=== PATIENT | male | born 1945 | race Caucasian/White ===

== ENCOUNTER 2020-05-10 19:11 | Emergency (ER) | payer MEDICARE, OTHER ==
--- NOTE | 2020-05-10 19:53 | EDM.PDOC ---
ED HPI GENERAL MEDICAL PROBLEM - General Chief Complaint: Respiratory Problem Stated Complaint: COVID +, SOB Time Seen by Provider: 05/10/20 19:37 Source of Information: Reports: Patient History Limitations: Reports: No Limitations - History of Present Illness INITIAL COMMENTS - FREE TEXT/NARRATIVE: Mr. Cristina is a very pleasant 74-year-old gentleman with a past medical history significant for coronary artery disease and an HI, status post one coronary stent, who states that a friend of his tested positive for COVID-19 last week, therefore the patient got tested this past Monday morning, 05/06/2020, receiving a positive result yesterday, 05/09/2020. He states that he has had a burning sensation in his chest with exertion for the past 2 to 3 days, along with a nonproductive cough. He then developed dyspnea on exertion today, and noticed a "gurgling" sound when he laid back earlier today. No recent fever, nausea, vomiting, or diarrhea. Here in the ED, the patient's initial BP is found to be elevated at 191/95, otherwise, the patient is hemodynamically stable, afebrile, saturating 94% on room air. Prior to 2 to 3 days ago, the patient denies having a recent fever, chills, sore throat, ear pain, nasal or sinus congestion, cough, dyspnea, chest pain, palpitations, nausea, vomiting, constipation, diarrhea, abdominal pain, urinary symptoms, recent weight gain or weight loss, recent bloody bowel movements or black bowel movements, recent joint aches, headaches, or rashes. - Related Data Allergies Allergy/AdvReac Type Severity Reaction Status Date / Time caffeine [From Diurex] Allergy Severe Cannot Verified 05/10/20 19:41 Remember magnesium salicylate Allergy Severe Cannot Verified 05/10/20 19:41 [From Diurex] Remember Proagsh-Eul-Kqc Reductase Allergy Severe Cannot Verified 05/10/20 19:41 Inhibitor Remember Home Meds: Home Meds Acyclovir 1 tab PO Q12H #14 tablet 05/10/20 [Rx] Levofloxacin [Levaquin] 1 tab PO QPM #7 tablet 05/10/20 [Rx] Past Medical History Cardiovascular History: Reports: CAD, HI Gastrointestinal History: Reports: Celiac Disease - Infectious Disease History Infectious Disease History: Reports: Novel Coronavirus (dx'd 05/06/2020) - Past Surgical History Cardiovascular Surgical History: Reports: Coronary Artery Stent (x 1) ED ROS GENERAL - Review of Systems Review Of Systems: Comprehensive ROS is negative, except as noted in HPI. ED EXAM, GENERAL - Physical Exam Exam: See Below Exam Limited By: No Limitations General Appearance: Alert, WD/WN, No Apparent Distress Eye Exam: Bilateral Eye: EOMI, Normal Inspection Ears: Normal External Exam, Hearing Grossly Normal Nose: Normal Inspection Throat/Mouth: Normal Inspection, Normal Lips, Normal Voice, No Airway Compromise Head: Atraumatic, Normocephalic Neck: Normal Inspection, Full Range of Motion Respiratory/Chest: No Respiratory Distress, No Accessory Muscle Use, Rhonchi (scattered). No: Decreased Breath Sounds, Crackles, Wheezing, Stridor, Prolonged Expiration Cardiovascular: Normal Peripheral Pulses, Regular Rate, Rhythm, No Gallop, No JVD, No Murmur, No Rub Peripheral Pulses: 3+: Radial (L), Radial (R) GI/Abdominal: Normal Bowel Sounds, Soft, Non-Tender, No Organomegaly, No Distention, No Abnormal Bruit, No Mass Back Exam: Normal Inspection, Full Range of Motion, NT Extremities: Normal Inspection, Normal Range of Motion, Normal Capillary Refill, Other (1+ pitting pretibial edema bilaterally) Neurological: Alert, Oriented, Normal Cognition, No Motor/Sensory Deficits Psychiatric: Normal Affect Skin Exam: Warm, Dry, Intact, Normal Color, No Rash #1 Interpretation EKG Date: 05/10/20 Time: 20:24 Rhythm: NSR Rate (Beats/Min): 81 Peggs: Normal P-Wave: Present QRS: RBBB ST-T: Elevated (ST elevation w/ T-wave inversion leads III, aVF only.) QT: Prolonged (QTc 473 ms) Comparison: NA - No Prior EKG Course - Vital Signs Last Recorded V/S: Last Vital Signs Temp 36.7 C 05/10/20 19:37 Pulse 78 05/10/20 19:37 Resp 18 05/10/20 19:37 BP 191/85 H 05/10/20 19:37 Pulse Ox 94 L 05/10/20 19:37 - Orders/Labs/Meds Orders: Active Orders 24 hr Category Date Time Status Chest 2V [CR] Stat Exams 05/10/20 19:48 Taken Labs: Laboratory Tests 05/10/20 05/10/20 05/10/20 Range/Units 20:10 20:10 20:10 WBC 1.43 L* (4.23-9.07) K/mm3 RBC 2.49 L (4.63-6.08) M/mm3 Hgb 8.9 L (13.7-17.5) gm/dl Hct 26.1 L (40.1-51.0) % MCV 104.8 H (79.0-92.2) fl MCH 35.7 H (25.7-32.2) pg MCHC 34.1 (32.2-35.5) g/dl RDW Std Deviation 57.6 H (35.1-43.9) fL Plt Count 18 L* (163-337) K/mm3 MPV 9.1 L (9.4-12.3) fl Neutrophils % (Manual) 12 L (40-60) % Band Neutrophils % 0 (0-10) % Lymphocytes % (Manual) 86 H (20-40) % Atypical Lymphs % 0 % Monocytes % (Manual) 1 L (2-10) % Eosinophils % (Manual) 1 (0.8-7.0) % Basophils % (Manual) 0 L (0.2-1.2) Platelet Estimate Marked inc Plt Morphology Comment See note Polychromasia Few Anisocytosis 2+ moderate Macrocytosis 2+ moderate Ovalocytes 1+ slight RBC Morph Comment Not Reportable Percent Retic (0.51-1.81) % D-Dimer, Quantitative 0.79 H (0.19-0.50) mg/L Sodium 137 (136-145) mEq/L Potassium 4.2 (3.5-5.1) mEq/L Chloride 100 (98-107) mEq/L Carbon Dioxide 30 (21-32) mEq/L Anion Gap 11.2 (5-15) BUN 20 H (7-18) mg/dL Creatinine 1.2 (0.7-1.3) mg/dL Est Cr Clr Drug Dosing 56.61 mL/min Estimated GFR (MDRD) 59 (>60) mL/min BUN/Creatinine Ratio 16.7 (14-18) Glucose 115 (83-115) mg/dL Calcium 8.6 (8.5-10.1) mg/dL Magnesium 1.8 (1.8-2.4) mg/dl Iron (65-175) ug/dL TIBC (100-400) ug/dL % Saturation (20-55) % Transferrin (202-364) mg/dL Ferritin (26-388) ng/ml Total Bilirubin 0.4 (0.2-1.0) mg/dL AST 17 (15-37) U/L ALT 50 (16-63) U/L Alkaline Phosphatase 76 (46-116) U/L Lactate Dehydrogenase (85-227) U/L Troponin I < 0.017 (0.00-0.056) ng/mL Total Protein 8.0 (6.4-8.2) g/dl Albumin 3.8 (3.4-5.0) g/dl Globulin 4.2 gm/dL Albumin/Globulin Ratio 0.9 L (1-2) Vitamin B12 (193-986) pg/ml Folate (8.6-58.9) ng/mL 05/10/20 05/10/20 05/10/20 Range/Units 20:10 20:10 20:10 WBC (4.23-9.07) K/mm3 RBC (4.63-6.08) M/mm3 Hgb (13.7-17.5) gm/dl Hct (40.1-51.0) % MCV (79.0-92.2) fl MCH (25.7-32.2) pg MCHC (32.2-35.5) g/dl RDW Std Deviation (35.1-43.9) fL Plt Count (163-337) K/mm3 MPV (9.4-12.3) fl Neutrophils % (Manual) (40-60) % Band Neutrophils % (0-10) % Lymphocytes % (Manual) (20-40) % Atypical Lymphs % % Monocytes % (Manual) (2-10) % Eosinophils % (Manual) (0.8-7.0) % Basophils % (Manual) (0.2-1.2) Platelet Estimate Plt Morphology Comment Polychromasia Anisocytosis Macrocytosis Ovalocytes RBC Morph Comment Percent Retic 0.92 (0.51-1.81) % D-Dimer, Quantitative (0.19-0.50) mg/L Sodium (136-145) mEq/L Potassium (3.5-5.1) mEq/L Chloride (98-107) mEq/L Carbon Dioxide (21-32) mEq/L Anion Gap (5-15) BUN (7-18) mg/dL Creatinine (0.7-1.3) mg/dL Est Cr Clr Drug Dosing mL/min Estimated GFR (MDRD) (>60) mL/min BUN/Creatinine Ratio (14-18) Glucose (83-115) mg/dL Calcium (8.5-10.1) mg/dL Magnesium (1.8-2.4) mg/dl Iron 111 (65-175) ug/dL TIBC 248 (100-400) ug/dL % Saturation 45 (20-55) % Transferrin 198 L (202-364) mg/dL Ferritin 968 H (26-388) ng/ml Total Bilirubin (0.2-1.0) mg/dL AST (15-37) U/L ALT (16-63) U/L Alkaline Phosphatase (46-116) U/L Lactate Dehydrogenase 241 H (85-227) U/L Troponin I (0.00-0.056) ng/mL Total Protein (6.4-8.2) g/dl Albumin (3.4-5.0) g/dl Globulin gm/dL Albumin/Globulin Ratio (1-2) Vitamin B12 298 (193-986) pg/ml Folate 11.4 (8.6-58.9) ng/mL Meds: Medications Discontinued Medications Generic Name Dose Route Start Last Admin Trade Name Freq PRN Reason Stop Dose Admin Acyclovir 400 mg 05/10/20 22:39 05/10/20 22:56 Zovirax PO 05/10/20 22:40 400 mg ONETIME ONE Administration Bamlanivimab 700 mg/ Sodium 200 mls @ 200 mls/hr 05/10/20 19:57 05/10/20 20:26 Chloride IV 05/10/20 19:58 200 mls/hr ONETIME STA Administration Protocol Levofloxacin 500 mg 05/10/20 22:39 05/10/20 22:55 Levaquin PO 05/10/20 22:40 500 mg ONETIME STA Administration - Re-Assessments/Exams Free Text/Narrative Re-Assessment/Exam: 05/10/20 19:58 I spoke with the patient regarding administration of bamlanivimab. The patient will be provided with a bamlanivimab fact sheet to read and review. I pointed out that this drug has been approved for emergency use authorization (EUA) and has not been fully FDA reviewed or approved. The patient meets EUA requirements, in that he is over 65 years of age with a BMI over 35. I discussed with the patient that there are other potential treatment options that are currently not FDA approved to treat COVID-19. All questions that the patient had were answered, and the patient would like us to proceed with administration of the medicine. 05/10/20 20:34 The patient's CBC is remarkable for a WBC count significantly depressed at 1.43, with an H/H depressed at 8.9/26.1, and severe thrombocytopenia of 18,000. We have no prior labs to compare. I discussed this with the patient. He states that he believes he had blood work performed at his PCPs office about 2 months ago, and that everything was normal. I offered the patient the opportunity to change his mind on receiving bamlanivimab, although I noted that pancytopenia is not a listed contraindication to receiving it. The patient would like to proceed with receiving it, anyway. The patient will need to follow-up with his PCP for referral to a Medical Office Technologist. In order to facilitate their evaluation, I have ordered an Fe/TIBC/transferrin/% saturation, ferritin, LDH, reticulocyte count, folic acid level, and vitamin B12 level. 05/10/20 21:22 2-view chest radiograph is read by Hodan as "Minimal hazy opacities over the lung bases." The patient's D-dimer is slightly elevated at 0.79. His LDH is slightly elevated at 241, his ferritin elevated at 968, and his transferrin slightly depressed at 198, with the remainder of his iron studies being unremarkable. His reticulocyte count is 0.92%, giving him a reticulocyte index of only 0.3%. 05/10/20 22:13 Notified by Morenita HILTON that the bamlanivimab has finished infusing. 05/10/20 22:21 Test results discussed with the patient. I recommended that he contact Dr. Melgoza's office first thing tomorrow morning to notify them of his pancytopenia. COVID-19 is known to cause lymphopenia and thrombocytopenia, but I find no record of it causing leukopenia, anemia, or pancytopenia. He appears to have bone marrow failure, possibly due to myelodysplastic syndrome or some other marrow condition. He states that he does not currently have a pulse oximeter, but I believe he qualifies for one from [facility]. If he gets a pulse oximeter, I would like him to return to the ED if his oxygen saturation drops down to 90% or below. 05/10/20 22:37 Case discussed with Tennille at [facility] [place] [facility] call at 2230, then with the oral surgery technician Dr. Felice Gr at 22:33. He, too, is not aware of COVID-19 causing pancytopenia and he is concerned that the patient may be suffering from a separate illness, such as leukemia, causing his pancytopenia. For today's purposes, he recommended that we start the patient on Levaquin 500 mg daily and acyclovir 400 mg twice daily. The patient may be discharged home, then follow- up with his PCP as planned tomorrow. Departure - Departure Time of Disposition: 22:45 Disposition: Home, Self-Care 01 Condition: Good Clinical Impression: COVID-19, Pancytopenia - Discharge Information *PRESCRIPTION DRUG MONITORING PROGRAM REVIEWED*: Not Applicable *COPY OF PRESCRIPTION DRUG MONITORING REPORT IN PATIENT CECY: Not Applicable Prescriptions: Acyclovir 1 tab PO Q12H #14 tablet Levofloxacin [Levaquin] 1 tab PO QPM #7 tablet Instructions: COVID-19 Referrals: Christopher Melgoza MD [Primary Care Provider] - [place] MD [Ordering Only Provider] - Keshawn An MD [Ordering Only Provider] - Forms: ED Department Discharge Additional Instructions: You were seen in the emergency room for 2 to 3 days of burning in your chest with exertion, along with shortness of breath with exertion today, and a dry cough, after testing positive for COVID-19 on 05/06/2020. Work-up in the ER included a number of blood tests, a chest x-ray, and an ECG. Your blood tests found that you have pancytopenia = a low white blood cell count, a low hemoglobin/hematocrit, and low platelets. The remainder of your work-up was unremarkable. You were given the anti-COVID medicine bamlanivimab in the ER. This medicine will hopefully prevent you from getting sick enough that you need to be hospitalized. The cause of your pancytopenia is not yet known. Further work-up, including a possible bone marrow biopsy, is needed. We recommend that you contact the office of your PCP, Dr. Christopher Melgoza, first thing tomorrow morning. Let them know that you have pancytopenia, and that you need to be referred to a Medical Office Technologist. Because your white blood cell count is so low, you have been started on the anti-viral medicine acyclovir and the antibiotic Levaquin. Prescriptions for both acyclovir and Levaquin have been sent to the clinic pharmacy, located in the [facility] across the street from the hospital. Take 1 tablet of acyclovir every 12 hours, starting tomorrow morning, 05/11/2020, as prescribed. Take 1 tablet of Levaquin every evening, starting tomorrow evening, 05/11/2020 as prescribed. You probably qualify for a finger pulse oximeter from [facility]. Your oxygen saturation drops as low as 90%, consistently, please return to the ER for reevaluation. Sepsis Event Note (ED) - Evaluation Sepsis Screening Result: No Definite Risk - Focused Exam Vital Signs: Vital Signs Temp Pulse Resp BP Pulse Ox 05/10/20 19:37 36.7 C 78 18 191/85 H 94 L - My Orders Last 24 Hours: My Active Orders 05/10/20 19:48 Chest 2V [CR] Stat - Assessment/Plan Last 24 Hours: My Active Orders 05/10/20 19:48 Chest 2V [CR] Stat
[2020-05-10] MEDS ORDERED: Levofloxacin 500 MG Tab PO STA (22:39)
[2020-05-10] MEDS ORDERED: Acyclovir 200 MG Cap PO ONE (22:39)
--- NOTE | 2020-05-11 10:16 | CR ---
PROCEDURE INFORMATION: Exam: XR Chest, 2 Views Exam date and time: 05/10/2020 8:12 PM Age: 74 years old Clinical indication: Shortness of breath; Patient HX: Cough, SOB, covid positive, symptoms onset 6 days ago and worsening TECHNIQUE: Imaging protocol: XR of the chest Views: 2 views. COMPARISON: No relevant prior studies available. FINDINGS: Lungs: Unremarkable. No consolidation. Pleural space: Unremarkable. No pleural effusion. No pneumothorax. Heart/Mediastinum: Unremarkable. No cardiomegaly. Vasculature: Tortuous thoracic aorta. Bones/joints: Anterior thoracic spurs. Other findings: Minimal hazy opacity over the lung bases. IMPRESSION: Patchy bilateral lower lobe atelectasis and or minimal pneumonia. Thank you for allowing us to participate in the care of your patient. Dictated and Authenticated by: Norman Pandey MD 05/10/2020 9:38 PM Central Time ([place] & [place]) [place]
== END 2020-05-10 23:03 | disposition home or self-care (01) ==
LOC: JD.ED 19:11
DX: U07.1 COVID-19 (principal); D61.818 Other pancytopenia; Z88.8 Allergy status to other drugs, medicaments and biological substances
CPT/HCPCS: 36415; 71046; 80053; 82607; 82728; 82746; 83540; 83615; 83735; 84466; 84484; 85007; 85027; 85045; 85379; 93005; 96365; 99285; A9270; J7050

== ENCOUNTER 2020-05-15 12:20 | Emergency (ER) | payer MEDICARE, OTHER ==
[2020-05-15] MEDS ORDERED: Sodium Chloride 0.9% 10 ML Syringe FLUSH PRN (15:21)
--- NOTE | 2020-05-15 15:38 | EDM.PDOC ---
ED HPI GENERAL MEDICAL PROBLEM - General Chief Complaint: General Stated Complaint: ABNORMAL BLOOD WORK SENT BY [facility] Time Seen by Provider: 05/15/20 15:05 Source of Information: Reports: Patient, Old Records (ER visit from 05/10/2020), Provider (Dr. Shira Cuadra), RN Notes Reviewed History Limitations: Reports: No Limitations - History of Present Illness INITIAL COMMENTS - FREE TEXT/NARRATIVE: Patient is a 74-year-old male who presents to the ER via direction from Dr. Shira Cuadra for abnormal blood work. The patient is status post COVID-19 infection, just off quarantine. He was evaluated in this ER on 05/10/[address] Lopez, was found to have a low white blood cell count at 1.43, low red blood cell count of 2.49, hemoglobin low at 8.9, and his platelet count was low at 18. Dr. Lopez was concerned for the possibility of leukemia, the patient was to follow-up with his primary care provider for repeat labs and a referral to hematology. The patient did as such, but found that his platelets were even lower today, and a level of 3 with pancytopenia once again noted, so Dr. Cuadra sent him to the ER for IVIG therapy. He states that he still has a generalized cough relating to a post Covid infection but otherwise feeling well no fevers or chills, shortness of breath, nausea/vomiting/diarrhea. - Related Data Allergies Allergy/AdvReac Type Severity Reaction Status Date / Time caffeine [From Diurex] Allergy Severe Cannot Verified 05/10/20 19:41 Remember magnesium salicylate Allergy Severe Cannot Verified 05/10/20 19:41 [From Diurex] Remember Katgqza-Nqz-Grf Reductase Allergy Severe Cannot Verified 05/10/20 19:41 Inhibitor Remember Home Meds: Home Meds Acyclovir 1 tab PO Q12H #14 tablet 05/10/20 [Rx] Levofloxacin [Levaquin] 1 tab PO QPM #7 tablet 05/10/20 [Rx] Aspirin [Halfprin] 81 mg PO DAILY 05/15/20 [History] Doxazosin [Cardura] 4 mg PO DAILY 05/15/20 [History] Losartan [Cozaar] 50 mg PO DAILY 05/15/20 [History] Pitavastatin Calcium [Livalo] 1 mg PO DAILY 05/15/20 [History] Spironolactone [Aldactone] 25 mg PO DAILY 05/15/20 [History] Ubidecarenone [Co Q-10] 100 mg PO DAILY 05/15/20 [History] carvediloL [Coreg] 12.5 mg PO DAILY 05/15/20 [History] Past Medical History Cardiovascular History: Reports: CAD, High Cholesterol, Hypertension, [place], Stents Gastrointestinal History: Reports: Celiac Disease - Infectious Disease History Infectious Disease History: Reports: Novel Coronavirus - Past Surgical History Cardiovascular Surgical History: Reports: Coronary Artery Stent Other Cardiovascular Surgeries/Procedures: stent Social & Family History - Tobacco Use Tobacco Use Status *Q: Never Tobacco User - Caffeine Use Caffeine Use: Reports: Coffee, Soda, Tea - Recreational Drug Use Recreational Drug Use: No ED ROS GENERAL - Review of Systems Review Of Systems: Comprehensive ROS is negative, except as noted in HPI. ED EXAM, GENERAL - Physical Exam Exam: See Below Exam Limited By: No Limitations General Appearance: Alert, WD/WN, No Apparent Distress Respiratory/Chest: No Respiratory Distress, Lungs Clear, Normal Breath Sounds, No Accessory Muscle Use, Chest Non-Tender Cardiovascular: Normal Peripheral Pulses, Regular Rate, Rhythm, No Murmur Peripheral Pulses: 2+: Radial (L), Radial (R) Extremities: Normal Inspection, Normal Capillary Refill Neurological: Alert, Oriented, Normal Cognition, No Motor/Sensory Deficits Psychiatric: Normal Affect, Normal Mood Skin Exam: Warm, Dry, Intact, Normal Color, No Rash Course - Vital Signs Last Recorded V/S: Last Vital Signs Temp 97.9 F 05/15/20 13:53 Pulse 58 L 05/15/20 13:53 Resp 20 05/15/20 13:53 BP 138/84 05/15/20 13:53 Pulse Ox 100 05/15/20 13:53 - Orders/Labs/Meds Orders: Active Orders 24 hr Category Date Time Status Peripheral IV Care [RC] . DIRECTED Care 05/15/20 15:22 Active Sodium Chloride 0.9% [Saline Flush] Med 05/15/20 15:21 Active 10 ml FLUSH ASDIRECTED PRN Peripheral IV Insertion Adult [OM.PC] Routine Oth 05/15/20 15:21 Ordered Medication Orders Sodium Chloride (Saline Flush) 10 ml FLUSH ASDIRECTED PRN PRN Reason: Keep Vein Open Meds: Medications Generic Name Dose Route Start Last Admin Trade Name Nicolette PRN Reason Stop Dose Admin Sodium Chloride 10 ml 05/15/20 15:21 Saline Flush FLUSH ASDIRECTED PRN Keep Vein Open - Re-Assessments/Exams Free Text/Narrative Re-Assessment/Exam: 05/15/20 15:41 The patient presents to the ED for his pancytopenia, and low platelet level. This was initially uncovered on his ER visit at 05/10/2020. Laboratory evaluation done at [facility] today does demonstrate a low white cell count of 2.6, red blood cell count at 2.24, hemoglobin is low at 8.3, and a platelet count of 3. He was initially sent over here by Dr. Shira Cuadra for the possibility of IVIG, I did call her, for dosing recommendations, but she states she did not even see the patient in clinic and sent him over here just for the lab values. She suggests calling hematology for further management purposes. Dr. Lopez did speak with hematology at [facility] in [place] at the patient's last ER visit, I will call them for further recommendations at this time. He spoke with a Dr. Felice Gr originally. 05/15/20 16:30 I have made multiple calls, I did talk to Dr. Prasad regarding the patient's status, he does not believe that IVIG would be helpful, this does not sound like this is a ITP process. He does state that the patient may benefit from 1 unit of platelets however. Unfortunately we do not have access to this, it would take a prolonged amount of time to get here, the patient is vitally stable and would not like to wait. I did explain to him that the services he needs are best available to him in [facility], he states that he does have a daughter that lives there, and after discharge here he will go to [place], in case he would feel some lingering symptoms and he would need to go to the ER, and they could possibly do platelet infusion at that time. Otherwise the automation manager suggested getting a repeat blood levels on Monday or Monday, and he does stress the fact the patient needs a follow-up with hematology for possible bone marrow biopsy. Departure - Departure Time of Disposition: 16:33 Disposition: Home, Self-Care 01 Condition: Good Clinical Impression: Pancytopenia - Discharge Information *PRESCRIPTION DRUG MONITORING PROGRAM REVIEWED*: No *COPY OF PRESCRIPTION DRUG MONITORING REPORT IN PATIENT CECY: No Referrals: Christopher Melgoza MD [Primary Care Provider] - Forms: ED Department Discharge Additional Instructions: You were evaluated in the ER today regarding your pancytopenia once again. Hematology was called on your behalf, they state that you may benefit from a single unit of platelets, unfortunately that is not something we would be able to do an expeditious process in the ER today. At this time her vitals are stable, you are not bleeding, so you will be discharged home with general conservative recommendations. I do recommend that you follow-up with hematology or your primary care provider, Dr. Travis, Monday for redraw of your labs to make sure that your levels are not getting in fact lower. You will need to follow-up with hematology for a possible bone marrow biopsy for further evaluation and management. You indicated you had a daughter in [place], I would recommend staying with her this weekend, so if your symptoms deteriorate, you are at a facility that would be able to help you with what you need. Please return to the ER however at any time if symptoms change or worsen. Sepsis Event Note (ED) - Evaluation Sepsis Screening Result: No Definite Risk - Focused Exam Vital Signs: Vital Signs Temp Pulse Resp BP Pulse Ox 05/15/20 13:53 97.9 F 58 L 20 138/84 100 - My Orders Last 24 Hours: My Active Orders 05/15/20 15:21 Sodium Chloride 0.9% [Saline Flush] 10 ml FLUSH ASDIRECTED PRN Peripheral IV Insertion Adult [OM.PC] Routine 05/15/20 15:22 Peripheral IV Care [RC] . DIRECTED - Assessment/Plan Last 24 Hours: My Active Orders 05/15/20 15:21 Sodium Chloride 0.9% [Saline Flush] 10 ml FLUSH ASDIRECTED PRN Peripheral IV Insertion Adult [OM.PC] Routine 05/15/20 15:22 Peripheral IV Care [RC] . DIRECTED
== END 2020-05-15 16:53 | disposition home or self-care (01) ==
LOC: JD.ED 12:20
DX: D61.818 Other pancytopenia (principal); I25.10 Atherosclerotic heart disease of native coronary artery without angina pectoris; E78.00 Pure hypercholesterolemia, unspecified; I10 Essential (primary) hypertension; I25.2 Old myocardial infarction; Z95.5 Presence of coronary angioplasty implant and graft; Z88.8 Allergy status to other drugs, medicaments and biological substances; Z79.82 Long term (current) use of aspirin; Z79.899 Other long term (current) drug therapy
CPT/HCPCS: 99284

== ENCOUNTER 2020-06-30 14:34 | Inpatient (IN) | payer MEDICARE, OTHER ==
[2020-06-30] MEDS ORDERED: Ondansetron 4 MG/2 ML SDV IV PRN (14:38)
[2020-06-30] MEDS ORDERED: Albuterol/Ipratropium 3.0-0.5 MG/3 ML Neb Soln NEB PRN (14:38)
[2020-06-30] MEDS ORDERED: Promethazine 12.5 MG in Sodium Chloride 0.9% 50 ML IV PRN (14:38)
[2020-06-30] MEDS ORDERED: HYDROmorphone 0.5 MG/0.5 ML Syringe IVPUSH PRN (14:38)
[2020-06-30] MEDS ORDERED: Ibuprofen 600 MG Tab PO PRN (14:38)
[2020-06-30] MEDS ORDERED: Acetaminophen/HYDROcodone 325-5 MG Tab PO PRN (14:38)
[2020-06-30] MEDS ORDERED: Zolpidem 5 MG Tab PO PRN (14:38)
[2020-06-30] MEDS ORDERED: Polyethylene Glycol 3350 Powder 17 GM Packet PO PRN (14:38)
[2020-06-30] MEDS ORDERED: Acetaminophen 650 MG Supp RECTAL PRN (14:38)
--- NOTE | 2020-06-30 14:38 | PCM.HP.2 ---
H&P History of Present Illness - General Date of Service: 06/30/20 Admit Problem/Dx: Severe Neutropenia Source of Information: Patient, Old Records, Provider, RN Notes Reviewed, Significant Other History Limitations: Reports: No Limitations - History of Present Illness Initial Comments - Free Text/Narative: This is a 74 yo elderly white male with past medical hx/o COVID 19 Infection and Aplastic Anemia S/p BM biopsy 2 weeks currently on chemotherapy with Anti Thymocyte Globulin, Cyclosporines, Methylprednisolone as well Filgrastin (Zarxio), and Obesity who comes to us for further management of Severe Neutropenia and Community Acquired Pneumonia diagnosed at the clinic today while he was being seen for routine follow up labs. He reports having subjective fever as high as 100.5 F, chills, cough, shortness of breath, fatigue and generalized weakness. No GI/ complaints. His initial work up at the clinic showed a Hgb of 8.6 grams, Platelet of 14K, and ANC of 0. He received an infusion of zarxio prior to coming up to the hospital for further treatment. He had 2 units of PRBC and 1 unit of Platelet infusion yesterday. He does not look septic or in acute respiratory distress. - Related Data Allergies/Adverse Reactions: Allergies Allergy/AdvReac Type Severity Reaction Status Date / Time tamsulosin [From Flomax] Allergy Cannot Verified 06/10/20 13:19 Remember caffeine [From Diurex] AdvReac Unknown Cough Verified 06/30/20 15:55 magnesium salicylate AdvReac Unknown Cough Verified 06/30/20 15:55 [From Diurex] [id number] Reductase AdvReac Unknown Leg Cramps Verified 06/30/20 15:55 Inhibitor hydrochlorothiazide AdvReac Cough Verified 06/30/20 15:55 rosuvastatin [From Crestor] AdvReac Leg Cramps Verified 06/30/20 15:55 simvastatin [From Zocor] AdvReac Leg Cramps Verified 06/30/20 15:55 Home Medications: Home Meds Acyclovir 1 tab PO Q12H #14 tablet 05/10/20 [Rx] Levofloxacin [Levaquin] 1 tab PO QPM #7 tablet 05/10/20 [Rx] Aspirin [Halfprin] 81 mg PO DAILY 05/15/20 [History] Doxazosin [Cardura] 4 mg PO DAILY 05/15/20 [History] Losartan [Cozaar] 50 mg PO DAILY 05/15/20 [History] Pitavastatin Calcium [Livalo] 1 mg PO DAILY 05/15/20 [History] Spironolactone [Aldactone] 25 mg PO DAILY 05/15/20 [History] Ubidecarenone [Co Q-10] 100 mg PO DAILY 05/15/20 [History] carvediloL [Coreg] 12.5 mg PO DAILY 05/15/20 [History] Past Medical History Cardiovascular History: Reports: CAD, High Cholesterol, Hypertension, [place], Stents Gastrointestinal History: Reports: Celiac Disease - Infectious Disease History Infectious Disease History: Reports: Novel Coronavirus - Past Surgical History Cardiovascular Surgical History: Reports: Coronary Artery Stent Other Cardiovascular Surgeries/Procedures: stent Social & Family History - Caffeine Use Caffeine Use: Reports: Coffee, Soda, Tea H&P Review of Systems - Review of Systems: Review Of Systems: See Below General: Reports: Fever, Chills, Weakness, Fatigue. Denies: Night Sweats, Decreased Appetite, Weight Loss HEENT: Denies: Headaches, Rhinitis Pulmonary: Reports: Shortness of Breath, Cough. Denies: Pleuritic Chest Pain Cardiovascular: Reports: Chest Pain. Denies: Lightheadedness, Claudication Gastrointestinal: Denies: Abdominal Pain, Nausea, Vomiting Genitourinary: Denies: Frequency Musculoskeletal: Denies: Joint Pain Skin: Denies: Cyanosis, Bruising, Rash Psychiatric: Denies: Confusion, Depression, Anxiety, Hallucinations Neurological: Denies: Dizziness, Seizure, Syncope, Difficulty Walking, Gait Disturbance Hematologic/Lymphatic: Reports: No Symptoms Immunologic: Reports: No Symptoms Exam - Exam Exam: See Below - Exam General: Alert, Oriented, Other (Morbidly Obese) HEENT: Conjunctiva Clear, EACs Clear, EOMI, Hearing Intact, Mucosa Moist & [place], Nares Patent, Normal Nasal Septum, Posterior Pharynx Clear, Pupils Equal Neck: Supple, Trachea Midline, Other (short and thick). No: JVD Lungs: Clear to Auscultation, Normal Respiratory Effort, Decreased Breath Sounds Cardiovascular: Regular Rate, Regular Rhythm GI/Abdominal Exam: Normal Bowel Sounds, Soft, Non-Tender, No Organomegaly, No Distention, No Abnormal Bruit, Other (Obese) (Male) Exam: Deferred Rectal (Males) Exam: Deferred Back Exam: Normal Inspection, Decreased Range of Motion, Vertebral Tenderness Extremities: Normal Inspection, Non-Tender, No Pedal Edema, Normal Capillary Refill, Pedal Edema, Other (trace bilateral lower extremity edema) Peripheral Pulses: 1+: Dorsalis Pedis (L), Dorsalis Pedis (R) Skin: Warm, Dry, Intact Neuro Extensive - Mental Status: Oriented x3, Normal Cognition, Memory Intact Neuro Extensive - Motor, Sensory, Reflexes: CN II-XII Intact, Normal Gait Psychiatric: Alert, Normal Affect, Normal Mood - Patient Data Result Diagrams: 06/30/20 15:05 06/30/20 15:05 Problem List Initiated/Reviewed/Updated: Yes Assessment/Plan Comment:: This is a 74 yo elderly white male with past medical hx/o COVID 19 Infection and Aplastic Anemia S/p BM biopsy 2 weeks currently on chemotherapy with Anti Thymocyte Globulin, Cyclosporines, Methylprednisolone as well Filgrastin (Z arxio), and Obesity who comes to us as a direct admit from the clinic for further management for Severe Neutropenia and Community Acquired Pneumonia diagnosed at the clinic today while he was being seen for routine follow up labs. Assessment: Acute: Sepsis secondary to community acquired pneumonia Severe neutropenia with ANC of 0 Pancytopenia: Moderate anemia, Severe neutropenia, Severe thrombocytopenia and Relative lymphocytosis via BM * Hgb 7 grams yesterday and received 2 units of PRBC at the clinic * Platelet 1K yesterday and received 1 unit of Platelet at the clinic * Cut off: infuse blood if symptomatic and Platelet if < 10K or < 20K with active bleeding/fever per Oncology provider Aplastic Anemia currently on chemotherapy: cyclosporin, methylprednisolone, and zarxio S/p BM Biopsy : * Hypocellular marrow with markedly decreased trilineage hematopoiesis. No increased blasts. Relative lymphohistiocytic hyperplasia with plasmacytosis. * Deemed ineligible for transplant from note obtained at the clinic Right Middle Lobe PNA Lactic Acidosis * LA of 4.0 * Likely from underlying sepsis * Volume resuscitation Hx/o Covid -19 Infection in Nov Hyperglycemia * Carries no hx/o Diabetes or Glucose Intolerance * However he has been on steroid * Screen for A1C and Accu-check TIDAC with ISS Hypocalcemia * Non corrected Ca level of 8.4 * Will monitor Hypomagnesemia * Mg of 1.6 * Likely due to inadequate intake * Will replete Mildly Elevated T. Bilirubin of 1.3 Elevated CRP of 11.6 Hypoalbuminemia with Albumin of 2.5 Class III Obese Chronic: Aplastic Anemia, S/p BM Biopsy and Morbid Obesity Plan: Admit to [facility]. Sepsis work up. Routine AM Labs. MRSA screen. IV Cefepime 1 gram Q8H, Micafungin 100 mg daily, Acyclovir 730 mg IV Q8H for empiric treatment. Dietary consult for weight management. Viral panel. No repeat COVID- 19 test, he is within the 90-day window per hospital protocol. Isolation protocol. DVT/GI prophylaxis: SCDs due to low platelet level and H2B. Resume some home medications once verified. PT/OT when appropriate. Avoid ASA and Anticoagulations. Type and screen 2 units of PRBC-repeat Hgb is 7.6 grams and symptomatic right now. Mg supplement. Code status is full. Prognosis is guarded. Critical care time spent: > 45 mins 1503: Patient is infusing 2.5L of crystalloid fluids for initial volume resuscitation.
[2020-06-30] MEDS ORDERED: Sodium Chloride 0.9% 1,000 ML IV SCH (14:45)
[2020-06-30] MEDS ORDERED: Fluconazole/Normal Saline 200 MG in Premix Bag 1 BAG IV SCH (15:00)
[2020-06-30] MEDS: Lactated Ringers 1,000 ML IV SCH ×3 (17:07→20:21)
[2020-06-30] MEDS: Micafungin 100 MG in Sodium Chloride 0.9% 100 ML IV SCH (17:15)
[2020-06-30] MEDS ORDERED: Magnesium Sulfate/Water 2 GM/50 ML BAG IV ONE (18:00)
[2020-06-30 19:47] LABS: HEMOGLOBIN A1C 7.1 % (4.50-6.20)
[2020-06-30] MEDS ORDERED: Cefepime 1 GM in Premix Bag 1 BAG IV SCH (20:00)
--- NOTE | 2020-07-01 07:45 | PCM.PN ---
- General Info Date of Service: 07/01/20 Admission Dx/Problem (Free Text): Severe Neutropenia Subjective Update: No overnight or acute issues. He feels better this morning. Afebrile and his WBC is slightly up to 0.82. His Hgb is stable at 7.7 grams and Platelet of 14K. Functional Status: Reports: Pain Controlled, Tolerating Diet, Ambulating, Urinating - Review of Systems General: Denies: Fever, Weakness, Chills HEENT: Denies: Contact Lenses Pulmonary: Denies: Shortness of Breath, Cough Cardiovascular: Denies: Chest Pain Gastrointestinal: Denies: Abdominal Pain, Nausea, Vomiting Genitourinary: Denies: Dysuria, Burning Musculoskeletal: Denies: Joint Pain Skin: Denies: Cyanosis, Pruritis, Rash Neurological: Denies: Confusion, Dizziness, Headache, Syncope, Weakness Psychiatric: Denies: Depression, Anxiety - Patient Data Vitals - Most Recent: Last Vital Signs Temp 36.4 C 07/01/20 04:19 Pulse 63 07/01/20 04:19 Resp 16 07/01/20 04:19 BP 134/97 H 07/01/20 04:19 Pulse Ox 95 07/01/20 04:19 Weight - Most Recent: 131.36 kg I&O - Last 24 Hours: Intake & Output 06/30/20 07/01/20 07/01/20 22:59 06:59 14:59 Intake Total 4200 Output Total 300 800 Balance -300 3400 Lab Results Last 24 Hours: Laboratory Results - last 24 hr 06/30/20 06/30/20 06/30/20 Range/Units 15:05 15:05 15:05 WBC 0.56 L* (4.23-9.07) K/mm3 RBC 2.50 L (4.63-6.08) M/mm3 Hgb 7.6 L (13.7-17.5) gm/dl Hct 21.9 L (40.1-51.0) % MCV 87.6 D (79.0-92.2) fl MCH 30.4 (25.7-32.2) pg MCHC 34.7 (32.2-35.5) g/dl RDW Std Deviation 46.0 H (35.1-43.9) fL Plt Count 22 L* (163-337) K/mm3 MPV 11.3 (9.4-12.3) fl Neut % (Auto) (34.0-67.9) % Lymph % (Auto) (21.8-53.1) % [place] % (Auto) (5.3-12.2) % Eos % (Auto) (0.8-7.0) Baso % (Auto) (0.1-1.2) % Neut # (Auto) (1.78-5.38) K/mm3 Lymph # (Auto) (1.32-3.57) K/mm3 [place] # (Auto) (0.30-0.82) K/mm3 Eos # (Auto) (0.04-0.54) K/mm3 Baso # (Auto) (0.01-0.08) K/mm3 Neutrophils % (Manual) 17 L (40-60) % Band Neutrophils % 3 (0-10) % Lymphocytes % (Manual) 73 H (20-40) % Atypical Lymphs % 0 % Monocytes % (Manual) 7 (2-10) % Eosinophils % (Manual) 0 L (0.8-7.0) % Basophils % (Manual) 0 L (0.2-1.2) Manual Slide Review Toxic Granulation Few Platelet Estimate Marked dec Plt Morphology Comment See note Anisocytosis 1+ slight Macrocytosis 1+ slight RBC Morph Comment Not Reportable ESR (0-15) mm/hr Sodium 138 (136-145) mEq/L Potassium 4.0 (3.5-5.1) mEq/L Chloride 101 (98-107) mEq/L Carbon Dioxide 24 (21-32) mEq/L Anion Gap 17.0 H (5-15) BUN 31 H (7-18) mg/dL Creatinine 1.2 (0.7-1.3) mg/dL Est Cr Clr Drug Dosing 56.61 mL/min Estimated GFR (MDRD) 59 (>60) mL/min BUN/Creatinine Ratio 25.8 H (14-18) Glucose 238 H (83-115) mg/dL POC Glucose (83-110) mg/dL Hemoglobin A1c (4.50-6.20) % Lactic Acid 4.0 H* (0.4-2.0) mmol/L Calcium 8.4 L (8.5-10.1) mg/dL Magnesium 1.6 L (1.8-2.4) mg/dl Total Bilirubin 1.3 H (0.2-1.0) mg/dL AST 7 L (15-37) U/L ALT 36 (16-63) U/L Alkaline Phosphatase 49 (46-116) U/L C-Reactive Protein (<1.0) mg/dL Total Protein 6.4 (6.4-8.2) g/dl Albumin 2.5 L (3.4-5.0) g/dl Globulin 3.9 gm/dL Albumin/Globulin Ratio 0.6 L (1-2) Blood Type Gel Antibody Screen Crossmatch 06/30/20 06/30/20 06/30/20 Range/Units 15:05 15:05 15:05 WBC (4.23-9.07) K/mm3 RBC (4.63-6.08) M/mm3 Hgb (13.7-17.5) gm/dl Hct (40.1-51.0) % MCV (79.0-92.2) fl MCH (25.7-32.2) pg MCHC (32.2-35.5) g/dl RDW Std Deviation (35.1-43.9) fL Plt Count (163-337) K/mm3 MPV (9.4-12.3) fl Neut % (Auto) (34.0-67.9) % Lymph % (Auto) (21.8-53.1) % [place] % (Auto) (5.3-12.2) % Eos % (Auto) (0.8-7.0) Baso % (Auto) (0.1-1.2) % Neut # (Auto) (1.78-5.38) K/mm3 Lymph # (Auto) (1.32-3.57) K/mm3 [place] # (Auto) (0.30-0.82) K/mm3 Eos # (Auto) (0.04-0.54) K/mm3 Baso # (Auto) (0.01-0.08) K/mm3 Neutrophils % (Manual) (40-60) % Band Neutrophils % (0-10) % Lymphocytes % (Manual) (20-40) % Atypical Lymphs % % Monocytes % (Manual) (2-10) % Eosinophils % (Manual) (0.8-7.0) % Basophils % (Manual) (0.2-1.2) Manual Slide Review Toxic Granulation Platelet Estimate Plt Morphology Comment Anisocytosis Macrocytosis RBC Morph Comment ESR 91 H (0-15) mm/hr Sodium (136-145) mEq/L Potassium (3.5-5.1) mEq/L Chloride (98-107) mEq/L Carbon Dioxide (21-32) mEq/L Anion Gap (5-15) BUN (7-18) mg/dL Creatinine (0.7-1.3) mg/dL Est Cr Clr Drug Dosing mL/min Estimated GFR (MDRD) (>60) mL/min BUN/Creatinine Ratio (14-18) Glucose (83-115) mg/dL POC Glucose (83-110) mg/dL Hemoglobin A1c (4.50-6.20) % Lactic Acid (0.4-2.0) mmol/L Calcium (8.5-10.1) mg/dL Magnesium (1.8-2.4) mg/dl Total Bilirubin (0.2-1.0) mg/dL AST (15-37) U/L ALT (16-63) U/L Alkaline Phosphatase (46-116) U/L C-Reactive Protein 11.6 H* (<1.0) mg/dL Total Protein (6.4-8.2) g/dl Albumin (3.4-5.0) g/dl Globulin gm/dL Albumin/Globulin Ratio (1-2) Blood Type B POSITIVE Gel Antibody Screen Negative Crossmatch See Detail 06/30/20 06/30/20 06/30/20 Range/Units 17:36 18:17 18:17 WBC (4.23-9.07) K/mm3 RBC (4.63-6.08) M/mm3 Hgb (13.7-17.5) gm/dl Hct (40.1-51.0) % MCV (79.0-92.2) fl MCH (25.7-32.2) pg MCHC (32.2-35.5) g/dl RDW Std Deviation (35.1-43.9) fL Plt Count (163-337) K/mm3 MPV (9.4-12.3) fl Neut % (Auto) (34.0-67.9) % Lymph % (Auto) (21.8-53.1) % [place] % (Auto) (5.3-12.2) % Eos % (Auto) (0.8-7.0) Baso % (Auto) (0.1-1.2) % Neut # (Auto) (1.78-5.38) K/mm3 Lymph # (Auto) (1.32-3.57) K/mm3 [place] # (Auto) (0.30-0.82) K/mm3 Eos # (Auto) (0.04-0.54) K/mm3 Baso # (Auto) (0.01-0.08) K/mm3 Neutrophils % (Manual) (40-60) % Band Neutrophils % (0-10) % Lymphocytes % (Manual) (20-40) % Atypical Lymphs % % Monocytes % (Manual) (2-10) % Eosinophils % (Manual) (0.8-7.0) % Basophils % (Manual) (0.2-1.2) Manual Slide Review Toxic Granulation Platelet Estimate Plt Morphology Comment Anisocytosis Macrocytosis RBC Morph Comment ESR (0-15) mm/hr Sodium (136-145) mEq/L Potassium (3.5-5.1) mEq/L Chloride (98-107) mEq/L Carbon Dioxide (21-32) mEq/L Anion Gap (5-15) BUN (7-18) mg/dL Creatinine (0.7-1.3) mg/dL Est Cr Clr Drug Dosing mL/min Estimated GFR (MDRD) (>60) mL/min BUN/Creatinine Ratio (14-18) Glucose (83-115) mg/dL POC Glucose 202 H (83-110) mg/dL Hemoglobin A1c 7.10 H (4.50-6.20) % Lactic Acid 2.2 H* (0.4-2.0) mmol/L Calcium (8.5-10.1) mg/dL Magnesium (1.8-2.4) mg/dl Total Bilirubin (0.2-1.0) mg/dL AST (15-37) U/L ALT (16-63) U/L Alkaline Phosphatase (46-116) U/L C-Reactive Protein (<1.0) mg/dL Total Protein (6.4-8.2) g/dl Albumin (3.4-5.0) g/dl Globulin gm/dL Albumin/Globulin Ratio (1-2) Blood Type Gel Antibody Screen Crossmatch 06/30/20 07/01/20 07/01/20 Range/Units 21:08 05:50 05:50 WBC 0.82 L* (4.23-9.07) K/mm3 RBC 2.57 L (4.63-6.08) M/mm3 Hgb 7.7 L (13.7-17.5) gm/dl Hct 22.7 L (40.1-51.0) % MCV 88.3 (79.0-92.2) fl MCH 30.0 (25.7-32.2) pg MCHC 33.9 (32.2-35.5) g/dl RDW Std Deviation 46.1 H (35.1-43.9) fL Plt Count 14 L* (163-337) K/mm3 MPV 10.1 (9.4-12.3) fl Neut % (Auto) 7.4 L (34.0-67.9) % Lymph % (Auto) 84.1 H (21.8-53.1) % [place] % (Auto) 4.9 L (5.3-12.2) % Eos % (Auto) 1.2 (0.8-7.0) Baso % (Auto) 1.2 (0.1-1.2) % Neut # (Auto) 0.06 L (1.78-5.38) K/mm3 Lymph # (Auto) 0.69 L (1.32-3.57) K/mm3 [place] # (Auto) 0.04 L (0.30-0.82) K/mm3 Eos # (Auto) 0.01 L (0.04-0.54) K/mm3 Baso # (Auto) 0.01 (0.01-0.08) K/mm3 Neutrophils % (Manual) (40-60) % Band Neutrophils % (0-10) % Lymphocytes % (Manual) (20-40) % Atypical Lymphs % % Monocytes % (Manual) (2-10) % Eosinophils % (Manual) (0.8-7.0) % Basophils % (Manual) (0.2-1.2) Manual Slide Review Abnormal smear Toxic Granulation Platelet Estimate Plt Morphology Comment Anisocytosis Macrocytosis RBC Morph Comment ESR (0-15) mm/hr Sodium (136-145) mEq/L Potassium (3.5-5.1) mEq/L Chloride (98-107) mEq/L Carbon Dioxide (21-32) mEq/L Anion Gap (5-15) BUN (7-18) mg/dL Creatinine (0.7-1.3) mg/dL Est Cr Clr Drug Dosing mL/min Estimated GFR (MDRD) (>60) mL/min BUN/Creatinine Ratio (14-18) Glucose (83-115) mg/dL POC Glucose (83-110) mg/dL Hemoglobin A1c (4.50-6.20) % Lactic Acid 2.0 (0.4-2.0) mmol/L Calcium (8.5-10.1) mg/dL Magnesium 1.8 (1.8-2.4) mg/dl Total Bilirubin (0.2-1.0) mg/dL AST (15-37) U/L ALT (16-63) U/L Alkaline Phosphatase (46-116) U/L C-Reactive Protein 13.4 H* (<1.0) mg/dL Total Protein (6.4-8.2) g/dl Albumin (3.4-5.0) g/dl Globulin gm/dL Albumin/Globulin Ratio (1-2) Blood Type Gel Antibody Screen Crossmatch Phil Results Last 24 Hours: Microbiology 06/30/20 15:11 Anaerobic Blood Culture - Preliminary Blood - Venous Gp Cocci In Pairs And Chains 06/30/20 18:50 Influenza Type A Antigen Screen - Final Nasopharyngeal Swab NEGATIVE INFLUENZA A VIRUS AG REFERENCE RANGE: NEGATIVE Influenza Type B Antigen Screen - Final NEGATIVE INFLUENZA B VIRUS AG REFERENCE RANGE: NEGATIVE Med Orders - Current: Current Medications Acetaminophen (Tylenol) 650 mg PO Q4H PRN PRN Reason: Pain (Mild 1-3)/fever Acetaminophen (Tylenol) 650 mg RECTAL Q4H PRN PRN Reason: Pain (mild 1-3) Hydrocodone Bitart/Acetaminophen ([place] 325-5 Mg) 1 tab PO Q4H PRN PRN Reason: Pain (moderate 4-6) Albuterol/Ipratropium (Duoneb 3.0-0.5 Mg/3 Ml) 3 ml NEB Q4H PRN PRN Reason: Shortness Of Breath/wheezing Hydralazine HCl (Apresoline) 20 mg IVPUSH Q4H PRN PRN Reason: Hypertension Hydromorphone HCl (Dilaudid) 0.25 mg IVPUSH Q2H PRN PRN Reason: Pain (severe 7-10) Promethazine HCl 12.5 mg/ (Sodium Chloride) 50.5 mls @ 100 mls/hr IV Q6H PRN PRN Reason: Nausea/Vomiting Acyclovir 730 mg/ Sodium (Chloride) 264.6 mls @ 130 mls/hr IV Q8H [facility] Last Admin: 07/01/20 02:18 Dose: 130 mls/hr Documented by: Micafungin Sodium 100 mg/ (Sodium Chloride) 100 mls @ 100 mls/hr IV Q24H [facility] Last Admin: 06/30/20 17:15 Dose: 100 mls/hr Documented by: Cefepime HCl 2 gm/ Premix 50 mls @ 100 mls/hr IV Q8H [facility] Ibuprofen (Motrin) 600 mg PO Q6H PRN PRN Reason: Pain (moderate 4-6) Last Admin: 06/30/20 21:40 Dose: 600 mg Documented by: Insulin Human Lispro (Humalog) [facility]; Protocol Last Admin: 07/01/20 06:30 Dose: Not Given Documented by: Ondansetron HCl (Zofran) 4 mg IV Q6H PRN PRN Reason: Nausea/Vomiting Polyethylene Glycol (Miralax) 17 gm PO DAILY PRN PRN Reason: Constipation Senna/Docusate Sodium (Senna Plus) 1 tab PO BID PRN PRN Reason: Constipation Zolpidem Tartrate (Ambien) 5 mg PO BEDTIME PRN PRN Reason: Sleep Discontinued Medications Sodium Chloride (Normal Saline) 1,000 mls @ 100 mls/hr IV ASDIRECTED [facility] Stop: 07/01/20 00:44 Last Admin: 06/30/20 21:40 Dose: 100 mls/hr Documented by: Cefepime HCl 1 gm/ Premix 50 mls @ 100 mls/hr IV Q12H [facility] Last Admin: 06/30/20 20:17 Dose: 100 mls/hr Documented by: Lactated Ringer's (Ringers, Lactated) 1,000 mls @ 999 mls/hr IV BOLUS PRIYA Stop: 07/02/20 17:15 Last Admin: 06/30/20 20:21 Dose: 999 mls/hr Documented by: Magnesium Sulfate (Magnesium Sulfate In Water Premix) 2 gm in 50 mls @ 25 mls/hr IV ONETIME ONE Stop: 06/30/20 19:59 Last Admin: 06/30/20 17:22 Dose: 25 mls/hr Documented by: - Exam Quality Assessment: No: Supplemental Oxygen General: Alert, Oriented, Cooperative, No Acute Distress, Other (Obese) HEENT: Pupils Equal, Pupils Reactive, EOMI, Mucous Membr. Moist/[place] Neck: Supple, Trachea Midline, No JVD, Other (short and thick) Lungs: Clear to Auscultation, Normal Respiratory Effort Cardiovascular: Regular Rate, Regular Rhythm GI/Abdominal Exam: Normal Bowel Sounds, Soft, Non-Tender, No Organomegaly, No Distention, No Abnormal Bruit, Other (obese) (Male) Exam: Deferred Back Exam: Normal Inspection, Decreased Range of Motion Extremities: Normal Inspection, Normal Range of Motion, Non-Tender, No Pedal Edema, Normal Capillary Refill Peripheral Pulses: 1+: Dorsalis Pedis (L), Dorsalis Pedis (R) Skin: Warm, Dry, Intact Neurological: No New Focal Deficit, Normal Gait Psy/Mental Status: Alert, Normal Affect, Normal Mood Sepsis Event Note - Evaluation Sepsis Screening Result: No Definite Risk - Focused Exam Vital Signs: Vital Signs Temp Pulse Resp BP Pulse Ox 07/01/20 04:19 36.4 C 63 16 134/97 H 95 06/30/20 23:18 36.8 C 49 L 16 143/58 H 94 L 06/30/20 21:54 110/78 06/30/20 21:46 129/73 06/30/20 20:38 36.7 C 69 20 152/76 H 95 - Problem List Review Problem List Initiated/Reviewed/Updated: Yes - My Orders Last 24 Hours: My Active Orders 06/30/20 Lunch Regular Diet [DIET] 06/30/20 14:38 Patient Status [ADT] Routine Height and Weight [RC] 06 Oxygen Therapy [RC] PRN Up ad Sherri [RC] BID VTE/DVT Education [RC] DAILY Vital Signs [RC] Q4HR Consult to Case Management/Cable [employer]er [employer] [CONS] Routine OT Evaluation and Treatment [CONS] Routine PT Evaluation and Treatment [CONS] Routine Respiratory Care Assess and Treatment [CONS] Routine CULTURE SPUTUM + SMEAR [RM] Stat Acetaminophen [TylenoL] 650 mg PO Q4H PRN Acetaminophen [Tylenol] 650 mg RECTAL Q4H PRN Acetaminophen/HYDROcodone [[place] 325-5 MG] 1 tab PO Q4H PRN Albuterol/Ipratropium [DuoNeb 3.0-0.5 MG/3 ML] 3 ml NEB Q4H PRN Docusate Sodium/Sennosides [Senna Plus] 1 tab PO BID PRN HYDROmorphone [Dilaudid] 0.25 mg IVPUSH Q2H PRN Ibuprofen [Motrin] 600 mg PO Q6H PRN Ondansetron [Zofran] 4 mg IV Q6H PRN Promethazine [Phenergan] 12.5 mg Sodium Chloride 0.9% [Normal Saline] 50 ml IV Q6H Zolpidem [Ambien] 5 mg PO BEDTIME PRN polyethylene glycoL 3350 [MiraLAX] 17 gm PO DAILY PRN Blood Culture x2 Reflex Set [OM.PC] Stat Resuscitation Status Routine 06/30/20 14:39 Cardiac Monitoring [RC] CONTINUOUS Intake and Output [RC] 04,16 Pulse Oximetry [RC] PRN 06/30/20 14:41 RT Aerosol Therapy [RC] ASDIRECTED 06/30/20 14:42 Sequential Compression Device [OM.PC] Per Unit Routine 06/30/20 14:43 Antiembolic Devices [RC] BID 06/30/20 15:00 VIRAL CULTURE, GENERAL Stat 06/30/20 15:05 CULTURE BLOOD [BC] Stat RED BLOOD CELLS LP [BBK] Routine TYPE AND SCREEN [BBK] Routine 06/30/20 15:10 CULTURE URINE [RM] Stat 06/30/20 15:11 CULTURE BLOOD [BC] Stat 06/30/20 16:01 Transfuse Red Blood Cells [COMM] Routine 06/30/20 16:15 CULTURE MRSA [RM] Stat 06/30/20 16:16 hydrALAZINE [Apresoline] 20 mg IVPUSH Q4H PRN 06/30/20 16:26 Consult 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] [CONS] Routine 06/30/20 16:27 Accu Check [Blood Glucose Check, Bedside] [RC] TIDAC 06/30/20 17:00 Insulin Lispro [HumaLOG] See Protocol SUBCUT TIDAC Micafungin [Mycamine] 100 mg Sodium Chloride 0.9% [Normal Saline] 100 ml IV Q24H 06/30/20 17:07 SCD [Sequential Compression Device] [OM.PC] Routine 06/30/20 18:00 Acyclovir [Zovirax] 730 mg Sodium Chloride 0.9% [Normal Saline] 250 ml IV Q8H 06/30/20 18:17 PROCALCITONIN [REF] Stat 06/30/20 19:01 Communication Order [RC] ASDIRECTED 07/01/20 04:35 METH-RESIST S.AUR,MRSA BY PCR [MOLEC] Routine 07/01/20 05:11 Chest 1V Frontal [CR] AM 07/01/20 08:00 Cefepime [Maxipime in D5W 2 GM/50 ML] 2 gm Premix Bag 1 bag IV Q8H 07/02/20 05:11 CBC WITH AUTO DIFF [HEME] AM CRP [C-REACTIVE PROTEIN] [CHEM] AM MAGNESIUM [CHEM] AM 07/03/20 05:11 CBC WITH AUTO DIFF [HEME] AM CRP [C-REACTIVE PROTEIN] [CHEM] AM MAGNESIUM [CHEM] AM 07/04/20 05:11 CBC WITH AUTO DIFF [HEME] AM CRP [C-REACTIVE PROTEIN] [CHEM] AM MAGNESIUM [CHEM] AM 07/05/20 05:11 CBC WITH AUTO DIFF [HEME] AM MAGNESIUM [CHEM] AM 07/06/20 05:11 CBC WITH AUTO DIFF [HEME] AM MAGNESIUM [CHEM] AM 07/07/20 05:11 CBC WITH AUTO DIFF [HEME] AM MAGNESIUM [CHEM] AM - Plan Plan:: This is a 74 yo elderly white male with past medical hx/o COVID 19 Infection and Aplastic Anemia S/p BM biopsy 2 weeks currently on chemotherapy with Anti Thymocyte Globulin, Cyclosporines, Methylprednisolone as well Filgrastin (Zarxio), and Obesity who comes to us as a direct admit from the clinic for further management for Severe Neutropenia and Community Acquired Pneumonia diagnosed at the clinic today while he was being seen for routine follow up labs . Assessment: Acute: Sepsis secondary to community acquired pneumonia Bacteremia secondary to GP in Pairs and Chains Severe neutropenia with ANC of 0 Pancytopenia: Moderate anemia, Severe neutropenia, Severe thrombocytopenia and Relative lymphocytosis via BM * Hgb 7 grams yesterday and received 2 units of PRBC at the clinic; Hgb today is 7.7 grams * Platelet 1K yesterday and received 1 unit of Platelet at the clinic; Platelet today is 14K * Cut off: infuse blood if symptomatic and Platelet if < 10K or < 20K with active bleeding/fever per Oncology provider Aplastic Anemia currently on chemotherapy: cyclosporin, methylprednisolone, and zarxio S/p BM Biopsy : * Hypocellular marrow with markedly decreased trilineage hematopoiesis. No increased blasts. Relative lymphohistiocytic hyperplasia with plasmacytosis. * Deemed ineligible for transplant from note obtained at the clinic Right Middle Lobe PNA Lactic Acidosis, resolved * LA of 4.0-->now 2.0 * Likely from underlying sepsis * Volume resuscitation Hx/o Covid -19 Infection in Nov Hyperglycemia * Due to new onset of diabetes * Carries no hx/o Diabetes or Glucose Intolerance * However he has been on steroid * A1C of 7.10 * Continue Lantus 10 units subQ BID and Accu-check TIDAC with ISS * Diabetic education Hypocalcemia * Non corrected Ca level of 8.4 * Will monitor Hypomagnesemia,resolved * Mg of 1.6-->1.8 * Likely due to inadequate intake * Will replete Mildly Elevated T. Bilirubin of 1.3 Elevated CRP of 11.6-->13.4 Hypoalbuminemia with Albumin of 2.5 Class III Obese Chronic: Aplastic Anemia, S/p BM Biopsy and Morbid Obesity Plan: Continue current treatment. Routine AM Labs. MRSA and Viral Panel pending. Continue IV Cefepime 1 gram Q8H, Micafungin 100 mg daily, Acyclovir 730 mg IV Q8H for empiric treatment. Dietary consult for weight management. Isolation protocol. DVT/GI prophylaxis: SCDs due to low platelet level and H2B. Resume some home medications once verified. PT/OT when appropriate. Continue to avoid ASA and Anticoagulations. Resume Home Meds once verified. Code status is full. Prognosis is guarded-good.
[2020-07-01] MEDS: Cefepime 2 GM in Premix Bag 1 BAG IV SCH ×2 (08:16→15:09)
--- NOTE | 2020-07-01 09:09 | CR ---
Chest: Portable view of the chest was obtained. Comparison: Prior chest x-ray of 06/30/20. Parenchymal density is noted within the right lung base. This is slightly more dense but otherwise appears unchanged in size. Lungs otherwise are clear. Heart size and mediastinum are normal. Bony structures are grossly intact. Impression: 1. Increased density within previous right lower lobe pneumonia. No change in size. 2. No other acute abnormality is appreciated. Diagnostic code #3
[2020-07-01] MEDS: predniSONE 5 MG Tab PO SCH (09:14)
[2020-07-01] MEDS: predniSONE 20 MG Tab PO SCH (09:14)
[2020-07-01] MEDS: Acetaminophen 325 MG Tab PO PRN (14:12)
[2020-07-01] MEDS ORDERED: Sodium Chloride 0.9% 250 ML IV SCH (17:00)
[2020-07-01] MEDS: Insulin Glarg,Human.Rec.Analog 100 Unit/ML SUBCUT SCH (17:08)
[2020-07-01] MEDS: Micafungin 100 MG in Sodium Chloride 0.9% 100 ML IV SCH (17:09)
[2020-07-01] MEDS ORDERED: CYCLOSPORINE PO SCH (21:00)
[2020-07-01] MEDS: Doxazosin 4 MG Tab PO SCH (21:08)
[2020-07-01] MEDS: Carvedilol 12.5 MG Tab PO SCH (21:21)
[2020-07-01] MEDS: hydrALAZINE 20 MG/ML SDV IVPUSH PRN (21:39)
[2020-07-01 21:42] LABS: BORDETELLA PARAPERT IS1001 Not Detected (Not Detected)
[2020-07-02] MEDS: Acetaminophen 325 MG Tab PO PRN (00:06)
[2020-07-02] MEDS: Cefepime 2 GM in Premix Bag 1 BAG IV SCH ×3 (00:07→16:05)
[2020-07-02 07:40] LABS: VITAMIN D,25-HYDROXY 40.5 ng/ml (30.0-100.0)
--- NOTE | 2020-07-02 07:54 | PCM.PN ---
- General Info Date of Service: 07/02/20 Admission Dx/Problem (Free Text): Severe Neutropenia Subjective Update: No overnight or acute issues. He feels a lot better this morning. He has no fever and his WBC has gone up to 1.21. His Hgb has improve to 8.1 grams but his platelet drops to 12K. His glucose overall is well controlled. His viral panel to include MRSA test are both negative. His blood culture is positive for GNR and GP in In Pairs and Chains. Functional Status: Reports: Pain Controlled, Tolerating Diet, Ambulating, Urinating - Review of Systems General: Denies: Fever, Weakness, Fatigue, Malaise, Chills HEENT: Denies: Headaches, Sinus Congestion, Sore Throat, Rhinitis Pulmonary: Denies: Shortness of Breath, Pleuritic Chest Pain, Cough, Sputum Cardiovascular: Denies: Chest Pain, Dyspnea on Exertion, Lightheadedness Gastrointestinal: Denies: Abdominal Pain, Constipation, Decreased Appetite, Diarrhea, Nausea, Vomiting Genitourinary: Denies: Dysuria, Burning Musculoskeletal: Denies: Joint Pain Skin: Denies: Cyanosis, Bruising, Pruritis, Rash Neurological: Denies: Confusion, Dizziness, Weakness, Gait Disturbance Psychiatric: Denies: Depression, Anxiety - Patient Data Vitals - Most Recent: Last Vital Signs Temp 36.6 C 07/02/20 03:55 Pulse 66 07/02/20 03:54 Resp 18 07/02/20 03:54 BP 136/89 07/02/20 03:54 Pulse Ox 94 L 07/02/20 03:54 Weight - Most Recent: 129.682 kg I&O - Last 24 Hours: Intake & Output 07/01/20 07/02/20 07/02/20 22:59 06:59 14:59 Intake Total 1310 1000 Output Total 750 2050 Balance 560 -1050 Lab Results Last 24 Hours: Laboratory Results - last 24 hr 06/30/20 06/30/20 06/30/20 Range/Units 15:05 15:10 18:17 WBC (4.23-9.07) K/mm3 RBC (4.63-6.08) M/mm3 Hgb (13.7-17.5) gm/dl Hct (40.1-51.0) % MCV (79.0-92.2) fl MCH (25.7-32.2) pg MCHC (32.2-35.5) g/dl RDW Std Deviation (35.1-43.9) fL Plt Count (163-337) K/mm3 MPV (9.4-12.3) fl Neut % (Auto) (34.0-67.9) % Lymph % (Auto) (21.8-53.1) % [place] % (Auto) (5.3-12.2) % Eos % (Auto) (0.8-7.0) Baso % (Auto) (0.1-1.2) % Neut # (Auto) (1.78-5.38) K/mm3 Lymph # (Auto) (1.32-3.57) K/mm3 [place] # (Auto) (0.30-0.82) K/mm3 Eos # (Auto) (0.04-0.54) K/mm3 Baso # (Auto) (0.01-0.08) K/mm3 Manual Slide Review Sodium (136-145) mEq/L Potassium (3.5-5.1) mEq/L Chloride (98-107) mEq/L Carbon Dioxide (21-32) mEq/L Anion Gap (5-15) BUN (7-18) mg/dL Creatinine (0.7-1.3) mg/dL Est Cr Clr Drug Dosing mL/min Estimated GFR (MDRD) (>60) mL/min BUN/Creatinine Ratio (14-18) Glucose (83-115) mg/dL POC Glucose (83-110) mg/dL Calcium (8.5-10.1) mg/dL Magnesium (1.8-2.4) mg/dl C-Reactive Protein (<1.0) mg/dL Triglycerides (<150) mg/dL Cholesterol (<200) mg/dL LDL Cholesterol Direct (<100) mg/dL HDL Cholesterol (40-59) mg/dL Vitamin D 25-Hydroxy (30.0-100.0) ng/ml Procalcitonin 0.51 H ng/mL Urine Color (Yellow) Urine Appearance (Clear) Urine pH (5.0-8.0) Ur Specific [place] (1.005-1.030) Urine Protein (Negative) Urine Glucose (UA) (Negative) Urine Ketones (Negative) Urine Occult Blood (Negative) Urine Nitrite (Negative) Urine Bilirubin (Negative) Urine Urobilinogen (0.2-1.0) Ur Leukocyte Esterase (Negative) Urine RBC (0-5) /hpf Urine WBC (0-5) /hpf Ur Squamous Epith Cells (0-5) /hpf Urine Bacteria (FEW) /hpf Urine Mucus (FEW) /hpf Ur Random Creatinine 143.5 H (30.0-125.0) mg/dL Ur Random Microalbumin 114.1 H (1.3-20.0) mg/L Microalb/Creat Ratio 79.5 H (0-30) mg/g Adenovirus (PCR) (Not Detected) B. pertussis DNA (PCR) (Not Detected) B.parapertussis DNA PCR (Not Detected) C. pneumoniae DNA (PCR) (Not Detected) Coronavirus OC43 (PCR) (Not Detected) Coronavirus HKU1 (PCR) (Not Detected) Coronavirus 229E (PCR) (Not Detected) Coronavirus NL63 (PCR) (Not Detected) Human Metapneumovir PCR (Not Detected) Influenza A (RT-PCR) (Not Detected) Influenza B (RT-PCR) (Not Detected) M. pneumoniae (PCR) (Not Detected) Parainfluenza 1 (PCR) (Not Detected) Parainfluenza 2 (PCR) (Not Detected) Parainfluenza 3 (PCR) (Not Detected) Parainfluenza 4 (PCR) (Not Detected) RSV (PCR) (Not Detected) Entero/Rhino (PCR) (Not Detected) SARS-CoV-2 (PCR) (Not Detected) MRSA (PCR) Blood Type B POSITIVE Gel Antibody Screen Negative Crossmatch See Detail 07/01/20 07/01/20 07/01/20 Range/Units 04:35 06:07 08:15 WBC (4.23-9.07) K/mm3 RBC (4.63-6.08) M/mm3 Hgb (13.7-17.5) gm/dl Hct (40.1-51.0) % MCV (79.0-92.2) fl MCH (25.7-32.2) pg MCHC (32.2-35.5) g/dl RDW Std Deviation (35.1-43.9) fL Plt Count (163-337) K/mm3 MPV (9.4-12.3) fl Neut % (Auto) (34.0-67.9) % Lymph % (Auto) (21.8-53.1) % [place] % (Auto) (5.3-12.2) % Eos % (Auto) (0.8-7.0) Baso % (Auto) (0.1-1.2) % Neut # (Auto) (1.78-5.38) K/mm3 Lymph # (Auto) (1.32-3.57) K/mm3 [place] # (Auto) (0.30-0.82) K/mm3 Eos # (Auto) (0.04-0.54) K/mm3 Baso # (Auto) (0.01-0.08) K/mm3 Manual Slide Review Sodium (136-145) mEq/L Potassium (3.5-5.1) mEq/L Chloride (98-107) mEq/L Carbon Dioxide (21-32) mEq/L Anion Gap (5-15) BUN (7-18) mg/dL Creatinine (0.7-1.3) mg/dL Est Cr Clr Drug Dosing mL/min Estimated GFR (MDRD) (>60) mL/min BUN/Creatinine Ratio (14-18) Glucose (83-115) mg/dL POC Glucose 108 (83-110) mg/dL Calcium (8.5-10.1) mg/dL Magnesium (1.8-2.4) mg/dl C-Reactive Protein (<1.0) mg/dL Triglycerides (<150) mg/dL Cholesterol (<200) mg/dL LDL Cholesterol Direct (<100) mg/dL HDL Cholesterol (40-59) mg/dL Vitamin D 25-Hydroxy (30.0-100.0) ng/ml Procalcitonin ng/mL Urine Color Yellow (Yellow) Urine Appearance Clear (Clear) Urine pH 6.0 (5.0-8.0) Ur Specific [employer] [place] > or = 1.030 (1.005-1.030) Urine Protein 2+ H (Negative) Urine Glucose (UA) 1+ H (Negative) Urine Ketones Negative (Negative) Urine Occult Blood 3+ H (Negative) Urine Nitrite Negative (Negative) Urine Bilirubin Negative (Negative) Urine Urobilinogen 0.2 (0.2-1.0) Ur Leukocyte Esterase Negative (Negative) Urine RBC 10-20 H (0-5) /hpf Urine WBC 0-5 (0-5) /hpf Ur Squamous Epith Cells 0-5 (0-5) /hpf Urine Bacteria Not seen (FEW) /hpf Urine Mucus Not seen (FEW) /hpf Ur Random Creatinine (30.0-125.0) mg/dL Ur Random Microalbumin (1.3-20.0) mg/L Microalb/Creat Ratio (0-30) mg/g Adenovirus (PCR) (Not Detected) B. pertussis DNA (PCR) (Not Detected) B.parapertussis DNA PCR (Not Detected) C. pneumoniae DNA (PCR) (Not Detected) Coronavirus OC43 (PCR) (Not Detected) Coronavirus HKU1 (PCR) (Not Detected) Coronavirus 229E (PCR) (Not Detected) Coronavirus NL63 (PCR) (Not Detected) Human Metapneumovir PCR (Not Detected) Influenza A (RT-PCR) (Not Detected) Influenza B (RT-PCR) (Not Detected) M. pneumoniae (PCR) (Not Detected) Parainfluenza 1 (PCR) (Not Detected) Parainfluenza 2 (PCR) (Not Detected) Parainfluenza 3 (PCR) (Not Detected) Parainfluenza 4 (PCR) (Not Detected) RSV (PCR) (Not Detected) Entero/Rhino (PCR) (Not Detected) SARS-CoV-2 (PCR) (Not Detected) MRSA (PCR) Negative Blood Type Gel Antibody Screen Crossmatch 07/01/20 07/01/20 07/01/20 Range/Units 08:30 10:57 16:47 WBC (4.23-9.07) K/mm3 RBC (4.63-6.08) M/mm3 Hgb (13.7-17.5) gm/dl Hct (40.1-51.0) % MCV (79.0-92.2) fl MCH (25.7-32.2) pg MCHC (32.2-35.5) g/dl RDW Std Deviation (35.1-43.9) fL Plt Count (163-337) K/mm3 MPV (9.4-12.3) fl Neut % (Auto) (34.0-67.9) % Lymph % (Auto) (21.8-53.1) % [place] % (Auto) (5.3-12.2) % Eos % (Auto) (0.8-7.0) Baso % (Auto) (0.1-1.2) % Neut # (Auto) (1.78-5.38) K/mm3 Lymph # (Auto) (1.32-3.57) K/mm3 [place] # (Auto) (0.30-0.82) K/mm3 Eos # (Auto) (0.04-0.54) K/mm3 Baso # (Auto) (0.01-0.08) K/mm3 Manual Slide Review Sodium (136-145) mEq/L Potassium (3.5-5.1) mEq/L Chloride (98-107) mEq/L Carbon Dioxide (21-32) mEq/L Anion Gap (5-15) BUN (7-18) mg/dL Creatinine (0.7-1.3) mg/dL Est Cr Clr Drug Dosing mL/min Estimated GFR (MDRD) (>60) mL/min BUN/Creatinine Ratio (14-18) Glucose (83-115) mg/dL POC Glucose 150 H 207 H (83-110) mg/dL Calcium (8.5-10.1) mg/dL Magnesium (1.8-2.4) mg/dl C-Reactive Protein (<1.0) mg/dL Triglycerides (<150) mg/dL Cholesterol (<200) mg/dL LDL Cholesterol Direct (<100) mg/dL HDL Cholesterol (40-59) mg/dL Vitamin D 25-Hydroxy (30.0-100.0) ng/ml Procalcitonin ng/mL Urine Color (Yellow) Urine Appearance (Clear) Urine pH (5.0-8.0) Ur Specific [employer] [place] (1.005-1.030) Urine Protein (Negative) Urine Glucose (UA) (Negative) Urine Ketones (Negative) Urine Occult Blood (Negative) Urine Nitrite (Negative) Urine Bilirubin (Negative) Urine Urobilinogen (0.2-1.0) Ur Leukocyte Esterase (Negative) Urine RBC (0-5) /hpf Urine WBC (0-5) /hpf Ur Squamous Epith Cells (0-5) /hpf Urine Bacteria (FEW) /hpf Urine Mucus (FEW) /hpf Ur Random Creatinine (30.0-125.0) mg/dL Ur Random Microalbumin (1.3-20.0) mg/L Microalb/Creat Ratio (0-30) mg/g Adenovirus (PCR) Not detected (Not Detected) B. pertussis DNA (PCR) Not detected (Not Detected) B.parapertussis DNA PCR Not detected (Not Detected) C. pneumoniae DNA (PCR) Not detected (Not Detected) Coronavirus OC43 (PCR) Not detected (Not Detected) Coronavirus HKU1 (PCR) Not detected (Not Detected) Coronavirus 229E (PCR) Not detected (Not Detected) Coronavirus NL63 (PCR) Not detected (Not Detected) Human Metapneumovir PCR Not detected (Not Detected) Influenza A (RT-PCR) Not detected (Not Detected) Influenza B (RT-PCR) Not detected (Not Detected) M. pneumoniae (PCR) Not detected (Not Detected) Parainfluenza 1 (PCR) Not detected (Not Detected) Parainfluenza 2 (PCR) Not detected (Not Detected) Parainfluenza 3 (PCR) Not detected (Not Detected) Parainfluenza 4 (PCR) Not detected (Not Detected) RSV (PCR) Not detected (Not Detected) Entero/Rhino (PCR) Not detected (Not Detected) SARS-CoV-2 (PCR) Not detected (Not Detected) MRSA (PCR) Blood Type Gel Antibody Screen Crossmatch 07/02/20 07/02/20 07/02/20 Range/Units 05:28 05:28 06:28 WBC 1.21 L* (4.23-9.07) K/mm3 RBC 2.61 L (4.63-6.08) M/mm3 Hgb 8.1 L (13.7-17.5) gm/dl Hct 22.7 L (40.1-51.0) % MCV 87.0 (79.0-92.2) fl MCH 31.0 (25.7-32.2) pg MCHC 35.7 H (32.2-35.5) g/dl RDW Std Deviation 44.5 H (35.1-43.9) fL Plt Count 12 L* (163-337) K/mm3 MPV 10.5 (9.4-12.3) fl Neut % (Auto) 2.4 L (34.0-67.9) % Lymph % (Auto) 89.3 H (21.8-53.1) % [place] % (Auto) 4.1 L (5.3-12.2) % Eos % (Auto) 0.8 (0.8-7.0) Baso % (Auto) 1.7 H (0.1-1.2) % Neut # (Auto) 0.03 L (1.78-5.38) K/mm3 Lymph # (Auto) 1.08 L (1.32-3.57) K/mm3 [place] # (Auto) 0.05 L (0.30-0.82) K/mm3 Eos # (Auto) 0.01 L (0.04-0.54) K/mm3 Baso # (Auto) 0.02 (0.01-0.08) K/mm3 Manual Slide Review Abnormal smear Sodium 137 (136-145) mEq/L Potassium 3.8 (3.5-5.1) mEq/L Chloride 102 (98-107) mEq/L Carbon Dioxide 26 (21-32) mEq/L Anion Gap 12.8 (5-15) BUN 31 H (7-18) mg/dL Creatinine 0.9 (0.7-1.3) mg/dL Est Cr Clr Drug Dosing 75.48 mL/min Estimated GFR (MDRD) > 60 (>60) mL/min BUN/Creatinine Ratio 34.4 H (14-18) Glucose 132 H (83-115) mg/dL POC Glucose 123 H (83-110) mg/dL Calcium 8.1 L (8.5-10.1) mg/dL Magnesium 1.5 L (1.8-2.4) mg/dl C-Reactive Protein 12.8 H* (<1.0) mg/dL Triglycerides 169 H (<150) mg/dL Cholesterol 166 (<200) mg/dL LDL Cholesterol Direct 94 (<100) mg/dL HDL Cholesterol 20.0 L (40-59) mg/dL Vitamin D 25-Hydroxy 40.5 (30.0-100.0) ng/ml Procalcitonin ng/mL Urine Color (Yellow) Urine Appearance (Clear) Urine pH (5.0-8.0) Ur Specific [employer] [place] (1.005-1.030) Urine Protein (Negative) Urine Glucose (UA) (Negative) Urine Ketones (Negative) Urine Occult Blood (Negative) Urine Nitrite (Negative) Urine Bilirubin (Negative) Urine Urobilinogen (0.2-1.0) Ur Leukocyte Esterase (Negative) Urine RBC (0-5) /hpf Urine WBC (0-5) /hpf Ur Squamous Epith Cells (0-5) /hpf Urine Bacteria (FEW) /hpf Urine Mucus (FEW) /hpf Ur Random Creatinine (30.0-125.0) mg/dL Ur Random Microalbumin (1.3-20.0) mg/L Microalb/Creat Ratio (0-30) mg/g Adenovirus (PCR) (Not Detected) B. pertussis DNA (PCR) (Not Detected) B.parapertussis DNA PCR (Not Detected) C. pneumoniae DNA (PCR) (Not Detected) Coronavirus OC43 (PCR) (Not Detected) Coronavirus HKU1 (PCR) (Not Detected) Coronavirus 229E (PCR) (Not Detected) Coronavirus NL63 (PCR) (Not Detected) Human Metapneumovir PCR (Not Detected) Influenza A (RT-PCR) (Not Detected) Influenza B (RT-PCR) (Not Detected) M. pneumoniae (PCR) (Not Detected) Parainfluenza 1 (PCR) (Not Detected) Parainfluenza 2 (PCR) (Not Detected) Parainfluenza 3 (PCR) (Not Detected) Parainfluenza 4 (PCR) (Not Detected) RSV (PCR) (Not Detected) Entero/Rhino (PCR) (Not Detected) SARS-CoV-2 (PCR) (Not Detected) MRSA (PCR) Blood Type Gel Antibody Screen Crossmatch Phil Results Last 24 Hours: Microbiology 06/30/20 15:05 Aerobic Blood Culture - Preliminary Blood NO GROWTH AFTER 1 DAY Anaerobic Blood Culture - Preliminary NO GROWTH AFTER 1 DAY 06/30/20 15:11 Aerobic Blood Culture - Preliminary Blood - Venous Gram Negative Rods Anaerobic Blood Culture - Preliminary Gp Cocci In Pairs And Chains Med Orders - Current: Current Medications Acetaminophen (Tylenol) 650 mg PO Q4H PRN PRN Reason: Pain (Mild 1-3)/fever Last Admin: 07/02/20 00:06 Dose: 650 mg Documented by: Acetaminophen (Tylenol) 650 mg RECTAL Q4H PRN PRN Reason: Pain (mild 1-3) Hydrocodone Bitart/Acetaminophen ([place] 325-5 Mg) 1 tab PO Q4H PRN PRN Reason: Pain (moderate 4-6) Albuterol/Ipratropium (Duoneb 3.0-0.5 Mg/3 Ml) 3 ml NEB Q4H PRN PRN Reason: Shortness Of Breath/wheezing Amlodipine Besylate (Norvasc) 5 mg PO DAILY [facility] Carvedilol (Coreg) 25 mg PO BID [facility] Last Admin: 07/01/20 21:21 Dose: Not Given Documented by: Cyclosporine (Modified) (Neoral) 600 mg PO DAILY [facility] Last Admin: 07/01/20 09:13 Dose: 600 mg Documented by: Cyclosporine (Modified) (Neoral) 700 mg PO BEDTIME [facility] Last Admin: 07/01/20 21:34 Dose: 700 mg Documented by: Doxazosin Mesylate (Cardura) 4 mg PO BEDTIME [facility] Last Admin: 07/01/20 21:08 Dose: 4 mg Documented by: Famotidine (Pepcid) 20 mg PO DAILY [facility] Hydralazine HCl (Apresoline) 20 mg IVPUSH Q4H PRN PRN Reason: Hypertension Last Admin: 07/01/20 21:39 Dose: 20 mg Documented by: Hydromorphone HCl (Dilaudid) 0.25 mg IVPUSH Q2H PRN PRN Reason: Pain (severe 7-10) Promethazine HCl 12.5 mg/ (Sodium Chloride) 50.5 mls @ 100 mls/hr IV Q6H PRN PRN Reason: Nausea/Vomiting Acyclovir 730 mg/ Sodium (Chloride) 264.6 mls @ 130 mls/hr IV Q8H [facility] Last Admin: 07/02/20 01:15 Dose: 130 mls/hr Documented by: Micafungin Sodium 100 mg/ (Sodium Chloride) 100 mls @ 100 mls/hr IV Q24H [facility] Last Admin: 07/01/20 17:09 Dose: 100 mls/hr Documented by: Cefepime HCl 2 gm/ Premix 50 mls @ 100 mls/hr IV Q8H [facility] Last Admin: 07/02/20 00:07 Dose: 100 mls/hr Documented by: Magnesium Sulfate/Dextrose 1 (gm/ Premix) 100 mls @ 100 mls/hr IV ONETIME ONE Stop: 07/02/20 08:06 Ibuprofen (Motrin) 600 mg PO Q6H PRN PRN Reason: Pain (moderate 4-6) Last Admin: 06/30/20 21:40 Dose: 600 mg Documented by: Insulin Glargine (Lantus) 10 unit SUBCUT BID@0700,1700 [facility] Insulin Human Lispro (Humalog) 0 unit SUBCUT TIDAC [facility]; Protocol Last Admin: 07/01/20 17:09 Dose: 4 units Documented by: Losartan Potassium (Cozaar) 50 mg PO DAILY [facility] Ondansetron HCl (Zofran) 4 mg IV Q6H PRN PRN Reason: Nausea/Vomiting Pitavastatin Calcium ([Livalo] 1 Mg) 0 each PO DAILY [facility] Polyethylene Glycol (Miralax) 17 gm PO DAILY PRN PRN Reason: Constipation Prednisone (Prednisone) 120 mg PO DAILY [facility] Last Admin: 07/01/20 09:14 Dose: 120 mg Documented by: Prednisone (Prednisone) 5 mg PO DAILY [facility] Last Admin: 07/01/20 09:14 Dose: 5 mg Documented by: Senna/Docusate Sodium (Senna Plus) 1 tab PO BID PRN PRN Reason: Constipation Tbo-Filgrastim (Granix) 650 mcg SQ DAILY [facility] Last Admin: 07/01/20 10:08 Dose: 650 mcg Documented by: Zolpidem Tartrate (Ambien) 5 mg PO BEDTIME PRN PRN Reason: Sleep Discontinued Medications Sodium Chloride (Normal Saline) 1,000 mls @ 100 mls/hr IV ASDIRECTED [facility] Stop: 07/01/20 00:44 Last Admin: 06/30/20 21:40 Dose: 100 mls/hr Documented by: Cefepime HCl 1 gm/ Premix 50 mls @ 100 mls/hr IV Q12H [facility] Last Admin: 06/30/20 20:17 Dose: 100 mls/hr Documented by: Lactated Ringer's (Ringers, Lactated) 1,000 mls @ 999 mls/hr IV BOLUS [facility] Stop: 07/02/20 17:15 Last Admin: 06/30/20 20:21 Dose: 999 mls/hr Documented by: Magnesium Sulfate (Magnesium Sulfate In Water Premix) 2 gm in 50 mls @ 25 mls/hr IV ONETIME ONE Stop: 06/30/20 19:59 Last Admin: 06/30/20 17:22 Dose: 25 mls/hr Documented by: Sodium Chloride (Normal Saline) 250 mls @ 50 mls/hr IV ASDIRECTED [facility] Insulin Glargine (Lantus) 10 unit SUBCUT BIDAC [facility] Last Admin: 07/01/20 17:08 Dose: 10 unit Documented by: Non-Formulary Medication (Cyclosporine [Cyclosporine]) 600 mg PO DAILY [facility] Non-Formulary Medication (Cyclosporine [Cyclosporine]) 700 mg PO BEDTIME [facility] Non-Formulary Medication (Prednisone [Prednisone]) 125 mg PO DAILY [facility] - Exam Quality Assessment: DVT Prophylaxis. No: Supplemental Oxygen, Urine Catheter General: Alert, Oriented, Cooperative, No Acute Distress, Other (Obese) HEENT: Pupils Equal, Pupils Reactive, EOMI, Mucous Membr. Moist/[place] Neck: Supple, Trachea Midline Lungs: Clear to Auscultation, Normal Respiratory Effort Cardiovascular: Regular Rate, Regular Rhythm GI/Abdominal Exam: Normal Bowel Sounds, Soft, Non-Tender, No Organomegaly, No Distention, No Abnormal Bruit, Other (Obese) (Male) Exam: Deferred Back Exam: Normal Inspection, Decreased Range of Motion Extremities: Normal Inspection, Normal Range of Motion, Non-Tender, No Pedal Edema, Normal Capillary Refill Peripheral Pulses: 2+: Dorsalis Pedis (L), Dorsalis Pedis (R) Skin: Warm, Dry, Intact Neurological: No New Focal Deficit, Normal Gait Psy/Mental Status: Alert, Normal Affect, Normal Mood Sepsis Event Note - Evaluation Sepsis Screening Result: No Definite Risk - Focused Exam Vital Signs: Vital Signs Temp Temp Pulse Resp BP Pulse Ox 07/02/20 03:55 36.6 C 07/02/20 03:54 97.7 C H 66 18 136/89 94 L 07/02/20 00:35 36.7 C 63 20 114/66 96 07/01/20 22:53 135/80 07/01/20 21:08 172/86 H 07/01/20 20:49 172/86 H 07/01/20 20:47 37.0 C 65 20 171/92 H 95 - Problem List Review Problem List Initiated/Reviewed/Updated: Yes - My Orders Last 24 Hours: My Active Orders 07/01/20 07:46 Isolation [COMM] Routine 07/01/20 08:00 Cefepime [Maxipime in D5W 2 GM/50 ML] 2 gm Premix Bag 1 bag IV Q8H 07/01/20 09:00 cycloSPORINE, Modified [Neoral] 600 mg PO DAILY predniSONE 120 mg PO DAILY predniSONE 5 mg PO DAILY 07/01/20 10:00 Tbo-Filgrastim [Granix] 650 mcg SQ DAILY 07/01/20 10:26 Flutter Valve Therapy [RT Chest Physiotherapy] [RC] ASDIRECTED Incentive Spirometry [RT Incentive Spirometry] [RC] ASDIRECTED 07/01/20 Dinner Consistent Carbohydrate Diet [DIET] 07/01/20 21:00 Doxazosin [Cardura] 4 mg PO BEDTIME carvediloL [Coreg] 25 mg PO BID cycloSPORINE, Modified [Neoral] 700 mg PO BEDTIME 07/02/20 07:00 Insulin Glarg,Human.Rec.Analog [LantUS] 10 unit SUBCUT BID@0700,1700 07/02/20 07:07 Magnesium Sulfate/D5W [Magnesium Sulfate in D5W 100 Premix] 1 gm Premix Bag 1 bag IV ONETIME 07/02/20 09:00 Famotidine [Pepcid] 20 mg PO DAILY Losartan [Cozaar] 50 mg PO DAILY Patient's Own Medication [Ptom] 0 each PO DAILY amLODIPine [Norvasc] 5 mg PO DAILY 07/03/20 05:11 BMP [BASIC METABOLIC PANEL,BMP] [CHEM] AM CBC WITH AUTO DIFF [HEME] AM CRP [C-REACTIVE PROTEIN] [CHEM] AM MAGNESIUM [CHEM] AM 07/04/20 05:11 BMP [BASIC METABOLIC PANEL,BMP] [CHEM] AM CBC WITH AUTO DIFF [HEME] AM CRP [C-REACTIVE PROTEIN] [CHEM] AM MAGNESIUM [CHEM] AM 07/05/20 05:11 BMP [BASIC METABOLIC PANEL,BMP] [CHEM] AM CBC WITH AUTO DIFF [HEME] AM MAGNESIUM [CHEM] AM 07/06/20 05:11 BMP [BASIC METABOLIC PANEL,BMP] [CHEM] AM CBC WITH AUTO DIFF [HEME] AM MAGNESIUM [CHEM] AM 07/07/20 05:11 BMP [BASIC METABOLIC PANEL,BMP] [CHEM] AM CBC WITH AUTO DIFF [HEME] AM MAGNESIUM [CHEM] AM - Plan Plan:: This is a 74 yo elderly white male with past medical hx/o COVID 19 Infection and Aplastic Anemia S/p BM biopsy 2 weeks currently on chemotherapy with Anti Thymocyte Globulin, Cyclosporines, Methylprednisolone as well Filgrastin (Zarxio), and Obesity who comes to us as a direct admit from the clinic for further management for Severe Neutropenia and Community Acquired Pneumonia diagnosed at the clinic today while he was being seen for routine follow up labs. Assessment: Acute: Sepsis secondary to community acquired pneumonia Bacteremia secondary to GP in Pairs and Chains as well as GNR, awaiting further info on organisms Severe neutropenia with ANC of 0, improving Pancytopenia: Moderate anemia, Severe neutropenia, Severe thrombocytopenia and Relative lymphocytosis via BM * Hgb 7 grams yesterday and received 2 units of PRBC at the clinic; Hgb today is 7.7 grams * Platelet 1K yesterday and received 1 unit of Platelet at the clinic; Platelet today is 14K * Cut off: infuse blood if symptomatic and Platelet if < 10K or < 20K with active bleeding/fever per Oncology provider Aplastic Anemia currently on chemotherapy: cyclosporin, steroid, and zarxio (wi ll continue regimen) S/p BM Biopsy : * Hypocellular marrow with markedly decreased trilineage hematopoiesis. No increased blasts. Relative lymphohistiocytic hyperplasia with plasmacytosis. * Deemed ineligible for transplant from note obtained at the clinic Right Middle Lobe PNA Lactic Acidosis, resolved * LA of 4.0-->now 2.0 * Likely from underlying sepsis * Volume resuscitation Hx/o Covid -19 Infection in Nov Hyperglycemia, improved * Due to new onset of diabetes * Carries no hx/o Diabetes or Glucose Intolerance * However he has been on steroid * A1C of 7.10 * Continue Lantus 10 units subQ BID and Accu-check TIDAC with ISS * Diabetic education Hypocalcemia * Non corrected Ca level of 8.4-->8.1 * Will monitor Hypomagnesemia,resolved * Mg of 1.6-->1.8-->1.5 * Likely due to inadequate intake * Continue to replete Mildly Elevated T. Bilirubin of 1.3 Elevated CRP of 11.6-->13.4-->12.8 Hypoalbuminemia with Albumin of 2.5 Class III Obese Chronic: Aplastic Anemia, S/p BM Biopsy and Morbid Obesity Plan: Continue current treatment. Routine AM Labs. MRSA and Viral Panel were both negative. Continue IV Cefepime 1 gram Q8H but will discontinue Micafungin 100 mg daily and Acyclovir 730 mg IV Q8H for empiric treatment. Dietary consult for weight management. Isolation protocol. DVT/GI prophylaxis: SCDs due to low platelet level and H2B. PT/OT when appropriate. Continue to avoid ASA and Anticoagulations. Resume Home Meds once verified. Will repeat blood culture in AM. Code status is full. Prognosis is good.
[2020-07-02] MEDS: Insulin Glarg,Human.Rec.Analog 100 Unit/ML SUBCUT SCH ×3 (08:46→17:37)
[2020-07-02] MEDS: predniSONE 5 MG Tab PO SCH (08:49)
[2020-07-02] MEDS: predniSONE 20 MG Tab PO SCH (08:49)
[2020-07-02] MEDS: Carvedilol 12.5 MG Tab PO SCH ×2 (08:51→22:09)
[2020-07-02] MEDS ORDERED: CYCLOSPORINE PO SCH (09:00)
[2020-07-02] MEDS ORDERED: amLODIPine 5 MG Tab PO SCH (09:00)
[2020-07-02] MEDS ORDERED: Losartan 50 MG Tab PO SCH (09:00)
[2020-07-02] MEDS ORDERED: PREDNISONE PO SCH (09:00)
[2020-07-02] MEDS: PITAVASTATIN CALCIUM 1 MG PO SCH (09:17)
[2020-07-02] MEDS: Famotidine 20 MG Tab PO SCH (10:04)
[2020-07-02] MEDS: Doxazosin 4 MG Tab PO SCH (22:08)
[2020-07-03] MEDS: Cefepime 2 GM in Premix Bag 1 BAG IV SCH ×3 (00:02→18:44)
--- NOTE | 2020-07-03 07:16 | PCM.PN ---
- General Info Date of Service: 07/03/20 Admission Dx/Problem (Free Text): Severe Neutropenia Subjective Update: No overnight or acute issues. He remains afebrile and his WBC is now at 1.92. His Hgb is slightly down to 7.8 grams and his platelet drops further to 7K. He is eating and drinking fine. He has no cardiopulmonary complaints. However he has been bradycardic in the 50s with pauses. Functional Status: Reports: Pain Controlled, Tolerating Diet, Ambulating, Urin ating - Review of Systems General: Denies: Fever, Weakness, Fatigue, Malaise HEENT: Denies: Headaches, Sore Throat Pulmonary: Denies: Shortness of Breath, Cough, Sputum Cardiovascular: Denies: Chest Pain, Dyspnea on Exertion, Lightheadedness Gastrointestinal: Denies: Abdominal Pain, Nausea, Vomiting Genitourinary: Denies: Dysuria, Burning Musculoskeletal: Denies: Joint Pain Skin: Denies: Jaundice, Bruising, Pruritis Neurological: Denies: Dizziness, Seizure, Difficulty Walking, Weakness, Gait Disturbance Psychiatric: Denies: Depression, Anxiety - Patient Data Vitals - Most Recent: Last Vital Signs Temp 36.5 C 07/03/20 04:06 Pulse 56 L 07/03/20 04:06 Resp 16 07/03/20 04:06 BP 151/83 H 07/03/20 04:06 Pulse Ox 94 L 07/03/20 04:06 Weight - Most Recent: 129.546 kg I&O - Last 24 Hours: Intake & Output 07/02/20 07/03/20 07/03/20 22:59 06:59 14:59 Intake Total 1270 250 Output Total 725 Balance 1270 -475 Lab Results Last 24 Hours: Laboratory Results - last 24 hr 07/02/20 07/02/20 07/02/20 Range/Units 05:28 05:28 11:16 Manual Slide Review Abnormal smear POC Glucose 137 H (83-110) mg/dL Vitamin D 25-Hydroxy 40.5 (30.0-100.0) ng/ml 07/02/20 Range/Units 17:08 Manual Slide Review POC Glucose 199 H (83-110) mg/dL Vitamin D 25-Hydroxy (30.0-100.0) ng/ml Phil Results Last 24 Hours: Microbiology 06/30/20 15:05 Aerobic Blood Culture - Preliminary Blood NO GROWTH AFTER 2 DAYS Anaerobic Blood Culture - Preliminary NO GROWTH AFTER 2 DAYS 06/30/20 15:10 Urine Culture - Final Urine, Clean Catch 06/30/20 16:15 MRSA Culture - Final Nares, Unspecified NO MRSA ISOLATED 06/30/20 15:11 Aerobic Blood Culture - Preliminary Blood - Venous Gram Negative Rods Anaerobic Blood Culture - Preliminary Gp Cocci In Pairs And Chains Med Orders - Current: Current Medications Acetaminophen (Tylenol) 650 mg PO Q4H PRN PRN Reason: Pain (Mild 1-3)/fever Last Admin: 07/02/20 00:06 Dose: 650 mg Documented by: Acetaminophen (Tylenol) 650 mg RECTAL Q4H PRN PRN Reason: Pain (mild 1-3) Hydrocodone Bitart/Acetaminophen ([place] 325-5 Mg) 1 tab PO Q4H PRN PRN Reason: Pain (moderate 4-6) Albuterol/Ipratropium (Duoneb 3.0-0.5 Mg/3 Ml) 3 ml NEB Q4H PRN PRN Reason: Shortness Of Breath/wheezing Carvedilol (Coreg) 12.5 mg PO BID [facility] Last Admin: 07/02/20 22:09 Dose: 12.5 mg Documented by: Cholecalciferol (Vitamin D3) 25 mcg PO DAILY [facility] Cyclosporine (Modified) (Neoral) 600 mg PO DAILY [facility] Last Admin: 07/02/20 08:52 Dose: 600 mg Documented by: Cyclosporine (Modified) (Neoral) 700 mg PO BEDTIME [facility] Last Admin: 07/02/20 22:11 Dose: 700 mg Documented by: Doxazosin Mesylate (Cardura) 4 mg PO BEDTIME [facility] Last Admin: 07/02/20 22:08 Dose: 4 mg Documented by: Famotidine (Pepcid) 20 mg PO DAILY [facility] Last Admin: 07/02/20 10:04 Dose: Not Given Documented by: Hydralazine HCl (Apresoline) 20 mg IVPUSH Q4H PRN PRN Reason: Hypertension Last Admin: 07/01/20 21:39 Dose: 20 mg Documented by: Hydromorphone HCl (Dilaudid) 0.25 mg IVPUSH Q2H PRN PRN Reason: Pain (severe 7-10) Promethazine HCl 12.5 mg/ (Sodium Chloride) 50.5 mls @ 100 mls/hr IV Q6H PRN PRN Reason: Nausea/Vomiting Cefepime HCl 2 gm/ Premix 50 mls @ 100 mls/hr IV Q8H [facility] Last Admin: 07/03/20 00:02 Dose: 100 mls/hr Documented by: Ibuprofen (Motrin) 600 mg PO Q6H PRN PRN Reason: Pain (moderate 4-6) Last Admin: 06/30/20 21:40 Dose: 600 mg Documented by: Insulin Glargine (Lantus) 10 unit SUBCUT BID@0700,1700 [facility] Last Admin: 07/02/20 17:37 Dose: 10 units Documented by: Insulin Human Lispro (Humalog) 0 unit SUBCUT TIDAC [facility]; Protocol Last Admin: 07/02/20 17:36 Dose: 2 units Documented by: Ondansetron HCl (Zofran) 4 mg IV Q6H PRN PRN Reason: Nausea/Vomiting Pitavastatin Calcium ([Livalo] 1 Mg) 0 each PO DAILY [facility] Last Admin: 07/02/20 09:17 Dose: Not Given Documented by: Polyethylene Glycol (Miralax) 17 gm PO DAILY PRN PRN Reason: Constipation Prednisone (Prednisone) 120 mg PO DAILY [facility] Last Admin: 07/02/20 08:49 Dose: 120 mg Documented by: Prednisone (Prednisone) 5 mg PO DAILY [facility] Last Admin: 07/02/20 08:49 Dose: 5 mg Documented by: Senna/Docusate Sodium (Senna Plus) 1 tab PO BID PRN PRN Reason: Constipation Tbo-Filgrastim (Granix) 650 mcg SQ DAILY [facility] Last Admin: 07/02/20 09:15 Dose: 650 mcg Documented by: Zolpidem Tartrate (Ambien) 5 mg PO BEDTIME PRN PRN Reason: Sleep Discontinued Medications Amlodipine Besylate (Norvasc) 5 mg PO DAILY [facility] Last Admin: 07/02/20 09:16 Dose: Not Given Documented by: Carvedilol (Coreg) 25 mg PO BID [facility] Last Admin: 07/02/20 08:51 Dose: 12.5 mg Documented by: Sodium Chloride (Normal Saline) 1,000 mls @ 100 mls/hr IV ASDIRECTED [facility] Stop: 07/01/20 00:44 Last Admin: 06/30/20 21:40 Dose: 100 mls/hr Documented by: Cefepime HCl 1 gm/ Premix 50 mls @ 100 mls/hr IV Q12H [facility] Last Admin: 06/30/20 20:17 Dose: 100 mls/hr Documented by: Acyclovir 730 mg/ Sodium (Chloride) 264.6 mls @ 130 mls/hr IV Q8H [facility] Last Admin: 07/02/20 01:15 Dose: 130 mls/hr Documented by: Micafungin Sodium 100 mg/ (Sodium Chloride) 100 mls @ 100 mls/hr IV Q24H [facility] Last Admin: 07/01/20 17:09 Dose: 100 mls/hr Documented by: Lactated Ringer's (Ringers, Lactated) 1,000 mls @ 999 mls/hr IV BOLUS [facility] Stop: 07/02/20 17:15 Last Admin: 06/30/20 20:21 Dose: 999 mls/hr Documented by: Magnesium Sulfate (Magnesium Sulfate In Water Premix) 2 gm in 50 mls @ 25 mls/hr IV ONETIME ONE Stop: 06/30/20 19:59 Last Admin: 06/30/20 17:22 Dose: 25 mls/hr Documented by: Sodium Chloride (Normal Saline) 250 mls @ 50 mls/hr IV ASDIRECTED [facility] Magnesium Sulfate/Dextrose 1 (gm/ Premix) 100 mls @ 100 mls/hr IV ONETIME ONE Stop: 07/02/20 08:06 Last Admin: 07/02/20 08:37 Dose: 100 mls/hr Documented by: Insulin Glargine (Lantus) 10 unit SUBCUT BIDAC [facility] Last Admin: 07/02/20 11:46 Dose: Not Given Documented by: Losartan Potassium (Cozaar) 50 mg PO DAILY [facility] Last Admin: 07/02/20 09:16 Dose: Not Given Documented by: Non-Formulary Medication (Cyclosporine [Cyclosporine]) 600 mg PO DAILY [facility] Non-Formulary Medication (Cyclosporine [Cyclosporine]) 700 mg PO BEDTIME [facility] Non-Formulary Medication (Prednisone [Prednisone]) 125 mg PO DAILY [facility] - Exam General: Alert, Oriented, Cooperative, No Acute Distress, Other (Obese) HEENT: Pupils Equal, Pupils Reactive, EOMI, Mucous Membr. Moist/[place] Neck: Supple, Trachea Midline Lungs: Normal Respiratory Effort, Decreased Breath Sounds Cardiovascular: Regular Rate, Regular Rhythm GI/Abdominal Exam: Normal Bowel Sounds, Soft, Non-Tender, No Organomegaly, No Distention, No Abnormal Bruit, Other (Obese) (Male) Exam: Deferred Back Exam: Normal Inspection, Decreased Range of Motion Extremities: Normal Inspection, Normal Range of Motion, Non-Tender, No Pedal Edema, Normal Capillary Refill, Pedal Edema, Other ( mild lower extremity edema on both legs) Peripheral Pulses: 1+: Dorsalis Pedis (L), Dorsalis Pedis (R) Skin: Warm, Dry, Intact Neurological: No New Focal Deficit Psy/Mental Status: Alert, Normal Affect, Normal Mood Sepsis Event Note - Evaluation Sepsis Screening Result: No Definite Risk - Focused Exam Vital Signs: Vital Signs Temp Pulse Resp BP Pulse Ox 07/03/20 04:06 36.5 C 56 L 16 151/83 H 94 L 07/02/20 23:31 16 152/77 H 07/02/20 22:09 62 116/87 07/02/20 22:08 116/87 - Problem List Review Problem List Initiated/Reviewed/Updated: Yes - My Orders Last 24 Hours: My Active Orders 07/02/20 07:00 Insulin Glarg,Human.Rec.Analog [LantUS] 10 unit SUBCUT BID@0700,1700 07/02/20 09:00 Famotidine [Pepcid] 20 mg PO DAILY Patient's Own Medication [Ptom] 0 each PO DAILY 07/02/20 21:00 carvediloL [Coreg] 12.5 mg PO BID 07/03/20 05:11 BMP [BASIC METABOLIC PANEL,BMP] [CHEM] AM CBC WITH AUTO DIFF [HEME] AM CRP [C-REACTIVE PROTEIN] [CHEM] AM CULTURE BLOOD [BC] AM CULTURE BLOOD [BC] AM MAGNESIUM [CHEM] AM Blood Culture x2 Reflex Set [OM.PC] AM 07/03/20 09:00 Cholecalciferol (Vitamin D3) [Vitamin D3] 25 mcg PO DAILY 07/04/20 05:11 BMP [BASIC METABOLIC PANEL,BMP] [CHEM] AM CBC WITH AUTO DIFF [HEME] AM CRP [C-REACTIVE PROTEIN] [CHEM] AM MAGNESIUM [CHEM] AM 07/05/20 05:11 BMP [BASIC METABOLIC PANEL,BMP] [CHEM] AM CBC WITH AUTO DIFF [HEME] AM MAGNESIUM [CHEM] AM 07/06/20 05:11 BMP [BASIC METABOLIC PANEL,BMP] [CHEM] AM CBC WITH AUTO DIFF [HEME] AM MAGNESIUM [CHEM] AM 07/07/20 05:11 BMP [BASIC METABOLIC PANEL,BMP] [CHEM] AM CBC WITH AUTO DIFF [HEME] AM MAGNESIUM [CHEM] AM - Plan Plan:: This is a 74 yo elderly white male with past medical hx/o COVID 19 Infection and Aplastic Anemia S/p BM biopsy 2 weeks currently on chemotherapy with Anti Thymocyte Globulin, Cyclosporines, Methylprednisolone as well Filgrastin (Zarxio), and Obesity who comes to us as a direct admit from the clinic for further management for Severe Neutropenia and Community Acquired Pneumonia diagnosed at the clinic today while he was being seen for routine follow up labs. Assessment: Acute: Sepsis secondary to community acquired pneumonia Bacteremia secondary to GP in Pairs and Chains as well as Pseudomonas aeruginosa, awaiting further info on organisms Severe neutropenia with ANC of 0, improving Pancytopenia: Moderate anemia, Severe neutropenia, Severe thrombocytopenia and Relative lymphocytosis via BM * Hgb 7 grams yesterday and received 2 units of PRBC at the clinic; Hgb today is 7.8 grams * Platelet 1K yesterday and received 1 unit of Platelet at the clinic; Platelet today is 7K-->need one unit of platelet today * Cut off: infuse blood if symptomatic and Platelet if < 10K or < 20K with active bleeding/fever per Oncology provider Aplastic Anemia currently on chemotherapy: cyclosporin, steroid, and zarxio (will continue regimen) S/p BM Biopsy : * Hypocellular marrow with markedly decreased trilineage hematopoiesis. No increased blasts. Relative lymphohistiocytic hyperplasia with plasmacytosis. * Deemed ineligible for transplant from note obtained at the clinic Right Middle Lobe PNA * No shortness of breath or cough * He is on RA * Repeat chest x-ray on 07/01/2020: increased density within previously right lower lobe pneumonia Lactic Acidosis, resolved * LA of 4.0-->now 2.0 * Likely from underlying sepsis * Volume resuscitation Hx/o Covid -19 Infection in Nov Hyperglycemia, improved * Due to new onset of diabetes * Carries no hx/o Diabetes or Glucose Intolerance * However he has been on steroid * A1C of 7.10 * Continue Lantus 10 units subQ BID and Accu-check TIDAC with ISS * Diabetic education Hypocalcemia * Non corrected Ca level of 8.4-->8.1 * Will monitor Hypomagnesemia, resolved * Mg of 1.6-->1.8-->1.5 * Likely due to inadequate intake * Continue to replete Mildly Elevated T. Bilirubin of 1.3 Elevated CRP of 11.6-->13.4-->12.8 Hypoalbuminemia with Albumin of 2.5 Bradycardia with Pauses * HR in the 50s * He takes 12.5 mg po BID of carvedilol-will hold it * ED echo since he has bacteremia Class III Obese Chronic: Aplastic Anemia, S/p BM Biopsy and Morbid Obesity Plan: Continue current treatment. Routine AM Labs. Continue IV Cefepime 1 gram Q8H. Dietary consult for weight management. DVT/GI prophylaxis: SCDs due to low platelet level and H2B. PT/OT when appropriate. Continue to avoid ASA and Anticoagulations. Resume Home Meds once verified. Repeat blood culture. Code status is full. Prognosis is good. LOS > 96 hrs pending repeat blood cultures for at least 48hrs and stable Hgb and platelet levels.
[2020-07-03] MEDS: predniSONE 20 MG Tab PO SCH (09:19)
[2020-07-03] MEDS: Famotidine 20 MG Tab PO SCH (09:20)
[2020-07-03] MEDS: predniSONE 5 MG Tab PO SCH (09:20)
[2020-07-03] MEDS: Cholecalciferol (Vitamin D3) 25 MCG Tab PO SCH (09:20)
[2020-07-03] MEDS: PITAVASTATIN CALCIUM 1 MG PO SCH (09:25)
[2020-07-03] MEDS ORDERED: Magnesium Sulfate/Water 2 GM/50 ML BAG IV ONE (11:00)
[2020-07-03] MEDS: Carvedilol 12.5 MG Tab PO SCH (11:33)
[2020-07-03] MEDS: Insulin Glarg,Human.Rec.Analog 100 Unit/ML SUBCUT SCH ×2 (12:39→19:06)
[2020-07-03] MEDS: Sodium Chloride 0.9% 250 ML IV SCH (16:30)
[2020-07-03] MEDS: Doxazosin 4 MG Tab PO SCH (20:43)
[2020-07-04] MEDS: Cefepime 2 GM in Premix Bag 1 BAG IV SCH ×4 (00:11→23:49)
[2020-07-04] MEDS ORDERED: Magnesium Sulfate/Water 4 GM in Premix Bag 1 BAG IV ONE (07:53)
--- NOTE | 2020-07-04 07:54 | PCM.PN ---
- General Info Date of Service: 07/04/20 Admission Dx/Problem (Free Text): Severe Neutropenia Subjective Update: No significant overnight or acute issues. He slept pretty good. He has been walking and using his respiratory toys with no issues. He has no complaints this morning. He is afebrile. His WBC slightly drop to 1.23. His hemoglobin is now down to 7.2 g but his platelet has improve to 19K. His magnesium remains low at 1.7. His CRP continues to improve. His blood cultures Pseudomonas aeruginosa and Streptococcus salivarius. Functional Status: Reports: Pain Controlled, Tolerating Diet, Ambulating, Urinating. Denies: New Symptoms - Review of Systems General: Denies: Fever, Weakness, Fatigue, Malaise, Chills HEENT: Denies: Headaches, Sinus Congestion, Sore Throat Pulmonary: Denies: Shortness of Breath, Cough Cardiovascular: Denies: Chest Pain, Dyspnea on Exertion, Lightheadedness Gastrointestinal: Denies: Abdominal Pain, Decreased Appetite, Nausea, Vomiting Genitourinary: Denies: Dysuria, Burning Musculoskeletal: Denies: Joint Pain Skin: Denies: Bruising, Pruritis, Rash Neurological: Denies: Confusion, Difficulty Walking, Weakness, Gait Disturbance Psychiatric: Denies: Depression, Anxiety - Patient Data Vitals - Most Recent: Last Vital Signs Temp 36.4 C 07/04/20 04:29 Pulse 57 L 07/04/20 04:29 Resp 20 07/04/20 00:27 BP 149/80 H 07/04/20 04:29 Pulse Ox 96 07/04/20 04:29 Weight - Most Recent: 129.228 kg I&O - Last 24 Hours: Intake & Output 07/03/20 07/04/20 07/04/20 22:59 06:59 14:59 Intake Total 1200 400 Output Total 800 Balance 1200 -400 Lab Results Last 24 Hours: Laboratory Results - last 24 hr 06/30/20 07/03/20 07/03/20 Range/Units 15:05 07:10 07:10 WBC (4.23-9.07) K/mm3 RBC (4.63-6.08) M/mm3 Hgb (13.7-17.5) gm/dl Hct (40.1-51.0) % MCV (79.0-92.2) fl MCH (25.7-32.2) pg MCHC (32.2-35.5) g/dl RDW Std Deviation (35.1-43.9) fL Plt Count (163-337) K/mm3 MPV (9.4-12.3) fl Neut % (Auto) (34.0-67.9) % Lymph % (Auto) (21.8-53.1) % Mcdowell % (Auto) (5.3-12.2) % Eos % (Auto) (0.8-7.0) Baso % (Auto) (0.1-1.2) % Neut # (Auto) (1.78-5.38) K/mm3 Lymph # (Auto) (1.32-3.57) K/mm3 Mcdowell # (Auto) (0.30-0.82) K/mm3 Eos # (Auto) (0.04-0.54) K/mm3 Baso # (Auto) (0.01-0.08) K/mm3 Manual Slide Review Abnormal smear Sodium 137 (136-145) mEq/L Potassium 4.2 (3.5-5.1) mEq/L Chloride 101 (98-107) mEq/L Carbon Dioxide 26 (21-32) mEq/L Anion Gap 14.2 (5-15) BUN 36 H (7-18) mg/dL Creatinine 0.9 (0.7-1.3) mg/dL Est Cr Clr Drug Dosing 75.48 mL/min Estimated GFR (MDRD) > 60 (>60) mL/min BUN/Creatinine Ratio 40.0 H (14-18) Glucose 133 H (83-115) mg/dL POC Glucose (83-110) mg/dL Calcium 8.2 L (8.5-10.1) mg/dL Magnesium 1.6 L (1.8-2.4) mg/dl C-Reactive Protein 8.0 H* (<1.0) mg/dL Blood Type B POSITIVE Gel Antibody Screen Negative Crossmatch See Detail 07/03/20 07/03/20 07/04/20 Range/Units 11:54 18:58 06:25 WBC 1.23 L* (4.23-9.07) K/mm3 RBC 2.40 L (4.63-6.08) M/mm3 Hgb 7.2 L* (13.7-17.5) gm/dl Hct 21.2 L (40.1-51.0) % MCV 88.3 (79.0-92.2) fl MCH 30.0 (25.7-32.2) pg MCHC 34.0 (32.2-35.5) g/dl RDW Std Deviation 43.8 (35.1-43.9) fL Plt Count 19 L* (163-337) K/mm3 MPV 9.9 (9.4-12.3) fl Neut % (Auto) 4.1 L (34.0-67.9) % Lymph % (Auto) 91.9 H (21.8-53.1) % Mcdowell % (Auto) 2.4 L (5.3-12.2) % Eos % (Auto) 0 L (0.8-7.0) Baso % (Auto) 0.8 (0.1-1.2) % Neut # (Auto) 0.05 L (1.78-5.38) K/mm3 Lymph # (Auto) 1.13 L (1.32-3.57) K/mm3 Mcdowell # (Auto) 0.03 L (0.30-0.82) K/mm3 Eos # (Auto) 0.00 L (0.04-0.54) K/mm3 Baso # (Auto) 0.01 (0.01-0.08) K/mm3 Manual Slide Review Abnormal smear Sodium (136-145) mEq/L Potassium (3.5-5.1) mEq/L Chloride (98-107) mEq/L Carbon Dioxide (21-32) mEq/L Anion Gap (5-15) BUN (7-18) mg/dL Creatinine (0.7-1.3) mg/dL Est Cr Clr Drug Dosing mL/min Estimated GFR (MDRD) (>60) mL/min BUN/Creatinine Ratio (14-18) Glucose (83-115) mg/dL POC Glucose 151 H 261 H (83-110) mg/dL Calcium (8.5-10.1) mg/dL Magnesium (1.8-2.4) mg/dl C-Reactive Protein (<1.0) mg/dL Blood Type Gel Antibody Screen Crossmatch 07/04/20 07/04/20 Range/Units 06:25 07:00 WBC (4.23-9.07) K/mm3 RBC (4.63-6.08) M/mm3 Hgb (13.7-17.5) gm/dl Hct (40.1-51.0) % MCV (79.0-92.2) fl MCH (25.7-32.2) pg MCHC (32.2-35.5) g/dl RDW Std Deviation (35.1-43.9) fL Plt Count (163-337) K/mm3 MPV (9.4-12.3) fl Neut % (Auto) (34.0-67.9) % Lymph % (Auto) (21.8-53.1) % Mcdowell % (Auto) (5.3-12.2) % Eos % (Auto) (0.8-7.0) Baso % (Auto) (0.1-1.2) % Neut # (Auto) (1.78-5.38) K/mm3 Lymph # (Auto) (1.32-3.57) K/mm3 Mcdowell # (Auto) (0.30-0.82) K/mm3 Eos # (Auto) (0.04-0.54) K/mm3 Baso # (Auto) (0.01-0.08) K/mm3 Manual Slide Review Sodium 137 (136-145) mEq/L Potassium 4.4 (3.5-5.1) mEq/L Chloride 102 (98-107) mEq/L Carbon Dioxide 26 (21-32) mEq/L Anion Gap 13.4 (5-15) BUN 37 H (7-18) mg/dL Creatinine 1.0 (0.7-1.3) mg/dL Est Cr Clr Drug Dosing 67.93 mL/min Estimated GFR (MDRD) > 60 (>60) mL/min BUN/Creatinine Ratio 37.0 H (14-18) Glucose 125 H (83-115) mg/dL POC Glucose 119 H (83-110) mg/dL Calcium 8.3 L (8.5-10.1) mg/dL Magnesium 1.7 L (1.8-2.4) mg/dl C-Reactive Protein 5.2 H* (<1.0) mg/dL Blood Type Gel Antibody Screen Crossmatch Phil Results Last 24 Hours: Microbiology 07/03/20 07:18 Aerobic Blood Culture - Preliminary Blood - Venous NO GROWTH AFTER 1 DAY Anaerobic Blood Culture - Preliminary NO GROWTH AFTER 1 DAY 07/03/20 07:10 Aerobic Blood Culture - Preliminary Blood - Venous - Lab Draw NO GROWTH AFTER 1 DAY Anaerobic Blood Culture - Preliminary NO GROWTH AFTER 1 DAY 06/30/20 15:05 Aerobic Blood Culture - Preliminary Blood NO GROWTH AFTER 3 DAYS Anaerobic Blood Culture - Preliminary NO GROWTH AFTER 3 DAYS 06/30/20 15:11 Aerobic Blood Culture - Preliminary Blood - Venous Pseudo Aeruginosa Anaerobic Blood Culture - Preliminary Streptococcus Salivarius Med Orders - Current: Current Medications Acetaminophen (Tylenol) 650 mg PO Q4H PRN PRN Reason: Pain (Mild 1-3)/fever Last Admin: 07/02/20 00:06 Dose: 650 mg Documented by: Acetaminophen (Tylenol) 650 mg RECTAL Q4H PRN PRN Reason: Pain (mild 1-3) Hydrocodone Bitart/Acetaminophen ([place]ants 325-5 Mg) 1 tab PO Q4H PRN PRN Reason: Pain (moderate 4-6) Albuterol/Ipratropium (Duoneb 3.0-0.5 Mg/3 Ml) 3 ml NEB Q4H PRN PRN Reason: Shortness Of Breath/wheezing Cholecalciferol (Vitamin D3) 25 mcg PO DAILY [facility] Last Admin: 07/03/20 09:20 Dose: 25 mcg Documented by: Cyclosporine (Modified) (Neoral) 600 mg PO DAILY [facility] Last Admin: 07/03/20 09:16 Dose: 600 mg Documented by: Cyclosporine (Modified) (Neoral) 700 mg PO BEDTIME [facility] Last Admin: 07/03/20 20:46 Dose: 700 mg Documented by: Doxazosin Mesylate (Cardura) 4 mg PO BEDTIME [facility] Last Admin: 07/03/20 20:43 Dose: 4 mg Documented by: Famotidine (Pepcid) 20 mg PO DAILY [facility] Last Admin: 07/03/20 09:20 Dose: Not Given Documented by: Hydralazine HCl (Apresoline) 20 mg IVPUSH Q4H PRN PRN Reason: Hypertension Last Admin: 07/01/20 21:39 Dose: 20 mg Documented by: Hydromorphone HCl (Dilaudid) 0.25 mg IVPUSH Q2H PRN PRN Reason: Pain (severe 7-10) Promethazine HCl 12.5 mg/ (Sodium Chloride) 50.5 mls @ 100 mls/hr IV Q6H PRN PRN Reason: Nausea/Vomiting Cefepime HCl 2 gm/ Premix 50 mls @ 100 mls/hr IV Q8H [facility] Last Admin: 07/04/20 00:11 Dose: 100 mls/hr Documented by: Sodium Chloride (Normal Saline) 250 mls @ 50 mls/hr IV ASDIRECTED [facility] Ibuprofen (Motrin) 600 mg PO Q6H PRN PRN Reason: Pain (moderate 4-6) Last Admin: 06/30/20 21:40 Dose: 600 mg Documented by: Insulin Glargine (Lantus) 10 unit SUBCUT BID@0700,1700 [facility] Last Admin: 07/03/20 19:06 Dose: 10 units Documented by: Insulin Human Lispro (Humalog) 0 unit SUBCUT TIDAC [facility]; Protocol Last Admin: 07/03/20 19:07 Dose: 6 units Documented by: Ondansetron HCl (Zofran) 4 mg IV Q6H PRN PRN Reason: Nausea/Vomiting Pitavastatin Calcium ([Livalo] 1 Mg) 0 each PO DAILY [facility] Last Admin: 07/03/20 09:25 Dose: Not Given Documented by: Polyethylene Glycol (Miralax) 17 gm PO DAILY PRN PRN Reason: Constipation Prednisone (Prednisone) 120 mg PO DAILY [facility] Last Admin: 07/03/20 09:19 Dose: 120 mg Documented by: Prednisone (Prednisone) 5 mg PO DAILY [facility] Last Admin: 07/03/20 09:20 Dose: 5 mg Documented by: Senna/Docusate Sodium (Senna Plus) 1 tab PO BID PRN PRN Reason: Constipation Tbo-Filgrastim (Granix) 650 mcg SQ DAILY [facility] Last Admin: 07/03/20 09:21 Dose: 650 mcg Documented by: Zolpidem Tartrate (Ambien) 5 mg PO BEDTIME PRN PRN Reason: Sleep Last Admin: 07/04/20 01:28 Dose: 5 mg Documented by: Discontinued Medications Amlodipine Besylate (Norvasc) 5 mg PO DAILY [facility] Last Admin: 07/02/20 09:16 Dose: Not Given Documented by: Carvedilol (Coreg) 25 mg PO BID [facility] Last Admin: 07/02/20 08:51 Dose: 12.5 mg Documented by: Carvedilol (Coreg) 12.5 mg PO BID [facility] Last Admin: 07/03/20 11:33 Dose: Not Given Documented by: Sodium Chloride (Normal Saline) 1,000 mls @ 100 mls/hr IV ASDIRECTED [facility] Stop: 07/01/20 00:44 Last Admin: 06/30/20 21:40 Dose: 100 mls/hr Documented by: Cefepime HCl 1 gm/ Premix 50 mls @ 100 mls/hr IV Q12H [facility] Last Admin: 06/30/20 20:17 Dose: 100 mls/hr Documented by: Acyclovir 730 mg/ Sodium (Chloride) 264.6 mls @ 130 mls/hr IV Q8H [facility] Last Admin: 07/02/20 01:15 Dose: 130 mls/hr Documented by: Micafungin Sodium 100 mg/ (Sodium Chloride) 100 mls @ 100 mls/hr IV Q24H [facility] Last Admin: 07/01/20 17:09 Dose: 100 mls/hr Documented by: Lactated Ringer's (Ringers, Lactated) 1,000 mls @ 999 mls/hr IV BOLUS [facility] Stop: 07/02/20 17:15 Last Admin: 06/30/20 20:21 Dose: 999 mls/hr Documented by: Magnesium Sulfate (Magnesium Sulfate In Water Premix) 2 gm in 50 mls @ 25 mls/hr IV ONETIME ONE Stop: 06/30/20 19:59 Last Admin: 06/30/20 17:22 Dose: 25 mls/hr Documented by: Sodium Chloride (Normal Saline) 250 mls @ 50 mls/hr IV ASDIRECTED [facility] Magnesium Sulfate/Dextrose 1 (gm/ Premix) 100 mls @ 100 mls/hr IV ONETIME ONE Stop: 07/02/20 08:06 Last Admin: 07/02/20 08:37 Dose: 100 mls/hr Documented by: Magnesium Sulfate (Magnesium Sulfate In Water Premix) 2 gm in 50 mls @ 25 mls/hr IV ONETIME ONE Stop: 07/03/20 12:59 Last Admin: 07/03/20 11:28 Dose: 25 mls/hr Documented by: Insulin Glargine (Lantus) 10 unit SUBCUT BIDAC [facility] Last Admin: 07/02/20 11:46 Dose: Not Given Documented by: Losartan Potassium (Cozaar) 50 mg PO DAILY [facility] Last Admin: 07/02/20 09:16 Dose: Not Given Documented by: Non-Formulary Medication (Cyclosporine [Cyclosporine]) 600 mg PO DAILY [facility] Non-Formulary Medication (Cyclosporine [Cyclosporine]) 700 mg PO BEDTIME [facility] Non-Formulary Medication (Prednisone [Prednisone]) 125 mg PO DAILY [facility] - Exam Quality Assessment: DVT Prophylaxis. No: Supplemental Oxygen, Urine Catheter General: Alert, Oriented, Cooperative, No Acute Distress, Other (Obese) HEENT: Pupils Equal, Pupils Reactive, EOMI, Mucous Membr. Moist/[place] Neck: Supple Lungs: Normal Respiratory Effort, Decreased Breath Sounds Cardiovascular: Regular Rate, Regular Rhythm GI/Abdominal Exam: Normal Bowel Sounds, Soft, Non-Tender, No Organomegaly, No Distention, No Abnormal Bruit, No Mass, Other (Obese) (Male) Exam: Deferred Back Exam: Normal Inspection, Decreased Range of Motion Extremities: Normal Inspection, Normal Range of Motion, Non-Tender, No Pedal Edema, Normal Capillary Refill, Other (Trace lower extremity edema on both legs) Peripheral Pulses: 2+: Dorsalis Pedis (L), Dorsalis Pedis (R) Skin: Warm, Dry, Intact Neurological: No New Focal Deficit Psy/Mental Status: Alert, Normal Affect, Normal Mood Sepsis Event Note - Evaluation Sepsis Screening Result: No Definite Risk - Focused Exam Vital Signs: Vital Signs Temp Pulse Resp BP Pulse Ox 07/04/20 04:29 36.4 C 57 L 149/80 H 96 07/04/20 00:27 36.4 C 56 L 20 92 L 07/03/20 20:43 143/83 H 07/03/20 20:14 36.5 C 56 L 22 H 145/83 H 95 07/03/20 20:00 16 - Problem List Review Problem List Initiated/Reviewed/Updated: Yes - My Orders Last 24 Hours: My Active Orders 07/03/20 07:10 CULTURE BLOOD [BC] AM 07/03/20 07:18 CULTURE BLOOD [BC] AM 07/03/20 07:47 Transfuse Platelets [COMM] Routine 07/03/20 09:00 Cholecalciferol (Vitamin D3) [Vitamin D3] 25 mcg PO DAILY 07/03/20 16:00 Sodium Chloride 0.9% [Normal Saline] 250 ml IV ASDIRECTED 07/04/20 07:51 Blood Transfusion Reflex Orders [OM.PC] Routine 07/04/20 07:52 RED BLOOD CELLS LP [BBK] Routine TYPE AND SCREEN [BBK] Routine 07/04/20 07:53 Magnesium Sulfate/Water [Magnesium Sulfate in Water Premix] 4 gm Premix Bag 1 bag IV ONETIME 07/05/20 05:11 BMP [BASIC METABOLIC PANEL,BMP] [CHEM] AM CBC WITH AUTO DIFF [HEME] AM MAGNESIUM [CHEM] AM 07/06/20 05:11 BMP [BASIC METABOLIC PANEL,BMP] [CHEM] AM CBC WITH AUTO DIFF [HEME] AM MAGNESIUM [CHEM] AM 07/06/20 08:30 CYCLOSPORINE BY IMMUNOASSAY [REF] Routine 07/07/20 05:11 BMP [BASIC METABOLIC PANEL,BMP] [CHEM] AM CBC WITH AUTO DIFF [HEME] AM MAGNESIUM [CHEM] AM - Plan Plan:: This is a 74 yo elderly white male with past medical hx/o COVID 19 Infection and Aplastic Anemia S/p BM biopsy 2 weeks currently on chemotherapy with Anti Thymocyte Globulin, Cyclosporines, Methylprednisolone as well Filgrastin (Zarxio), and Obesity who comes to us as a direct admit from the clinic for further management for Severe Neutropenia and Community Acquired Pneumonia diagnosed at the clinic today while he was being seen for routine follow up labs. Assessment: Acute: Sepsis secondary to community acquired pneumonia, pain Bacteremia secondary to Pseudomonas aeruginosa and Streptococcus salivarius Severe neutropenia with ANC of 0, continue to improve Pancytopenia: Moderate anemia, Severe neutropenia, Severe thrombocytopenia and Relative lymphocytosis via BM * Hgb 7 grams yesterday and received 2 units of PRBC at the clinic; Hgb today is 7.2 grams today; regarding transfused 2 units of packed red blood cells before the go bad. Discharge has been on hold since admission. * Platelet 1K yesterday and received 1 unit of Platelet at the clinic; Platelet today is 19K; 1 unit of platelet transfusion * Cut off: infuse blood if symptomatic and Platelet if < 10K or < 20K with active bleeding/fever per Oncology provider * Blood culture so far is negative for 24 hours Aplastic Anemia currently on chemotherapy: cyclosporin, steroid, and zarxio (will continue regimen) S/p BM Biopsy : * Hypocellular marrow with markedly decreased trilineage hematopoiesis. No increased blasts. Relative lymphohistiocytic hyperplasia with plasmacytosis. * Deemed ineligible for transplant from note obtained at the clinic Right Middle Lobe PNA * No shortness of breath or cough * He is on RA * Repeat chest x-ray on 07/01/2020: increased density within previously right lower lobe pneumonia Hx/o Covid -19 Infection in Nov Hyperglycemia, improved * Due to new onset of diabetes * Carries no hx/o Diabetes or Glucose Intolerance * However he has been on steroid * A1C of 7.10 * Continue Accu-check TIDAC with ISS and will change Lantus to 12 units subQ BID * Diabetic education Hypocalcemia * Non corrected Ca level of 8.4-->8.1-->8.3 * Calcium is 9.5 mg/dL * Continue to monitor Hypomagnesemia, persistent * Mg of 1.6-->1.8-->1.5-->1.7 * Likely due to inadequate intake * Continue to replete * We will start him on oral supplement starting tonight Mildly Elevated T. Bilirubin of 1.3 Elevated CRP of 11.6-->13.4-->12.8 Hypoalbuminemia with Albumin of 2.5 Bradycardia with Pauses * HR in the 50s * He takes 12.5 mg po BID of carvedilol-will hold it * ED echo since he has bacteremia Class III Obese Resolved: Lactic Acidosis, resolved * LA of 4.0-->now 2.0 * Likely from underlying sepsis * Volume resuscitation Chronic: Aplastic Anemia, S/p BM Biopsy and Morbid Obesity Plan: Continue current treatment. Routine AM Labs. Continue IV Cefepime 1 gram Q8H. Dietary consult for weight management. DVT/GI prophylaxis: SCDs due to low platelet level and H2B. PT/OT when appropriate. Continue to avoid ASA and Anticoagulations. Resume Home Meds once verified. Transfuse 2 units of packed red blood cells. Code status is full. Prognosis is good. LOS > 96 hrs pending repeat blood cultures for at least 48hrs and stable Hgb and platelet levels.
[2020-07-04] MEDS: Famotidine 20 MG Tab PO SCH (08:32)
[2020-07-04] MEDS: predniSONE 5 MG Tab PO SCH (08:32)
[2020-07-04] MEDS: Cholecalciferol (Vitamin D3) 25 MCG Tab PO SCH (08:32)
[2020-07-04] MEDS: predniSONE 20 MG Tab PO SCH (08:33)
[2020-07-04] MEDS: Insulin Glarg,Human.Rec.Analog 100 Unit/ML SUBCUT SCH ×2 (08:37→18:05)
[2020-07-04] MEDS: PITAVASTATIN CALCIUM 1 MG PO SCH (11:12)
[2020-07-04] MEDS: Sodium Chloride 0.9% 250 ML IV SCH ×2 (11:35→17:31)
[2020-07-04] MEDS: hydrALAZINE 20 MG/ML SDV IVPUSH PRN ×2 (15:35→22:15)
[2020-07-04] MEDS: Acetaminophen 325 MG Tab PO PRN (19:45)
[2020-07-04] MEDS: Magnesium Oxide 400 MG Tab PO SCH (21:12)
[2020-07-04] MEDS: Doxazosin 4 MG Tab PO SCH (21:14)
[2020-07-05] MEDS: Acetaminophen 325 MG Tab PO PRN (00:23)
[2020-07-05] MEDS: hydrALAZINE 20 MG/ML SDV IVPUSH PRN (03:58)
--- NOTE | 2020-07-05 07:23 | PCM.PN ---
- General Info Date of Service: 07/05/20 Admission Dx/Problem (Free Text): Severe Neutropenia Subjective Update: No significant overnight or acute issues. He remains afebrile but his WBC drops to 0.97 this morning. His Hgb improves to 9.1 grams and platelet is stable at 13K. His repeat preliminary blood culture after 24 hrs so far is negative. Functional Status: Reports: Pain Controlled, Tolerating Diet, Ambulating, Urinating. Denies: New Symptoms - Review of Systems General: Denies: Fever, Weakness, Fatigue, Malaise, Chills HEENT: Denies: Headaches, Sinus Congestion, Sore Throat Pulmonary: Denies: Shortness of Breath, Cough Cardiovascular: Denies: Chest Pain, Dyspnea on Exertion, Lightheadedness Gastrointestinal: Denies: Abdominal Pain, Nausea, Vomiting Genitourinary: Denies: Dysuria, Frequency, Burning Musculoskeletal: Denies: Joint Pain Skin: Denies: Bruising, Pruritis, Rash Neurological: Denies: Dizziness, Difficulty Walking, Weakness, Gait Disturbance Psychiatric: Denies: Confusion, Depression, Anxiety - Patient Data Vitals - Most Recent: Last Vital Signs Temp 36.9 C 07/04/20 23:50 Pulse 59 L 07/05/20 04:10 Resp 16 07/04/20 23:50 BP 131/77 07/05/20 04:10 Pulse Ox 94 L 07/05/20 04:10 Weight - Most Recent: 129.228 kg I&O - Last 24 Hours: Intake & Output 07/04/20 07/05/20 07/05/20 22:59 06:59 14:59 Intake Total 1210 550 Output Total 750 1425 Balance 460 -875 Lab Results Last 24 Hours: Laboratory Results - last 24 hr 07/04/20 07/04/20 07/04/20 Range/Units 06:25 06:25 06:25 WBC (4.23-9.07) K/mm3 RBC (4.63-6.08) M/mm3 Hgb (13.7-17.5) gm/dl Hct (40.1-51.0) % MCV (79.0-92.2) fl MCH (25.7-32.2) pg MCHC (32.2-35.5) g/dl RDW Std Deviation (35.1-43.9) fL Plt Count (163-337) K/mm3 MPV (9.4-12.3) fl Neut % (Auto) (34.0-67.9) % Lymph % (Auto) (21.8-53.1) % [place] % (Auto) (5.3-12.2) % Eos % (Auto) (0.8-7.0) Baso % (Auto) (0.1-1.2) % Neut # (Auto) (1.78-5.38) K/mm3 Lymph # (Auto) (1.32-3.57) K/mm3 [place] # (Auto) (0.30-0.82) K/mm3 Eos # (Auto) (0.04-0.54) K/mm3 Baso # (Auto) (0.01-0.08) K/mm3 Manual Slide Review Abnormal smear Sodium 137 (136-145) mEq/L Potassium 4.4 (3.5-5.1) mEq/L Chloride 102 (98-107) mEq/L Carbon Dioxide 26 (21-32) mEq/L Anion Gap 13.4 (5-15) BUN 37 H (7-18) mg/dL Creatinine 1.0 (0.7-1.3) mg/dL Est Cr Clr Drug Dosing 67.93 mL/min Estimated GFR (MDRD) > 60 (>60) mL/min BUN/Creatinine Ratio 37.0 H (14-18) Glucose 125 H (83-115) mg/dL POC Glucose (83-110) mg/dL Calcium 8.3 L (8.5-10.1) mg/dL Magnesium 1.7 L (1.8-2.4) mg/dl C-Reactive Protein 5.2 H* (<1.0) mg/dL Blood Type B POSITIVE Gel Antibody Screen Negative Crossmatch See Detail 07/04/20 07/04/20 07/05/20 Range/Units 10:58 17:03 05:25 WBC 0.97 L* (4.23-9.07) K/mm3 RBC 3.07 L (4.63-6.08) M/mm3 Hgb 9.1 L D (13.7-17.5) gm/dl Hct 26.4 L (40.1-51.0) % MCV 86.0 (79.0-92.2) fl MCH 29.6 (25.7-32.2) pg MCHC 34.5 (32.2-35.5) g/dl RDW Std Deviation 44.8 H (35.1-43.9) fL Plt Count 13 L* (163-337) K/mm3 MPV 10.4 (9.4-12.3) fl Neut % (Auto) 3.1 L (34.0-67.9) % Lymph % (Auto) 90.7 H (21.8-53.1) % [place] % (Auto) 4.1 L (5.3-12.2) % Eos % (Auto) 0 L (0.8-7.0) Baso % (Auto) 0.0 L (0.1-1.2) % Neut # (Auto) 0.03 L (1.78-5.38) K/mm3 Lymph # (Auto) 0.88 L (1.32-3.57) K/mm3 [place] # (Auto) 0.04 L (0.30-0.82) K/mm3 Eos # (Auto) 0.00 L (0.04-0.54) K/mm3 Baso # (Auto) 0.00 L (0.01-0.08) K/mm3 Manual Slide Review Abnormal smear Sodium (136-145) mEq/L Potassium (3.5-5.1) mEq/L Chloride (98-107) mEq/L Carbon Dioxide (21-32) mEq/L Anion Gap (5-15) BUN (7-18) mg/dL Creatinine (0.7-1.3) mg/dL Est Cr Clr Drug Dosing mL/min Estimated GFR (MDRD) (>60) mL/min BUN/Creatinine Ratio (14-18) Glucose (83-115) mg/dL POC Glucose 151 H 215 H (83-110) mg/dL Calcium (8.5-10.1) mg/dL Magnesium (1.8-2.4) mg/dl C-Reactive Protein (<1.0) mg/dL Blood Type Gel Antibody Screen Crossmatch 07/05/20 07/05/20 Range/Units 05:25 07:09 WBC (4.23-9.07) K/mm3 RBC (4.63-6.08) M/mm3 Hgb (13.7-17.5) gm/dl Hct (40.1-51.0) % MCV (79.0-92.2) fl MCH (25.7-32.2) pg MCHC (32.2-35.5) g/dl RDW Std Deviation (35.1-43.9) fL Plt Count (163-337) K/mm3 MPV (9.4-12.3) fl Neut % (Auto) (34.0-67.9) % Lymph % (Auto) (21.8-53.1) % [place] % (Auto) (5.3-12.2) % Eos % (Auto) (0.8-7.0) Baso % (Auto) (0.1-1.2) % Neut # (Auto) (1.78-5.38) K/mm3 Lymph # (Auto) (1.32-3.57) K/mm3 [place] # (Auto) (0.30-0.82) K/mm3 Eos # (Auto) (0.04-0.54) K/mm3 Baso # (Auto) (0.01-0.08) K/mm3 Manual Slide Review Sodium 137 (136-145) mEq/L Potassium 4.5 (3.5-5.1) mEq/L Chloride 102 (98-107) mEq/L Carbon Dioxide 26 (21-32) mEq/L Anion Gap 13.5 (5-15) BUN 38 H (7-18) mg/dL Creatinine 1.0 (0.7-1.3) mg/dL Est Cr Clr Drug Dosing 67.93 mL/min Estimated GFR (MDRD) > 60 (>60) mL/min BUN/Creatinine Ratio 38.0 H (14-18) Glucose 143 H (83-115) mg/dL POC Glucose 131 H (83-110) mg/dL Calcium 8.4 L (8.5-10.1) mg/dL Magnesium 1.8 (1.8-2.4) mg/dl C-Reactive Protein (<1.0) mg/dL Blood Type Gel Antibody Screen Crossmatch Phil Results Last 24 Hours: Microbiology 06/30/20 15:05 Aerobic Blood Culture - Preliminary Blood NO GROWTH AFTER 4 DAYS Anaerobic Blood Culture - Preliminary NO GROWTH AFTER 4 DAYS 06/30/20 15:11 Aerobic Blood Culture - Final Blood - Venous Pseudo Aeruginosa Anaerobic Blood Culture - Preliminary Streptococcus Salivarius 07/03/20 07:18 Aerobic Blood Culture - Preliminary Blood - Venous NO GROWTH AFTER 1 DAY Anaerobic Blood Culture - Preliminary NO GROWTH AFTER 1 DAY 07/03/20 07:10 Aerobic Blood Culture - Preliminary Blood - Venous - Lab Draw NO GROWTH AFTER 1 DAY Anaerobic Blood Culture - Preliminary NO GROWTH AFTER 1 DAY Med Orders - Current: Current Medications Acetaminophen (Tylenol) 650 mg PO Q4H PRN PRN Reason: Pain (Mild 1-3)/fever Last Admin: 07/05/20 00:23 Dose: 650 mg Documented by: Acetaminophen (Tylenol) 650 mg RECTAL Q4H PRN PRN Reason: Pain (mild 1-3) Hydrocodone Bitart/Acetaminophen ([place] 325-5 Mg) 1 tab PO Q4H PRN PRN Reason: Pain (moderate 4-6) Albuterol/Ipratropium (Duoneb 3.0-0.5 Mg/3 Ml) 3 ml NEB Q4H PRN PRN Reason: Shortness Of Breath/wheezing Amlodipine Besylate (Norvasc) 5 mg PO DAILY [facility] Cholecalciferol (Vitamin D3) 25 mcg PO DAILY [facility] Last Admin: 07/04/20 08:32 Dose: 25 mcg Documented by: Cyclosporine (Modified) (Neoral) 600 mg PO DAILY [facility] Last Admin: 07/04/20 08:37 Dose: 600 mg Documented by: Cyclosporine (Modified) (Neoral) 700 mg PO BEDTIME [facility] Last Admin: 07/04/20 21:13 Dose: 700 mg Documented by: Doxazosin Mesylate (Cardura) 4 mg PO BEDTIME [facility] Last Admin: 07/04/20 21:14 Dose: 4 mg Documented by: Famotidine (Pepcid) 20 mg PO DAILY [facility] Last Admin: 07/04/20 08:32 Dose: 20 mg Documented by: Hydralazine HCl (Apresoline) 20 mg IVPUSH Q4H PRN PRN Reason: Hypertension Last Admin: 07/05/20 03:58 Dose: 20 mg Documented by: Hydromorphone HCl (Dilaudid) 0.25 mg IVPUSH Q2H PRN PRN Reason: Pain (severe 7-10) Promethazine HCl 12.5 mg/ (Sodium Chloride) 50.5 mls @ 100 mls/hr IV Q6H PRN PRN Reason: Nausea/Vomiting Cefepime HCl 2 gm/ Premix 50 mls @ 100 mls/hr IV Q8H [facility] Last Admin: 07/04/20 23:49 Dose: 100 mls/hr Documented by: Sodium Chloride (Normal Saline) 250 mls @ 50 mls/hr IV ASDIRECTED [facility] Ibuprofen (Motrin) 600 mg PO Q6H PRN PRN Reason: Pain (moderate 4-6) Last Admin: 06/30/20 21:40 Dose: 600 mg Documented by: Insulin Glargine (Lantus) 12 unit SUBCUT BID@0700,1700 [facility] Last Admin: 07/04/20 18:05 Dose: 12 units Documented by: Insulin Human Lispro (Humalog) 0 unit SUBCUT TIDAC [facility]; Protocol Last Admin: 07/04/20 18:06 Dose: 4 units Documented by: Magnesium Oxide (Magnesium Oxide) 400 mg PO BID [facility] Last Admin: 07/04/20 21:12 Dose: 400 mg Documented by: Ondansetron HCl (Zofran) 4 mg IV Q6H PRN PRN Reason: Nausea/Vomiting Pitavastatin Calcium ([Livalo] 1 Mg) 0 each PO DAILY [facility] Last Admin: 07/04/20 11:12 Dose: Not Given Documented by: Polyethylene Glycol (Miralax) 17 gm PO DAILY PRN PRN Reason: Constipation Prednisone (Prednisone) 120 mg PO DAILY [facility] Last Admin: 07/04/20 08:33 Dose: 120 mg Documented by: Prednisone (Prednisone) 5 mg PO DAILY [facility] Last Admin: 07/04/20 08:32 Dose: 5 mg Documented by: Senna/Docusate Sodium (Senna Plus) 1 tab PO BID PRN PRN Reason: Constipation Tbo-Filgrastim (Granix) 650 mcg SQ DAILY [facility] Last Admin: 07/04/20 08:48 Dose: 650 mcg Documented by: Zolpidem Tartrate (Ambien) 5 mg PO BEDTIME PRN PRN Reason: Sleep Last Admin: 07/04/20 01:28 Dose: 5 mg Documented by: Discontinued Medications Amlodipine Besylate (Norvasc) 5 mg PO DAILY [facility] Last Admin: 07/02/20 09:16 Dose: Not Given Documented by: Carvedilol (Coreg) 25 mg PO BID [facility] Last Admin: 07/02/20 08:51 Dose: 12.5 mg Documented by: Carvedilol (Coreg) 12.5 mg PO BID [facility] Last Admin: 07/03/20 11:33 Dose: Not Given Documented by: Sodium Chloride (Normal Saline) 1,000 mls @ 100 mls/hr IV ASDIRECTED [facility] Stop: 07/01/20 00:44 Last Admin: 06/30/20 21:40 Dose: 100 mls/hr Documented by: Cefepime HCl 1 gm/ Premix 50 mls @ 100 mls/hr IV Q12H [facility] Last Admin: 06/30/20 20:17 Dose: 100 mls/hr Documented by: Acyclovir 730 mg/ Sodium (Chloride) 264.6 mls @ 130 mls/hr IV Q8H [facility] Last Admin: 07/02/20 01:15 Dose: 130 mls/hr Documented by: Micafungin Sodium 100 mg/ (Sodium Chloride) 100 mls @ 100 mls/hr IV Q24H [facility] Last Admin: 07/01/20 17:09 Dose: 100 mls/hr Documented by: Lactated Ringer's (Ringers, Lactated) 1,000 mls @ 999 mls/hr IV BOLUS [facility] Stop: 07/02/20 17:15 Last Admin: 06/30/20 20:21 Dose: 999 mls/hr Documented by: Magnesium Sulfate (Magnesium Sulfate In Water Premix) 2 gm in 50 mls @ 25 mls/hr IV ONETIME ONE Stop: 06/30/20 19:59 Last Admin: 06/30/20 17:22 Dose: 25 mls/hr Documented by: Sodium Chloride (Normal Saline) 250 mls @ 50 mls/hr IV ASDIRECTED [facility] Magnesium Sulfate/Dextrose 1 (gm/ Premix) 100 mls @ 100 mls/hr IV ONETIME ONE Stop: 07/02/20 08:06 Last Admin: 07/02/20 08:37 Dose: 100 mls/hr Documented by: Magnesium Sulfate (Magnesium Sulfate In Water Premix) 2 gm in 50 mls @ 25 mls/hr IV ONETIME ONE Stop: 07/03/20 12:59 Last Admin: 07/03/20 11:28 Dose: 25 mls/hr Documented by: Magnesium Sulfate 4 gm/ Premix 50 mls @ 12.5 mls/hr IV ONETIME ONE Stop: 07/04/20 11:52 Last Admin: 07/04/20 09:36 Dose: 12.5 mls/hr Documented by: Insulin Glargine (Lantus) 10 unit SUBCUT BIDAC [facility] Last Admin: 07/02/20 11:46 Dose: Not Given Documented by: Insulin Glargine (Lantus) 10 unit SUBCUT BID@0700,1700 [facility] Last Admin: 07/04/20 08:37 Dose: 6 units Documented by: Losartan Potassium (Cozaar) 50 mg PO DAILY [facility] Last Admin: 07/02/20 09:16 Dose: Not Given Documented by: Non-Formulary Medication (Cyclosporine [Cyclosporine]) 600 mg PO DAILY [facility] Non-Formulary Medication (Cyclosporine [Cyclosporine]) 700 mg PO BEDTIME [facility] Non-Formulary Medication (Prednisone [Prednisone]) 125 mg PO DAILY [facility] - Exam Quality Assessment: No: Supplemental Oxygen, Urine Catheter General: Alert, Oriented, Cooperative, No Acute Distress, Other (Obese) HEENT: Pupils Equal, Pupils Reactive, EOMI, Mucous Membr. Moist/[place] Neck: Supple Lungs: Clear to Auscultation, Normal Respiratory Effort Cardiovascular: Regular Rate, Regular Rhythm GI/Abdominal Exam: Normal Bowel Sounds, Soft, Non-Tender, No Organomegaly, No Distention, No Abnormal Bruit, No Mass, Other (Obese) (Male) Exam: Deferred Back Exam: Normal Inspection, Decreased Range of Motion Extremities: Normal Inspection, Normal Range of Motion, Non-Tender, No Pedal Edema, Normal Capillary Refill Peripheral Pulses: 2+: Dorsalis Pedis (L), Dorsalis Pedis (R) Skin: Warm, Dry, Intact Neurological: No New Focal Deficit, Normal Gait Psy/Mental Status: Alert, Normal Affect, Normal Mood Sepsis Event Note - Evaluation Sepsis Screening Result: No Definite Risk - Focused Exam Vital Signs: Vital Signs Temp Pulse Resp BP BP Pulse Ox 07/05/20 04:10 59 L 131/77 94 L 07/05/20 03:38 163/96 H 07/05/20 03:36 156/127 H 07/04/20 23:50 36.9 C 64 16 153/111 H 93 L 07/04/20 22:33 138/85 07/04/20 22:15 161/102 H 161/102 H 07/04/20 21:16 176/90 H 07/04/20 21:14 176/60 H 07/04/20 20:20 36.6 C 57 L 20 152/105 H 91 L - Problem List Review Problem List Initiated/Reviewed/Updated: Yes - My Orders Last 24 Hours: My Active Orders 07/04/20 07:51 Blood Transfusion Reflex Orders [OM.PC] Routine 07/04/20 08:11 Transfuse Red Blood Cells [COMM] Routine 07/04/20 17:00 Insulin Glarg,Human.Rec.Analog [LantUS] 12 unit SUBCUT BID@0700,1700 07/04/20 21:00 Magnesium Oxide 400 mg PO BID 07/05/20 09:00 amLODIPine [Norvasc] 5 mg PO DAILY 07/06/20 05:11 BMP [BASIC METABOLIC PANEL,BMP] [CHEM] AM CBC WITH AUTO DIFF [HEME] AM MAGNESIUM [CHEM] AM 07/06/20 08:30 CYCLOSPORINE BY IMMUNOASSAY [REF] Routine 07/07/20 05:11 BMP [BASIC METABOLIC PANEL,BMP] [CHEM] AM CBC WITH AUTO DIFF [HEME] AM MAGNESIUM [CHEM] AM - Plan Plan:: This is a 74 yo elderly white male with past medical hx/o COVID 19 Infection and Aplastic Anemia S/p BM biopsy 2 weeks currently on chemotherapy with Anti Thymocyte Globulin, Cyclosporines, Methylprednisolone as well Filgrastin (Zarxio), and Obesity who comes to us as a direct admit from the clinic for further management for Severe Neutropenia and Community Acquired Pneumonia diagnosed at the clinic today while he was being seen for routine follow up labs. Assessment: Acute: Sepsis secondary to community acquired pneumonia Bacteremia secondary to Pseudomonas aeruginosa and Streptococcus salivarius Severe neutropenia with ANC of 0, WBC drops to 0.90 today Pancytopenia: Moderate anemia, Severe neutropenia, Severe thrombocytopenia and Relative lymphocytosis via BM * Hgb 7 grams yesterday and received 2 units of PRBC at the clinic; Hgb today is 9.1 grams status post 2 units of packed red blood cells transfusion * Platelet today is 12K status post 1 unit of platelet transfusion * Cut off: infuse blood if symptomatic and Platelet if < 10K or < 20K with active bleeding/fever per Oncology provider * Repeat preliminary blood culture so far is negative after 24 hours * Resume isolation protocol to drop in WBC level at 0.90 * He continues to improve clinically Aplastic Anemia currently on chemotherapy: cyclosporin, steroid, and zarxio (will continue regimen) S/p BM Biopsy : * Hypocellular marrow with markedly decreased trilineage hematopoiesis. No increased blasts. Relative lymphohistiocytic hyperplasia with plasmacytosis. * Deemed ineligible for transplant from note obtained at the clinic Right Middle Lobe PNA * No shortness of breath or cough * He is on RA * Repeat chest x-ray on 07/01/2020: increased density within previously right lower lobe pneumonia * Continue IV Cefepime 2 grams Q8H Hx/o Covid -19 Infection in Nov Hyperglycemia, improved * Due to new onset of diabetes * Carries no hx/o Diabetes or Glucose Intolerance * However he has been on steroid * A1C of 7.10 * Continue Accu-check TIDAC with ISS and will change Lantus to 12 units subQ BID * Diabetic education Hypocalcemia * Non corrected Ca level of 8.4-->8.1-->8.3 * Calcium is 9.5 mg/dL * Continue to monitor Hypomagnesemia, improved * Mg of 1.6-->1.8-->1.5-->1.7-->1.8 * Likely due to inadequate intake * Continue to replete * We will start him on oral supplement starting tonight Mildly Elevated T. Bilirubin of 1.3 Elevated CRP of 11.6-->13.4-->12.8-->5.2, improving Hypoalbuminemia with Albumin of 2.5 Hypertension, not controlled * Carvedilol on hold * Start Norvasc 5 mg po daily * PRN IV Hydralazine Q6H Bradycardia with Pauses, improved * HR in the 50s * He takes 12.5 mg po BID of carvedilol-on hold * 2D echo: unremarkable Class III Obese * BMI of 40.7 * Program Advisor's consult for weight management Resolved: Lactic Acidosis, resolved * LA of 4.0-->now 2.0 * Likely from underlying sepsis * Volume resuscitation Chronic: Aplastic Anemia, S/p BM Biopsy and Morbid Obesity Plan: Continue current treatment. Routine AM Labs. Continue IV Cefepime 1 gram Q8H. DVT/GI prophylaxis: SCDs due to low platelet level and H2B. PT/OT when appropriate. Continue to avoid ASA and Anticoagulations. Code status is full. Prognosis is good. LOS > 96 hrs pending repeat blood cultures for at least 48hrs and stable Hgb and platelet levels.
[2020-07-05] MEDS: Insulin Glarg,Human.Rec.Analog 100 Unit/ML SUBCUT SCH ×2 (08:05→17:20)
[2020-07-05] MEDS: Cefepime 2 GM in Premix Bag 1 BAG IV SCH ×2 (08:06→17:20)
[2020-07-05] MEDS: Magnesium Oxide 400 MG Tab PO SCH ×2 (08:07→20:50)
[2020-07-05] MEDS: Cholecalciferol (Vitamin D3) 25 MCG Tab PO SCH (08:08)
[2020-07-05] MEDS: predniSONE 5 MG Tab PO SCH (08:08)
[2020-07-05] MEDS: amLODIPine 5 MG Tab PO SCH (08:08)
[2020-07-05] MEDS: Famotidine 20 MG Tab PO SCH (08:08)
[2020-07-05] MEDS: predniSONE 20 MG Tab PO SCH (08:08)
[2020-07-05] MEDS: PITAVASTATIN CALCIUM 1 MG PO SCH (08:26)
[2020-07-05] MEDS: Doxazosin 4 MG Tab PO SCH (20:49)
[2020-07-06] MEDS: Cefepime 2 GM in Premix Bag 1 BAG IV SCH ×3 (00:05→17:38)
[2020-07-06] MEDS: hydrALAZINE 20 MG/ML SDV IVPUSH PRN ×2 (05:58→21:50)
[2020-07-06] MEDS ORDERED: Insulin Glarg,Human.Rec.Analog 100 Unit/ML SUBCUT ONE (09:30)
[2020-07-06] MEDS: amLODIPine 5 MG Tab PO SCH (09:38)
[2020-07-06] MEDS: Famotidine 20 MG Tab PO SCH (09:39)
[2020-07-06] MEDS: predniSONE 5 MG Tab PO SCH (09:39)
[2020-07-06] MEDS: predniSONE 20 MG Tab PO SCH (09:39)
[2020-07-06] MEDS: Magnesium Oxide 400 MG Tab PO SCH ×2 (09:40→20:32)
[2020-07-06] MEDS: Cholecalciferol (Vitamin D3) 25 MCG Tab PO SCH (09:40)
[2020-07-06] MEDS: PITAVASTATIN CALCIUM 1 MG PO SCH (09:41)
[2020-07-06] MEDS: Insulin Glarg,Human.Rec.Analog 100 Unit/ML SUBCUT SCH ×2 (09:41→17:38)
[2020-07-06] MEDS ORDERED: Magnesium Sulfate/Water 4 GM in Premix Bag 1 BAG IV ONE (10:50)
--- NOTE | 2020-07-06 10:51 | PCM.PN ---
- General Info Date of Service: 07/06/20 Admission Dx/Problem (Free Text): Severe Neutropenia Subjective Update: Patient states he is feeling well without any complaints. Denies any pain including bone pain. Appetite is good. Functional Status: Reports: Pain Controlled - Review of Systems General: Reports: No Symptoms HEENT: Reports: No Symptoms Pulmonary: Reports: No Symptoms Cardiovascular: Reports: No Symptoms Gastrointestinal: Reports: No Symptoms Genitourinary: Reports: No Symptoms Musculoskeletal: Reports: No Symptoms - Patient Data Vitals - Most Recent: Last Vital Signs Temp 97.5 F 07/06/20 07:42 Pulse 59 L 07/06/20 07:42 Resp 18 07/06/20 07:42 BP 128/68 07/06/20 09:38 Pulse Ox 95 07/06/20 07:42 Weight - Most Recent: 282 lb 8 oz I&O - Last 24 Hours: Intake & Output 07/05/20 07/06/20 07/06/20 22:59 06:59 14:59 Intake Total 1040 550 Output Total 1050 700 Balance -10 -150 Lab Results Last 24 Hours: Laboratory Results - last 24 hr 07/05/20 07/05/20 07/06/20 Range/Units 11:15 16:59 06:20 WBC (4.23-9.07) K/mm3 RBC (4.63-6.08) M/mm3 Hgb (13.7-17.5) gm/dl Hct (40.1-51.0) % MCV (79.0-92.2) fl MCH (25.7-32.2) pg MCHC (32.2-35.5) g/dl RDW Std Deviation (35.1-43.9) fL Plt Count (163-337) K/mm3 Neut % (Auto) (34.0-67.9) % Lymph % (Auto) (21.8-53.1) % [place] % (Auto) (5.3-12.2) % Eos % (Auto) (0.8-7.0) Baso % (Auto) (0.1-1.2) % Neut # (Auto) (1.78-5.38) K/mm3 Lymph # (Auto) (1.32-3.57) K/mm3 [place] # (Auto) (0.30-0.82) K/mm3 Eos # (Auto) (0.04-0.54) K/mm3 Baso # (Auto) (0.01-0.08) K/mm3 Manual Slide Review Sodium (136-145) mEq/L Potassium (3.5-5.1) mEq/L Chloride (98-107) mEq/L Carbon Dioxide (21-32) mEq/L Anion Gap (5-15) BUN (7-18) mg/dL Creatinine (0.7-1.3) mg/dL Est Cr Clr Drug Dosing mL/min Estimated GFR (MDRD) (>60) mL/min BUN/Creatinine Ratio (14-18) Glucose (83-115) mg/dL POC Glucose 131 H 198 H 111 H (83-110) mg/dL Calcium (8.5-10.1) mg/dL Magnesium (1.8-2.4) mg/dl 07/06/20 07/06/20 Range/Units 08:30 08:30 WBC 1.66 L* (4.23-9.07) K/mm3 RBC 3.15 L (4.63-6.08) M/mm3 Hgb 9.3 L (13.7-17.5) gm/dl Hct 27.3 L (40.1-51.0) % MCV 86.7 (79.0-92.2) fl MCH 29.5 (25.7-32.2) pg MCHC 34.1 (32.2-35.5) g/dl RDW Std Deviation 46.9 H (35.1-43.9) fL Plt Count 7 L* (163-337) K/mm3 Neut % (Auto) 2.4 L (34.0-67.9) % Lymph % (Auto) 96.4 H (21.8-53.1) % [place] % (Auto) 0.6 L (5.3-12.2) % Eos % (Auto) 0 L (0.8-7.0) Baso % (Auto) 0.0 L (0.1-1.2) % Neut # (Auto) 0.04 L (1.78-5.38) K/mm3 Lymph # (Auto) 1.60 (1.32-3.57) K/mm3 [place] # (Auto) 0.01 L (0.30-0.82) K/mm3 Eos # (Auto) 0.00 L (0.04-0.54) K/mm3 Baso # (Auto) 0.00 L (0.01-0.08) K/mm3 Manual Slide Review Abnormal smear Sodium 136 (136-145) mEq/L Potassium 4.1 (3.5-5.1) mEq/L Chloride 102 (98-107) mEq/L Carbon Dioxide 27 (21-32) mEq/L Anion Gap 11.1 (5-15) BUN 46 H (7-18) mg/dL Creatinine 1.2 (0.7-1.3) mg/dL Est Cr Clr Drug Dosing 56.61 mL/min Estimated GFR (MDRD) 59 (>60) mL/min BUN/Creatinine Ratio 38.3 H (14-18) Glucose 154 H (83-115) mg/dL POC Glucose (83-110) mg/dL Calcium 8.5 (8.5-10.1) mg/dL Magnesium 1.7 L (1.8-2.4) mg/dl Phil Results Last 24 Hours: Microbiology 06/30/20 15:11 Aerobic Blood Culture - Final Blood - Venous Pseudo Aeruginosa Anaerobic Blood Culture - Final Streptococcus Salivarius 07/03/20 07:18 Aerobic Blood Culture - Preliminary Blood - Venous NO GROWTH AFTER 3 DAYS Anaerobic Blood Culture - Preliminary NO GROWTH AFTER 3 DAYS 07/03/20 07:10 Aerobic Blood Culture - Preliminary Blood - Venous - Lab Draw NO GROWTH AFTER 3 DAYS Anaerobic Blood Culture - Preliminary NO GROWTH AFTER 3 DAYS 06/30/20 15:05 Aerobic Blood Culture - Preliminary Blood NO GROWTH AFTER 5 DAYS Anaerobic Blood Culture - Preliminary NO GROWTH AFTER 5 DAYS Med Orders - Current: Current Medications Acetaminophen (Tylenol) 650 mg PO Q4H PRN PRN Reason: Pain (Mild 1-3)/fever Last Admin: 07/05/20 00:23 Dose: 650 mg Documented by: Acetaminophen (Tylenol) 650 mg RECTAL Q4H PRN PRN Reason: Pain (mild 1-3) Hydrocodone Bitart/Acetaminophen ([place] 325-5 Mg) 1 tab PO Q4H PRN PRN Reason: Pain (moderate 4-6) Albuterol/Ipratropium (Duoneb 3.0-0.5 Mg/3 Ml) 3 ml NEB Q4H PRN PRN Reason: Shortness Of Breath/wheezing Amlodipine Besylate (Norvasc) 5 mg PO DAILY [facility] Last Admin: 07/06/20 09:38 Dose: 5 mg Documented by: Cholecalciferol (Vitamin D3) 25 mcg PO DAILY [facility] Last Admin: 07/06/20 09:40 Dose: 25 mcg Documented by: Cyclosporine (Modified) (Neoral) 600 mg PO DAILY [facility] Last Admin: 07/05/20 08:09 Dose: 600 mg Documented by: Cyclosporine (Modified) (Neoral) 700 mg PO BEDTIME [facility] Last Admin: 07/05/20 20:57 Dose: 700 mg Documented by: Doxazosin Mesylate (Cardura) 4 mg PO BEDTIME [facility] Last Admin: 07/05/20 20:49 Dose: 4 mg Documented by: Famotidine (Pepcid) 20 mg PO DAILY [facility] Last Admin: 07/06/20 09:39 Dose: 20 mg Documented by: Hydralazine HCl (Apresoline) 20 mg IVPUSH Q4H PRN PRN Reason: Hypertension Last Admin: 07/06/20 05:58 Dose: 20 mg Documented by: Hydromorphone HCl (Dilaudid) 0.25 mg IVPUSH Q2H PRN PRN Reason: Pain (severe 7-10) Promethazine HCl 12.5 mg/ (Sodium Chloride) 50.5 mls @ 100 mls/hr IV Q6H PRN PRN Reason: Nausea/Vomiting Cefepime HCl 2 gm/ Premix 50 mls @ 100 mls/hr IV Q8H [facility] Last Admin: 07/06/20 09:36 Dose: 100 mls/hr Documented by: Sodium Chloride (Normal Saline) 250 mls @ 50 mls/hr IV ASDIRECTED [facility] Last Admin: 07/04/20 17:31 Dose: 50 mls/hr Documented by: Magnesium Sulfate 4 gm/ Premix 50 mls @ 12.5 mls/hr IV ONETIME ONE Stop: 07/06/20 14:49 Ibuprofen (Motrin) 600 mg PO Q6H PRN PRN Reason: Pain (moderate 4-6) Last Admin: 06/30/20 21:40 Dose: 600 mg Documented by: Insulin Glargine (Lantus) 12 unit SUBCUT BID@0700,1700 [facility] Last Admin: 07/06/20 09:41 Dose: Not Given Documented by: Insulin Human Lispro (Humalog) 0 unit SUBCUT TIDAC [facility]; Protocol Last Admin: 07/06/20 09:40 Dose: Not Given Documented by: Magnesium Oxide (Magnesium Oxide) 400 mg PO BID [facility] Last Admin: 07/06/20 09:40 Dose: 400 mg Documented by: Ondansetron HCl (Zofran) 4 mg IV Q6H PRN PRN Reason: Nausea/Vomiting Pitavastatin Calcium ([Livalo] 1 Mg) 0 each PO DAILY [facility] Last Admin: 07/06/20 09:41 Dose: Not Given Documented by: Polyethylene Glycol (Miralax) 17 gm PO DAILY PRN PRN Reason: Constipation Prednisone (Prednisone) 120 mg PO DAILY [facility] Last Admin: 07/06/20 09:39 Dose: 120 mg Documented by: Prednisone (Prednisone) 5 mg PO DAILY [facility] Last Admin: 07/06/20 09:39 Dose: 5 mg Documented by: Senna/Docusate Sodium (Senna Plus) 1 tab PO BID PRN PRN Reason: Constipation Last Admin: 07/05/20 20:50 Dose: 1 tab Documented by: Tbo-Filgrastim (Granix) 650 mcg SQ DAILY [facility] Last Admin: 07/05/20 08:09 Dose: 650 mcg Documented by: Zolpidem Tartrate (Ambien) 5 mg PO BEDTIME PRN PRN Reason: Sleep Last Admin: 07/04/20 01:28 Dose: 5 mg Documented by: Discontinued Medications Amlodipine Besylate (Norvasc) 5 mg PO DAILY [facility] Last Admin: 07/02/20 09:16 Dose: Not Given Documented by: Carvedilol (Coreg) 25 mg PO BID [facility] Last Admin: 07/02/20 08:51 Dose: 12.5 mg Documented by: Carvedilol (Coreg) 12.5 mg PO BID [facility] Last Admin: 07/03/20 11:33 Dose: Not Given Documented by: Sodium Chloride (Normal Saline) 1,000 mls @ 100 mls/hr IV ASDIRECTED [facility] Stop: 07/01/20 00:44 Last Admin: 06/30/20 21:40 Dose: 100 mls/hr Documented by: Cefepime HCl 1 gm/ Premix 50 mls @ 100 mls/hr IV Q12H [facility] Last Admin: 06/30/20 20:17 Dose: 100 mls/hr Documented by: Acyclovir 730 mg/ Sodium (Chloride) 264.6 mls @ 130 mls/hr IV Q8H [facility] Last Admin: 07/02/20 01:15 Dose: 130 mls/hr Documented by: Micafungin Sodium 100 mg/ (Sodium Chloride) 100 mls @ 100 mls/hr IV Q24H [facility] Last Admin: 07/01/20 17:09 Dose: 100 mls/hr Documented by: Lactated Ringer's (Ringers, Lactated) 1,000 mls @ 999 mls/hr IV BOLUS [facility] Stop: 07/02/20 17:15 Last Admin: 06/30/20 20:21 Dose: 999 mls/hr Documented by: Magnesium Sulfate (Magnesium Sulfate In Water Premix) 2 gm in 50 mls @ 25 mls/hr IV ONETIME ONE Stop: 06/30/20 19:59 Last Admin: 06/30/20 17:22 Dose: 25 mls/hr Documented by: Sodium Chloride (Normal Saline) 250 mls @ 50 mls/hr IV ASDIRECTED [facility] Magnesium Sulfate/Dextrose 1 (gm/ Premix) 100 mls @ 100 mls/hr IV ONETIME ONE Stop: 07/02/20 08:06 Last Admin: 07/02/20 08:37 Dose: 100 mls/hr Documented by: Magnesium Sulfate (Magnesium Sulfate In Water Premix) 2 gm in 50 mls @ 25 mls/hr IV ONETIME ONE Stop: 07/03/20 12:59 Last Admin: 07/03/20 11:28 Dose: 25 mls/hr Documented by: Magnesium Sulfate 4 gm/ Premix 50 mls @ 12.5 mls/hr IV ONETIME ONE Stop: 07/04/20 11:52 Last Admin: 07/04/20 09:36 Dose: 12.5 mls/hr Documented by: Insulin Glargine (Lantus) 10 unit SUBCUT BIDAC [facility] Last Admin: 07/02/20 11:46 Dose: Not Given Documented by: Insulin Glargine (Lantus) 10 unit SUBCUT BID@0700,1700 [facility] Last Admin: 07/04/20 08:37 Dose: 6 units Documented by: Insulin Glargine (Lantus) 12 unit SUBCUT ONETIME ONE Stop: 07/06/20 09:31 Last Admin: 07/06/20 09:35 Dose: 12 units Documented by: Insulin Human Lispro (Humalog) 0 unit SUBCUT ONETIME ONE; Protocol Stop: 07/06/20 09:31 Last Admin: 07/06/20 09:34 Dose: 2 units Documented by: Losartan Potassium (Cozaar) 50 mg PO DAILY [facility] Last Admin: 07/02/20 09:16 Dose: Not Given Documented by: Non-Formulary Medication (Cyclosporine [Cyclosporine]) 600 mg PO DAILY [facility] Non-Formulary Medication (Cyclosporine [Cyclosporine]) 700 mg PO BEDTIME [facility] Non-Formulary Medication (Prednisone [Prednisone]) 125 mg PO DAILY [facility] - Exam Quality Assessment: No: Supplemental Oxygen General: Alert, Oriented HEENT: Pupils Equal, Mucous Membr. Moist/[place] Neck: Supple Lungs: Clear to Auscultation, Normal Respiratory Effort Cardiovascular: Regular Rate, Regular Rhythm GI/Abdominal Exam: Normal Bowel Sounds, Soft, Non-Tender, No Distention Extremities: Normal Inspection, Normal Range of Motion, Non-Tender, No Pedal Edema, Normal Capillary Refill Skin: Warm, Dry, Intact, Other (Small areas of petechia on his upper chest and back.) Psy/Mental Status: Alert, Normal Affect, Normal Mood Sepsis Event Note - Evaluation Sepsis Screening Result: No Definite Risk - Focused Exam Vital Signs: Vital Signs Temp Pulse Resp BP BP Pulse Ox 07/06/20 09:38 128/68 07/06/20 07:42 97.5 F 59 L 18 95 07/06/20 06:52 128/68 07/06/20 05:50 170/90 H 07/06/20 05:29 97.5 F 56 L 20 94 L 07/06/20 00:06 98.6 F 58 L 18 133/87 93 L - Problem List & Annotations (1) Pneumonia SNOMED Code(s): 400683131 Code(s): J18.9 - PNEUMONIA, UNSPECIFIED ORGANISM Status: Acute Current Visit: Yes (2) Aplastic anemia SNOMED Code(s): 186336992 Code(s): D61.9 - APLASTIC ANEMIA, UNSPECIFIED Status: Acute Current Visit: Yes (3) Severe neutropenia SNOMED Code(s): 482959297 Code(s): D70.9 - NEUTROPENIA, UNSPECIFIED Status: Acute Current Visit: Yes (4) Pancytopenia SNOMED Code(s): 465532826 Code(s): D61.818 - OTHER PANCYTOPENIA Status: Acute Current Visit: No - Problem List Review Problem List Initiated/Reviewed/Updated: Yes - My Orders Last 24 Hours: My Active Orders 07/06/20 09:14 PLATELETS [facility] [BBK] Routine Transfuse Platelets [COMM] Routine 07/06/20 10:50 Magnesium Sulfate/Water [Magnesium Sulfate in Water Premix] 4 gm Premix Bag 1 bag IV ONETIME - Plan Plan:: This is a 74 yo elderly white male with past medical hx/o COVID 19 Infection and Aplastic Anemia S/p BM biopsy 2 weeks currently on chemotherapy with Anti Thymocyte Globulin, Cyclosporines, Methylprednisolone as well Filgrastin (Zarxio), and Obesity who comes to us as a direct admit from the clinic for further management for Severe Neutropenia and Community Acquired Pneumonia diagnosed at the clinic today while he was being seen for routine follow up labs. Assessment: Acute: Sepsis secondary to community acquired pneumonia Bacteremia secondary to Pseudomonas aeruginosa and Streptococcus salivarius Severe neutropenia with ANC of 0, WBC drops to 0.90 today Pancytopenia: Moderate anemia, Severe neutropenia, Severe thrombocytopenia and Relative lymphocytosis via BM * Hgb 7 grams yesterday and received 2 units of PRBC at the clinic; Hgb today is 9.1 grams status post 2 units of packed red blood cells transfusion * Platelet today is 12K status post 1 unit of platelet transfusion * Cut off: infuse blood if symptomatic and Platelet if < 10K or < 20K with active bleeding/fever per Oncology provider * Repeat preliminary blood culture so far is negative after 24 hours * Resume isolation protocol to drop in WBC level at 0.90 * He continues to improve clinically Aplastic Anemia currently on chemotherapy: cyclosporin, steroid, and zarxio (will continue regimen) S/p BM Biopsy : * Hypocellular marrow with markedly decreased trilineage hematopoiesis. No increased blasts. Relative lymphohistiocytic hyperplasia with plasmacytosis. * Deemed ineligible for transplant from note obtained at the clinic Right Middle Lobe PNA * No shortness of breath or cough * He is on RA * Repeat chest x-ray on 07/01/2020: increased density within previously right lower lobe pneumonia * Continue IV Cefepime 2 grams Q8H Hx/o Covid -19 Infection in Nov Hyperglycemia, improved * Due to new onset of diabetes * Carries no hx/o Diabetes or Glucose Intolerance * However he has been on steroid * A1C of 7.10 * Continue Accu-check TIDAC with ISS and will change Lantus to 12 units subQ BID * Diabetic education Hypocalcemia * Non corrected Ca level of 8.4-->8.1-->8.3 * Calcium is 9.5 mg/dL * Continue to monitor Hypomagnesemia, improved * Mg of 1.6-->1.8-->1.5-->1.7-->1.8 * Likely due to inadequate intake * Continue to replete * We will start him on oral supplement starting tonight Mildly Elevated T. Bilirubin of 1.3 Elevated CRP of 11.6-->13.4-->12.8-->5.2, improving Hypoalbuminemia with Albumin of 2.5 Hypertension, not controlled * Carvedilol on hold * Start Norvasc 5 mg po daily * PRN IV Hydralazine Q6H Bradycardia with Pauses, improved * HR in the 50s * He takes 12.5 mg po BID of carvedilol-on hold * 2D echo: unremarkable Class III Obese * BMI of 40.7 * Insemination Worker's consult for weight management Resolved: Lactic Acidosis, resolved * LA of 4.0-->now 2.0 * Likely from underlying sepsis * Volume resuscitation Chronic: Aplastic Anemia, S/p BM Biopsy and Morbid Obesity Plan: Continue current treatment. Routine AM Labs. Continue IV Cefepime 1 gram Q8H. DVT/GI prophylaxis: SCDs due to low platelet level and H2B. PT/OT when appropriate. Continue to avoid ASA and Anticoagulations. Code status is full. Prognosis is good. LOS > 96 hrs pending repeat blood cultures for at least 48hrs and stable Hgb and platelet levels. 07/06/2020 Patient continues to have severe neutropenia with an absolute neutrophil count of only 40. White count has increased, but neutrophil count did not increase correspondingly. He continues on Granix daily. Unfortunately platelets also dropped significantly down to 7. Hemoglobin is stable at 9.3. He continues to be afebrile. Renal function is slightly decreased with an estimated GFR of 59. Uneasiness low at 1.7. Blood sugars have been well controlled generally in the mid 100s. I spoke with his oncology nurse practitioner Traci White NP who stated that when he is appropriately treated for his community-acquired pneumonia he can be discharged for further follow-up with the oncology clinic for his aplastic anemia. Blood pressure is good on amlodipine 5 mg and off of his beta-harshil. Also he continues to have a significant bradycardia in the 50s even with the blood pressure medication change. Plan * Give 2 units of irradiated platelets * Continue to follow CBC * Continue Granix * Reverse precautions * Plan discharge tomorrow or the next day * Continue antibiotics for another day or possibly 2. I would like to see his absolute neutrophil count start to increase somewhat. * Bacteremia secondary to Pseudomonas aeruginosa and Streptococcus salivarius. Pseudomonas is resistant to Levaquin. * VTE prophylaxis with chemoprophylaxis is contraindicated secondary to severely low platelets. Patient does have some petechia already.
[2020-07-06] MEDS ORDERED: Sodium Chloride 0.9% 250 ML IV SCH (15:45)
[2020-07-06] MEDS: Doxazosin 4 MG Tab PO SCH (20:32)
[2020-07-07] MEDS: Cefepime 2 GM in Premix Bag 1 BAG IV SCH ×2 (00:36→08:53)
[2020-07-07] MEDS ORDERED: Magnesium Hydroxide 400 MG/5 ML Susp 30 ML Cup PO ONE (06:00)
[2020-07-07] MEDS ORDERED: Magnesium Sulfate/Water 2 GM/50 ML BAG IV ONE (08:15)
--- NOTE | 2020-07-07 08:17 | PCM.PN ---
- General Info Date of Service: 07/07/20 Admission Dx/Problem (Free Text): Severe Neutropenia - Patient Data Vitals - Most Recent: Last Vital Signs Temp 97.9 F 07/07/20 07:45 Pulse 62 07/07/20 07:45 Resp 16 07/07/20 07:45 BP 145/88 H 07/07/20 07:45 Pulse Ox 95 07/07/20 07:45 Weight - Most Recent: 280 lb 6.4 oz I&O - Last 24 Hours: Intake & Output 07/06/20 07/07/20 07/07/20 22:59 06:59 14:59 Intake Total 2490 950 Output Total 1700 Balance 2490 -750 Lab Results Last 24 Hours: Laboratory Results - last 24 hr 07/04/20 07/06/20 07/06/20 Range/Units 06:25 08:30 08:30 WBC 1.66 L* (4.23-9.07) K/mm3 RBC 3.15 L (4.63-6.08) M/mm3 Hgb 9.3 L (13.7-17.5) gm/dl Hct 27.3 L (40.1-51.0) % MCV 86.7 (79.0-92.2) fl MCH 29.5 (25.7-32.2) pg MCHC 34.1 (32.2-35.5) g/dl RDW Std Deviation 46.9 H (35.1-43.9) fL Plt Count 7 L* (163-337) K/mm3 MPV (9.4-12.3) fl Neut % (Auto) 2.4 L (34.0-67.9) % Lymph % (Auto) 96.4 H (21.8-53.1) % [place] % (Auto) 0.6 L (5.3-12.2) % Eos % (Auto) 0 L (0.8-7.0) Baso % (Auto) 0.0 L (0.1-1.2) % Neut # (Auto) 0.04 L (1.78-5.38) K/mm3 Lymph # (Auto) 1.60 (1.32-3.57) K/mm3 [place] # (Auto) 0.01 L (0.30-0.82) K/mm3 Eos # (Auto) 0.00 L (0.04-0.54) K/mm3 Baso # (Auto) 0.00 L (0.01-0.08) K/mm3 Manual Slide Review Abnormal smear Sodium 136 (136-145) mEq/L Potassium 4.1 (3.5-5.1) mEq/L Chloride 102 (98-107) mEq/L Carbon Dioxide 27 (21-32) mEq/L Anion Gap 11.1 (5-15) BUN 46 H (7-18) mg/dL Creatinine 1.2 (0.7-1.3) mg/dL Est Cr Clr Drug Dosing 56.61 mL/min Estimated GFR (MDRD) 59 (>60) mL/min BUN/Creatinine Ratio 38.3 H (14-18) Glucose 154 H (83-115) mg/dL POC Glucose (83-110) mg/dL Calcium 8.5 (8.5-10.1) mg/dL Magnesium 1.7 L (1.8-2.4) mg/dl Blood Type B POSITIVE Gel Antibody Screen Negative Crossmatch See Detail 07/06/20 07/06/20 07/07/20 Range/Units 10:55 17:04 06:00 WBC (4.23-9.07) K/mm3 RBC (4.63-6.08) M/mm3 Hgb (13.7-17.5) gm/dl Hct (40.1-51.0) % MCV (79.0-92.2) fl MCH (25.7-32.2) pg MCHC (32.2-35.5) g/dl RDW Std Deviation (35.1-43.9) fL Plt Count (163-337) K/mm3 MPV (9.4-12.3) fl Neut % (Auto) (34.0-67.9) % Lymph % (Auto) (21.8-53.1) % [place] % (Auto) (5.3-12.2) % Eos % (Auto) (0.8-7.0) Baso % (Auto) (0.1-1.2) % Neut # (Auto) (1.78-5.38) K/mm3 Lymph # (Auto) (1.32-3.57) K/mm3 [place] # (Auto) (0.30-0.82) K/mm3 Eos # (Auto) (0.04-0.54) K/mm3 Baso # (Auto) (0.01-0.08) K/mm3 Manual Slide Review Sodium (136-145) mEq/L Potassium (3.5-5.1) mEq/L Chloride (98-107) mEq/L Carbon Dioxide (21-32) mEq/L Anion Gap (5-15) BUN (7-18) mg/dL Creatinine (0.7-1.3) mg/dL Est Cr Clr Drug Dosing mL/min Estimated GFR (MDRD) (>60) mL/min BUN/Creatinine Ratio (14-18) Glucose (83-115) mg/dL POC Glucose 128 H 287 H 125 H (83-110) mg/dL Calcium (8.5-10.1) mg/dL Magnesium (1.8-2.4) mg/dl Blood Type Gel Antibody Screen Crossmatch 07/07/20 07/07/20 Range/Units 06:15 06:15 WBC 1.05 L* (4.23-9.07) K/mm3 RBC 2.92 L (4.63-6.08) M/mm3 Hgb 8.4 L (13.7-17.5) gm/dl Hct 25.5 L (40.1-51.0) % MCV 87.3 (79.0-92.2) fl MCH 28.8 (25.7-32.2) pg MCHC 32.9 (32.2-35.5) g/dl RDW Std Deviation 45.6 H (35.1-43.9) fL Plt Count 50 L (163-337) K/mm3 MPV 9.3 L (9.4-12.3) fl Neut % (Auto) 1.8 L (34.0-67.9) % Lymph % (Auto) 90.5 H (21.8-53.1) % [place] % (Auto) 2.9 L (5.3-12.2) % Eos % (Auto) 0 L (0.8-7.0) Baso % (Auto) 0.0 L (0.1-1.2) % Neut # (Auto) 0.02 L (1.78-5.38) K/mm3 Lymph # (Auto) 0.95 L (1.32-3.57) K/mm3 [place] # (Auto) 0.03 L (0.30-0.82) K/mm3 Eos # (Auto) 0.00 L (0.04-0.54) K/mm3 Baso # (Auto) 0.00 L (0.01-0.08) K/mm3 Manual Slide Review Abnormal smear Sodium 137 (136-145) mEq/L Potassium 4.6 (3.5-5.1) mEq/L Chloride 102 (98-107) mEq/L Carbon Dioxide 27 (21-32) mEq/L Anion Gap 12.6 (5-15) BUN 42 H (7-18) mg/dL Creatinine 1.0 (0.7-1.3) mg/dL Est Cr Clr Drug Dosing 67.93 mL/min Estimated GFR (MDRD) > 60 (>60) mL/min BUN/Creatinine Ratio 42.0 H (14-18) Glucose 117 H (83-115) mg/dL POC Glucose (83-110) mg/dL Calcium 8.4 L (8.5-10.1) mg/dL Magnesium 1.9 (1.8-2.4) mg/dl Blood Type Gel Antibody Screen Crossmatch Phil Results Last 24 Hours: Microbiology 07/03/20 07:18 Aerobic Blood Culture - Preliminary Blood - Venous NO GROWTH AFTER 4 DAYS Anaerobic Blood Culture - Preliminary NO GROWTH AFTER 4 DAYS 07/03/20 07:10 Aerobic Blood Culture - Preliminary Blood - Venous - Lab Draw NO GROWTH AFTER 4 DAYS Anaerobic Blood Culture - Preliminary NO GROWTH AFTER 4 DAYS 06/30/20 15:05 Aerobic Blood Culture - Preliminary Blood NO GROWTH AFTER 6 DAYS Anaerobic Blood Culture - Preliminary NO GROWTH AFTER 6 DAYS 06/30/20 15:11 Aerobic Blood Culture - Final Blood - Venous Pseudo Aeruginosa Anaerobic Blood Culture - Final Streptococcus Salivarius Med Orders - Current: Current Medications Acetaminophen (Tylenol) 650 mg PO Q4H PRN PRN Reason: Pain (Mild 1-3)/fever Last Admin: 07/05/20 00:23 Dose: 650 mg Documented by: Acetaminophen (Tylenol) 650 mg RECTAL Q4H PRN PRN Reason: Pain (mild 1-3) Hydrocodone Bitart/Acetaminophen ([place] 325-5 Mg) 1 tab PO Q4H PRN PRN Reason: Pain (moderate 4-6) Albuterol/Ipratropium (Duoneb 3.0-0.5 Mg/3 Ml) 3 ml NEB Q4H PRN PRN Reason: Shortness Of Breath/wheezing Amlodipine Besylate (Norvasc) 5 mg PO DAILY [facility] Last Admin: 07/06/20 09:38 Dose: 5 mg Documented by: Cholecalciferol (Vitamin D3) 25 mcg PO DAILY [facility] Last Admin: 07/06/20 09:40 Dose: 25 mcg Documented by: Cyclosporine (Modified) (Neoral) 600 mg PO DAILY [facility] Last Admin: 07/06/20 11:30 Dose: 600 mg Documented by: Cyclosporine (Modified) (Neoral) 700 mg PO BEDTIME [facility] Last Admin: 07/06/20 20:44 Dose: 700 mg Documented by: Doxazosin Mesylate (Cardura) 4 mg PO BEDTIME [facility] Last Admin: 07/06/20 20:32 Dose: 4 mg Documented by: Famotidine (Pepcid) 20 mg PO DAILY [facility] Last Admin: 07/06/20 09:39 Dose: 20 mg Documented by: Hydralazine HCl (Apresoline) 20 mg IVPUSH Q4H PRN PRN Reason: Hypertension Last Admin: 07/06/20 21:50 Dose: 20 mg Documented by: Hydromorphone HCl (Dilaudid) 0.25 mg IVPUSH Q2H PRN PRN Reason: Pain (severe 7-10) Promethazine HCl 12.5 mg/ (Sodium Chloride) 50.5 mls @ 100 mls/hr IV Q6H PRN PRN Reason: Nausea/Vomiting Cefepime HCl 2 gm/ Premix 50 mls @ 100 mls/hr IV Q8H [facility] Last Admin: 07/07/20 00:36 Dose: 100 mls/hr Documented by: Magnesium Sulfate (Magnesium Sulfate In Water Premix) 2 gm in 50 mls @ 25 mls/hr IV ONETIME ONE Stop: 07/07/20 10:14 Ibuprofen (Motrin) 600 mg PO Q6H PRN PRN Reason: Pain (moderate 4-6) Last Admin: 06/30/20 21:40 Dose: 600 mg Documented by: Insulin Glargine (Lantus) 12 unit SUBCUT BID@0700,1700 [facility] Last Admin: 07/06/20 17:38 Dose: 6 units Documented by: Insulin Human Lispro (Humalog) 0 unit SUBCUT TIDAC [facility]; Protocol Last Admin: 07/07/20 06:03 Dose: Not Given Documented by: Magnesium Oxide (Magnesium Oxide) 400 mg PO BID [facility] Last Admin: 07/06/20 20:32 Dose: 400 mg Documented by: Ondansetron HCl (Zofran) 4 mg IV Q6H PRN PRN Reason: Nausea/Vomiting Pitavastatin Calcium ([Livalo] 1 Mg) 0 each PO DAILY [facility] Last Admin: 07/06/20 09:41 Dose: Not Given Documented by: Polyethylene Glycol (Miralax) 17 gm PO DAILY PRN PRN Reason: Constipation Prednisone (Prednisone) 120 mg PO DAILY [facility] Last Admin: 07/06/20 09:39 Dose: 120 mg Documented by: Prednisone (Prednisone) 5 mg PO DAILY [facility] Last Admin: 07/06/20 09:39 Dose: 5 mg Documented by: Senna/Docusate Sodium (Senna Plus) 1 tab PO BID PRN PRN Reason: Constipation Last Admin: 07/06/20 20:57 Dose: 1 tab Documented by: Tbo-Filgrastim (Granix) 650 mcg SQ DAILY [facility] Last Admin: 07/06/20 12:07 Dose: Not Given Documented by: Zolpidem Tartrate (Ambien) 5 mg PO BEDTIME PRN PRN Reason: Sleep Last Admin: 07/04/20 01:28 Dose: 5 mg Documented by: Discontinued Medications Amlodipine Besylate (Norvasc) 5 mg PO DAILY [facility] Last Admin: 07/02/20 09:16 Dose: Not Given Documented by: Carvedilol (Coreg) 25 mg PO BID [facility] Last Admin: 07/02/20 08:51 Dose: 12.5 mg Documented by: Carvedilol (Coreg) 12.5 mg PO BID [facility] Last Admin: 07/03/20 11:33 Dose: Not Given Documented by: Sodium Chloride (Normal Saline) 1,000 mls @ 100 mls/hr IV ASDIRECTED [facility] Stop: 07/01/20 00:44 Last Admin: 06/30/20 21:40 Dose: 100 mls/hr Documented by: Cefepime HCl 1 gm/ Premix 50 mls @ 100 mls/hr IV Q12H [facility] Last Admin: 06/30/20 20:17 Dose: 100 mls/hr Documented by: Acyclovir 730 mg/ Sodium (Chloride) 264.6 mls @ 130 mls/hr IV Q8H [facility] Last Admin: 07/02/20 01:15 Dose: 130 mls/hr Documented by: Micafungin Sodium 100 mg/ (Sodium Chloride) 100 mls @ 100 mls/hr IV Q24H [facility] Last Admin: 07/01/20 17:09 Dose: 100 mls/hr Documented by: Lactated Ringer's (Ringers, Lactated) 1,000 mls @ 999 mls/hr IV BOLUS [facility] Stop: 07/02/20 17:15 Last Admin: 06/30/20 20:21 Dose: 999 mls/hr Documented by: Magnesium Sulfate (Magnesium Sulfate In Water Premix) 2 gm in 50 mls @ 25 mls/hr IV ONETIME ONE Stop: 06/30/20 19:59 Last Admin: 06/30/20 17:22 Dose: 25 mls/hr Documented by: Sodium Chloride (Normal Saline) 250 mls @ 50 mls/hr IV ASDIRECTED [facility] Magnesium Sulfate/Dextrose 1 (gm/ Premix) 100 mls @ 100 mls/hr IV ONETIME ONE Stop: 07/02/20 08:06 Last Admin: 07/02/20 08:37 Dose: 100 mls/hr Documented by: Magnesium Sulfate (Magnesium Sulfate In Water Premix) 2 gm in 50 mls @ 25 mls/hr IV ONETIME ONE Stop: 07/03/20 12:59 Last Admin: 07/03/20 11:28 Dose: 25 mls/hr Documented by: Sodium Chloride (Normal Saline) 250 mls @ 50 mls/hr IV ASDIRECTED [facility] Last Admin: 07/04/20 17:31 Dose: 50 mls/hr Documented by: Magnesium Sulfate 4 gm/ Premix 50 mls @ 12.5 mls/hr IV ONETIME ONE Stop: 07/04/20 11:52 Last Admin: 07/04/20 09:36 Dose: 12.5 mls/hr Documented by: Magnesium Sulfate 4 gm/ Premix 50 mls @ 12.5 mls/hr IV ONETIME ONE Stop: 07/06/20 14:49 Last Admin: 07/06/20 11:22 Dose: 12.5 mls/hr Documented by: Sodium Chloride (Normal Saline) 250 mls @ 100 mls/hr IV ASDIRECTED [facility] Stop: 07/06/20 23:00 Insulin Glargine (Lantus) 10 unit SUBCUT BIDAC [facility] Last Admin: 07/02/20 11:46 Dose: Not Given Documented by: Insulin Glargine (Lantus) 10 unit SUBCUT BID@0700,1700 [facility] Last Admin: 07/04/20 08:37 Dose: 6 units Documented by: Insulin Glargine (Lantus) 12 unit SUBCUT ONETIME ONE Stop: 07/06/20 09:31 Last Admin: 07/06/20 09:35 Dose: 12 units Documented by: Insulin Human Lispro (Humalog) 0 unit SUBCUT ONETIME ONE; Protocol Stop: 07/06/20 09:31 Last Admin: 07/06/20 09:34 Dose: 2 units Documented by: Losartan Potassium (Cozaar) 50 mg PO DAILY [facility] Last Admin: 07/02/20 09:16 Dose: Not Given Documented by: Magnesium Hydroxide (Milk Of Magnesia) 30 ml PO ONETIME ONE Stop: 07/07/20 06:01 Last Admin: 07/07/20 06:02 Dose: 30 ml Documented by: Non-Formulary Medication (Cyclosporine [Cyclosporine]) 600 mg PO DAILY [facility] Non-Formulary Medication (Cyclosporine [Cyclosporine]) 700 mg PO BEDTIME [facility] Non-Formulary Medication (Prednisone [Prednisone]) 125 mg PO DAILY [facility] Tbo-Filgrastim (Granix) 650 mcg SQ ONETIME ONE Stop: 07/06/20 12:01 Last Admin: 07/06/20 13:47 Dose: 650 mcg Documented by: Sepsis Event Note - Evaluation Sepsis Screening Result: No Definite Risk - Focused Exam Vital Signs: Vital Signs Temp Pulse Pulse Resp BP BP Pulse Ox 07/07/20 07:45 97.9 F 62 16 145/88 H 95 07/07/20 04:47 97.0 F 65 16 134/92 H 94 L 07/07/20 00:33 69 93 L 07/06/20 23:33 97.9 F 65 16 139/97 H 91 L 07/06/20 22:00 143/79 H 07/06/20 21:04 98.4 F 61 18 152/87 H 94 L 07/06/20 20:59 98.4 F 65 18 152/87 H 07/06/20 20:32 154/97 H - My Orders Last 24 Hours: My Active Orders 07/07/20 08:15 Magnesium Sulfate/Water [Magnesium Sulfate in Water Premix] 2 gm in 50 ml IV ONETIME - Plan Plan:: This is a 74 yo elderly white male with past medical hx/o COVID 19 Infection and Aplastic Anemia S/p BM biopsy 2 weeks currently on chemotherapy with Anti Thymocyte Globulin, Cyclosporines, Methylprednisolone as well Filgrastin (Zarxio), and Obesity who comes to us as a direct admit from the clinic for further management for Severe Neutropenia and Community Acquired Pneumonia diagnosed at the clinic today while he was being seen for routine follow up labs. Assessment: Acute: Sepsis secondary to community acquired pneumonia Bacteremia secondary to Pseudomonas aeruginosa and Streptococcus salivarius Severe neutropenia with ANC of 0, WBC drops to 0.90 today Pancytopenia: Moderate anemia, Severe neutropenia, Severe thrombocytopenia and Relative lymphocytosis via BM * Hgb 7 grams yesterday and received 2 units of PRBC at the clinic; Hgb today is 9.1 grams status post 2 units of packed red blood cells transfusion * Platelet today is 12K status post 1 unit of platelet transfusion * Cut off: infuse blood if symptomatic and Platelet if < 10K or < 20K with active bleeding/fever per Oncology provider * Repeat preliminary blood culture so far is negative after 24 hours * Resume isolation protocol to drop in WBC level at 0.90 * He continues to improve clinically Aplastic Anemia currently on chemotherapy: cyclosporin, steroid, and zarxio (will continue regimen) S/p BM Biopsy : * Hypocellular marrow with markedly decreased trilineage hematopoiesis. No increased blasts. Relative lymphohistiocytic hyperplasia with plasmacytosis. * Deemed ineligible for transplant from note obtained at the clinic Right Middle Lobe PNA * No shortness of breath or cough * He is on RA * Repeat chest x-ray on 07/01/2020: increased density within previously right lower lobe pneumonia * Continue IV Cefepime 2 grams Q8H Hx/o Covid -19 Infection in Nov Hyperglycemia, improved * Due to new onset of diabetes * Carries no hx/o Diabetes or Glucose Intolerance * However he has been on steroid * A1C of 7.10 * Continue Accu-check TIDAC with ISS and will change Lantus to 12 units subQ BID * Diabetic education Hypocalcemia * Non corrected Ca level of 8.4-->8.1-->8.3 * Calcium is 9.5 mg/dL * Continue to monitor Hypomagnesemia, improved * Mg of 1.6-->1.8-->1.5-->1.7-->1.8 * Likely due to inadequate intake * Continue to replete * We will start him on oral supplement starting tonight Mildly Elevated T. Bilirubin of 1.3 Elevated CRP of 11.6-->13.4-->12.8-->5.2, improving Hypoalbuminemia with Albumin of 2.5 Hypertension, not controlled * Carvedilol on hold * Start Norvasc 5 mg po daily * PRN IV Hydralazine Q6H Bradycardia with Pauses, improved * HR in the 50s * He takes 12.5 mg po BID of carvedilol-on hold * 2D echo: unremarkable Class III Obese * BMI of 40.7 * [employer]'s consult for weight management Resolved: Lactic Acidosis, resolved * LA of 4.0-->now 2.0 * Likely from underlying sepsis * Volume resuscitation Chronic: Aplastic Anemia, S/p BM Biopsy and Morbid Obesity Plan: Continue current treatment. Routine AM Labs. Continue IV Cefepime 1 gram Q8H. DVT/GI prophylaxis: SCDs due to low platelet level and H2B. PT/OT when appropriate. Continue to avoid ASA and Anticoagulations. Code status is full. Prognosis is good. LOS > 96 hrs pending repeat blood cultures for at least 48hrs and stable Hgb and platelet levels. 07/06/2020 Patient continues to have severe neutropenia with an absolute neutrophil count of only 40. White count has increased, but neutrophil count did not increase correspondingly. He continues on Granix daily. Unfortunately platelets also dropped significantly down to 7. Hemoglobin is stable at 9.3. He continues to be afebrile. Renal function is slightly decreased with an estimated GFR of 59. Uneasiness low at 1.7. Blood sugars have been well controlled generally in the mid 100s. I spoke with his oncology nurse practitioner Traci White NP who stated that when he is appropriately treated for his community-acquired pneumonia he can be discharged for further follow-up with the oncology clinic for his aplastic anemia. Blood pressure is good on amlodipine 5 mg and off of his beta-harshil. Also he continues to have a significant bradycardia in the 50s even with the blood pressure medication change. Plan * Give 2 units of irradiated platelets * Continue to follow CBC * Continue Granix * Reverse precautions * Plan discharge tomorrow or the next day * Continue antibiotics for another day or possibly 2. I would like to see his absolute neutrophil count start to increase somewhat. * Bacteremia secondary to Pseudomonas aeruginosa and Streptococcus salivarius. Pseudomonas is resistant to Levaquin. * VTE prophylaxis with chemoprophylaxis is contraindicated secondary to severely low platelets. Patient does have some petechia already.
[2020-07-07] MEDS: Cholecalciferol (Vitamin D3) 25 MCG Tab PO SCH (08:52)
[2020-07-07] MEDS: predniSONE 5 MG Tab PO SCH (08:52)
[2020-07-07] MEDS: amLODIPine 5 MG Tab PO SCH (08:53)
[2020-07-07] MEDS: predniSONE 20 MG Tab PO SCH (08:53)
[2020-07-07] MEDS: Magnesium Oxide 400 MG Tab PO SCH (08:53)
[2020-07-07] MEDS: Insulin Glarg,Human.Rec.Analog 100 Unit/ML SUBCUT SCH (08:54)
[2020-07-07] MEDS: Famotidine 20 MG Tab PO SCH (09:06)
[2020-07-07] MEDS: PITAVASTATIN CALCIUM 1 MG PO SCH (09:06)
--- NOTE | 2020-07-07 12:43 | PCM.DCSUM1 ---
Discharge Summary - Hospital Course HPI Initial Comments: This is a 74 yo elderly white male with past medical hx/o COVID 19 Infection and Aplastic Anemia S/p BM biopsy 2 weeks currently on chemotherapy with Anti Thymocyte Globulin, Cyclosporines, Methylprednisolone as well Filgrastin (Zarxio), and Obesity who comes to us for further management of Severe Neutropenia and Community Acquired Pneumonia diagnosed at the clinic today while he was being seen for routine follow up labs. He reports having subjective fever as high as 100.5 F, chills, cough, shortness of breath, fatigue and generalized weakness. No GI/ complaints. His initial work up at the clinic showed a Hgb of 8.6 grams, Platelet of 14K, and ANC of 0. He received an infusion of zarxio prior to coming up to the hospital for further treatment. He had 2 units of PRBC and 1 unit of Platelet infusion yesterday. He does not look septic or in acute respiratory distress. Diagnosis: Stroke: No - Discharge Data Discharge Date: 07/07/20 (Admit date: 06/30/20) Discharge Disposition: Home, Self-Care 01 Condition: Good - Referral to Home Health Primary Care Physician: Christopher Melgoza MD - Discharge Diagnosis/Problem(s) (1) Aplastic anemia SNOMED Code(s): 770809986 ICD Code: D61.9 - APLASTIC ANEMIA, UNSPECIFIED Status: Acute Priority: High (2) Pneumonia SNOMED Code(s): 068886707 ICD Code: J18.9 - PNEUMONIA, UNSPECIFIED ORGANISM Status: Resolved Priority: High Qualifiers: Pneumonia type: due to unspecified organism Laterality: unspecified laterality Lung location: unspecified part of lung Qualified Code(s): J18.9 - Pneumonia, unspecified organism (3) Severe neutropenia SNOMED Code(s): 306290800 ICD Code: D70.9 - NEUTROPENIA, UNSPECIFIED Status: Acute Priority: High (4) Pancytopenia SNOMED Code(s): 810365188 ICD Code: D61.818 - OTHER PANCYTOPENIA Status: Acute Priority: High (5) Bacteremia SNOMED Code(s): 2499953 ICD Code: R78.81 - BACTEREMIA Status: Resolved Priority: High (6) History of 2019 novel coronavirus disease (COVID-19) SNOMED Code(s): 222734635504209818, 002342115637826425 ICD Code: Z86.16 - PERSONAL HISTORY OF COVID-19 Status: Chronic Priority: Low (7) Hypomagnesemia SNOMED Code(s): 111705570 ICD Code: E83.42 - HYPOMAGNESEMIA Status: Acute Priority: High (8) Type 2 diabetes mellitus SNOMED Code(s): 93563205 ICD Code: E11.9 - TYPE 2 DIABETES MELLITUS WITHOUT COMPLICATIONS Status: Acute Priority: High Qualifiers: Diabetes mellitus assisted insulin use: without terminal carman use Diabetes mellitus complication status: with other specified complication Qualified Code(s): E11.69 - Type 2 diabetes mellitus with other specified complication - Patient Summary/Data Consults: Consultations 06/30/20 14:38 Consult to Case Management/Civil Engineering Professor [CONS] Routine OT Evaluation and Treatment [CONS] Routine PT Evaluation and Treatment [CONS] Routine Respiratory Care Assess and Treatment [CONS] Routine 06/30/20 16:26 Consult to Dietary [Consult to Metal Tester] [CONS] Routine 07/01/20 11:45 Consult to Diabetic Nurse Specialist [CONS] Routine Labs Pending at D/C: None Recommended Follow-up Testing/Procedures: Follow-up with primary care provider within 7-10 days of discharge, sooner if needed. Follow-up with oncology as scheduled. Hospital Course: Rai was admitted to the hospital floor as a direct admit with sepsis secondary to community-acquired pneumonia. He was also noted to be bacteremic with Pseudomonas aeruginosa and Streptococcus salivarius. He is currently receiving chemotherapy including cyclosporine, steroids, and Zarxio. His home medication regimen was continued. He had severe neutropenia throughout his stay, although it did improve slightly. He was noted to be pancytopenic with moderate anemia, severe thrombocytopenia, and relative lymphocytosis. His hemoglobin was noted to be 7 g prior to admission he was given 2 units of PRBCs at the clinic which did improve his hemoglobin up to 9.1. Platelets were very low at 7000 and he was given 2 units of irradiated platelets. Platelets did then improve up to 50,000. He was placed on neutropenic isolation. Right middle lobe pneumonia was noted and he was started on cefepime 2 g every 8 hours. He does carry a history of COVID-19 infection in April. While here he was noted to be hyperglycemic and his A1c was obtained and was 7.10. He has no history of diabetes or glucose intolerance but he has been on a steroid. Accu-Cheks were ordered and he was started on Lantus 12 units subcutaneous twice daily along with sliding scale insulin. clinical educator was in to see the patient and did offer glucometer, lancets, and test strips but the patient refused. He reports that he will get this stuff through [facility]. Because of this we will not send the patient home on any insulin and will have him follow- up with his primary care provider. Museum was low and was supplemented and he will be sent a oral prescription at discharge. Prior to discharge she clinically continue to look good. Lactic acid trended down from 4.0 to 2.0. He was utilizing his Acapella and incentive spirometer regularly. He was instructed to continue this for 1 week or until symptoms resolve. Repeat blood cultures were negative. Echocardiogram obtained on 07/03/2020: 1. LVEF, by visual estimation, is 55-60. 2. Mild concentric left ventricular hypertrophy. 3. Normal right ventricular systolic function. 4. Right ventricular size is mildly enlarged. 5. There is mild aortic valve sclerosis without stenosis. 6. Trace mitral valve regurgitation. 7. Trace tricuspid valve regurgitation. 8. Mild dilation of the ascending aorta. 9. The right ventricular systolic pressure is borderline 37.2 mmHg. 10. Small patent foramen ovale with predominantly [id number] shunting across the atrial septum. 11. No evidence of endocarditis identified. 12. No regional wall motion abnormalities. Dr. Garcia, attending hospitalist, did contact oncology nurse practitioner due to patient's continued pancytopenia. They recommended we complete treatment for patient's community-acquired pneumonia and bacteremia and then have him follow- up with them outpatient. He will be discharged home today. He completed antibiotic treatment. All home prescriptions were continued. He was given a prescription for 4 days of p.o. magnesium. Recommend he follow-up with EP for repeat CBC, CMP, magnesium, and chest x-ray. Also recommend PCP discuss patient's apparent new diabetes diagnosis. - Patient Instructions Diet: Diabetic Diet Activity: As Tolerated Driving: Do Not Drive (today ) Showering/Bathing: May Shower Notify Provider of: Fever, Increased Pain, Swelling and Redness, Nausea and/or Vomiting Other/Special Instructions: Follow-up with primary care provider within 5-7 days of discharge, sooner if needed. Follow-up with oncology as scheduled. Resume home medications as indicated. Your blood glucose readings were high here and your A1C was 7.1%. This is likely elevated due to your steroid use. You saw our telehealth nurse educator and were offered a glucometer but refused. Recommend you o btain a glucometer and take your blood glucose readings three times a day. Record these results into a journal and bring this with to all medical appointaments. You may need to start a diabetic medication. You completed treatment for your pneumonia and bacteremia while here. You will not be prescribed anything for this. Continue to utilize your incenitve spirometer (clear/blue device you inhale through) and acapella (green tube you blow through) for 1 week or until your symptoms resolve. Should symptoms return or worsen contact your primary care provider or return to the Emergency Department. - Discharge Plan *PRESCRIPTION DRUG MONITORING PROGRAM REVIEWED*: No *COPY OF PRESCRIPTION DRUG MONITORING REPORT IN PATIENT CECY: No Prescriptions/Med Rec: Magnesium Oxide 400 mg PO BID #8 tablet Home Medications: Home Meds Doxazosin [Cardura] 4 mg PO BEDTIME 05/15/20 [History] cycloSPORINE [Cyclosporine] 600 mg PO DAILY 06/30/20 [History] cycloSPORINE [Cyclosporine] 700 mg PO BEDTIME 06/30/20 [History] carvediloL [Carvedilol] 12.5 mg PO BID 07/01/20 [History] predniSONE [Prednisone] 125 mg PO DAILY 07/01/20 [History] Cholecalciferol (Vitamin D3) [Vitamin D3] 1,000 unit PO DAILY 07/02/20 [History] Magnesium Oxide 400 mg PO BID #8 tablet 07/07/20 [Rx] Oxygen Therapy Mode: Room Air Patient Handouts: Type 2 Diabetes Mellitus, Diagnosis, Adult, Sepsis, Diagnosis, Adult Referrals: Christopher Melgoza MD [Primary Care Provider] - (Please follow up with Dr. Travis during your previously scheduled hospital follow up on July 13. ) - Discharge Summary/Plan Comment DC Time >30 min.: Yes (45 mins ) - General Info Date of Service: 07/07/20 Functional Status: Reports: Pain Controlled, Tolerating Diet, Ambulating, Urinating, Incentive Spirometry, Other (acapella ). Denies: New Symptoms - Review of Systems General: Reports: No Symptoms. Denies: Fever, Weakness, Fatigue, Malaise, Chills HEENT: Reports: No Symptoms. Denies: Headaches, Sore Throat Pulmonary: Reports: No Symptoms. Denies: Shortness of Breath, Pleuritic Chest Pain, Cough, Sputum, Wheezing Cardiovascular: Reports: No Symptoms. Denies: Chest Pain, Palpitations, Dyspnea on Exertion Gastrointestinal: Reports: No Symptoms. Denies: Abdominal Pain, Constipation, Diarrhea, Nausea, Vomiting Genitourinary: Reports: No Symptoms. Denies: Pain Musculoskeletal: Reports: No Symptoms Skin: Reports: No Symptoms. Denies: Cyanosis Neurological: Reports: No Symptoms. Denies: Confusion, Difficulty Walking, Gait Disturbance Psychiatric: Reports: No Symptoms - Patient Data Vitals - Most Recent: Last Vital Signs Temp 98.2 F 07/07/20 11:27 Pulse 60 07/07/20 11:27 Resp 16 07/07/20 11:27 BP 152/73 H 07/07/20 11:27 Pulse Ox 95 07/07/20 11:27 Weight - Most Recent: 280 lb 6.4 oz I&O - Last 24 hours: Intake & Output 07/06/20 07/07/20 07/07/20 22:59 06:59 14:59 Intake Total 2490 950 300 Output Total 1700 Balance 2490 -750 300 Lab Results - Last 24 hrs: Laboratory Results - last 24 hr 07/04/20 07/06/20 07/07/20 Range/Units 06:25 17:04 06:00 WBC (4.23-9.07) K/mm3 RBC (4.63-6.08) M/mm3 Hgb (13.7-17.5) gm/dl Hct (40.1-51.0) % MCV (79.0-92.2) fl MCH (25.7-32.2) pg MCHC (32.2-35.5) g/dl RDW Std Deviation (35.1-43.9) fL Plt Count (163-337) K/mm3 MPV (9.4-12.3) fl Neut % (Auto) (34.0-67.9) % Lymph % (Auto) (21.8-53.1) % Kimball % (Auto) (5.3-12.2) % Eos % (Auto) (0.8-7.0) Baso % (Auto) (0.1-1.2) % Neut # (Auto) (1.78-5.38) K/mm3 Lymph # (Auto) (1.32-3.57) K/mm3 Kimball # (Auto) (0.30-0.82) K/mm3 Eos # (Auto) (0.04-0.54) K/mm3 Baso # (Auto) (0.01-0.08) K/mm3 Manual Slide Review Sodium (136-145) mEq/L Potassium (3.5-5.1) mEq/L Chloride (98-107) mEq/L Carbon Dioxide (21-32) mEq/L Anion Gap (5-15) BUN (7-18) mg/dL Creatinine (0.7-1.3) mg/dL Est Cr Clr Drug Dosing mL/min Estimated GFR (MDRD) (>60) mL/min BUN/Creatinine Ratio (14-18) Glucose (83-115) mg/dL POC Glucose 287 H 125 H (83-110) mg/dL Calcium (8.5-10.1) mg/dL Magnesium (1.8-2.4) mg/dl Blood Type B POSITIVE Gel Antibody Screen Negative Crossmatch See Detail 07/07/20 07/07/20 07/07/20 Range/Units 06:15 06:15 11:25 WBC 1.05 L* (4.23-9.07) K/mm3 RBC 2.92 L (4.63-6.08) M/mm3 Hgb 8.4 L (13.7-17.5) gm/dl Hct 25.5 L (40.1-51.0) % MCV 87.3 (79.0-92.2) fl MCH 28.8 (25.7-32.2) pg MCHC 32.9 (32.2-35.5) g/dl RDW Std Deviation 45.6 H (35.1-43.9) fL Plt Count 50 L (163-337) K/mm3 MPV 9.3 L (9.4-12.3) fl Neut % (Auto) 1.8 L (34.0-67.9) % Lymph % (Auto) 90.5 H (21.8-53.1) % Kimball % (Auto) 2.9 L (5.3-12.2) % Eos % (Auto) 0 L (0.8-7.0) Baso % (Auto) 0.0 L (0.1-1.2) % Neut # (Auto) 0.02 L (1.78-5.38) K/mm3 Lymph # (Auto) 0.95 L (1.32-3.57) K/mm3 Kimball # (Auto) 0.03 L (0.30-0.82) K/mm3 Eos # (Auto) 0.00 L (0.04-0.54) K/mm3 Baso # (Auto) 0.00 L (0.01-0.08) K/mm3 Manual Slide Review Abnormal smear Sodium 137 (136-145) mEq/L Potassium 4.6 (3.5-5.1) mEq/L Chloride 102 (98-107) mEq/L Carbon Dioxide 27 (21-32) mEq/L Anion Gap 12.6 (5-15) BUN 42 H (7-18) mg/dL Creatinine 1.0 (0.7-1.3) mg/dL Est Cr Clr Drug Dosing 67.93 mL/min Estimated GFR (MDRD) > 60 (>60) mL/min BUN/Creatinine Ratio 42.0 H (14-18) Glucose 117 H (83-115) mg/dL POC Glucose 144 H (83-110) mg/dL Calcium 8.4 L (8.5-10.1) mg/dL Magnesium 1.9 (1.8-2.4) mg/dl Blood Type Gel Antibody Screen Crossmatch LYDIA Results - Last 24 hrs: Microbiology 07/03/20 07:18 Aerobic Blood Culture - Preliminary Blood - Venous NO GROWTH AFTER 4 DAYS Anaerobic Blood Culture - Preliminary NO GROWTH AFTER 4 DAYS 07/03/20 07:10 Aerobic Blood Culture - Preliminary Blood - Venous - Lab Draw NO GROWTH AFTER 4 DAYS Anaerobic Blood Culture - Preliminary NO GROWTH AFTER 4 DAYS 06/30/20 15:05 Aerobic Blood Culture - Preliminary Blood NO GROWTH AFTER 6 DAYS Anaerobic Blood Culture - Preliminary NO GROWTH AFTER 6 DAYS 06/30/20 15:11 Aerobic Blood Culture - Final Blood - Venous Pseudo Aeruginosa Anaerobic Blood Culture - Final Streptococcus Salivarius Med Orders - Current: Current Medications Acetaminophen (Tylenol) 650 mg PO Q4H PRN PRN Reason: Pain (Mild 1-3)/fever Last Admin: 07/05/20 00:23 Dose: 650 mg Documented by: Acetaminophen (Tylenol) 650 mg RECTAL Q4H PRN PRN Reason: Pain (mild 1-3) Hydrocodone Bitart/Acetaminophen ([place] 325-5 Mg) 1 tab PO Q4H PRN PRN Reason: Pain (moderate 4-6) Albuterol/Ipratropium (Duoneb 3.0-0.5 Mg/3 Ml) 3 ml NEB Q4H PRN PRN Reason: Shortness Of Breath/wheezing Amlodipine Besylate (Norvasc) 5 mg PO DAILY [facility] Last Admin: 07/07/20 08:53 Dose: 5 mg Documented by: Cholecalciferol (Vitamin D3) 25 mcg PO DAILY [facility] Last Admin: 07/07/20 08:52 Dose: 25 mcg Documented by: Cyclosporine (Modified) (Neoral) 600 mg PO DAILY [facility] Last Admin: 07/07/20 09:06 Dose: 600 mg Documented by: Cyclosporine (Modified) (Neoral) 700 mg PO BEDTIME [facility] Last Admin: 07/06/20 20:44 Dose: 700 mg Documented by: Doxazosin Mesylate (Cardura) 4 mg PO BEDTIME [facility] Last Admin: 07/06/20 20:32 Dose: 4 mg Documented by: Famotidine (Pepcid) 20 mg PO DAILY [facility] Last Admin: 07/07/20 09:06 Dose: 20 mg Documented by: Hydralazine HCl (Apresoline) 20 mg IVPUSH Q4H PRN PRN Reason: Hypertension Last Admin: 07/06/20 21:50 Dose: 20 mg Documented by: Hydromorphone HCl (Dilaudid) 0.25 mg IVPUSH Q2H PRN PRN Reason: Pain (severe 7-10) Promethazine HCl 12.5 mg/ (Sodium Chloride) 50.5 mls @ 100 mls/hr IV Q6H PRN PRN Reason: Nausea/Vomiting Cefepime HCl 2 gm/ Premix 50 mls @ 100 mls/hr IV Q8H [facility] Last Admin: 07/07/20 08:53 Dose: 100 mls/hr Documented by: Ibuprofen (Motrin) 600 mg PO Q6H PRN PRN Reason: Pain (moderate 4-6) Last Admin: 06/30/20 21:40 Dose: 600 mg Documented by: Insulin Glargine (Lantus) 12 unit SUBCUT BID@0700,1700 [facility] Last Admin: 07/07/20 08:54 Dose: 12 units Documented by: Insulin Human Lispro (Humalog) 0 unit SUBCUT TIDAC [facility]; Protocol Last Admin: 07/07/20 11:37 Dose: Not Given Documented by: Magnesium Oxide (Magnesium Oxide) 400 mg PO BID [facility] Last Admin: 07/07/20 08:53 Dose: 400 mg Documented by: Ondansetron HCl (Zofran) 4 mg IV Q6H PRN PRN Reason: Nausea/Vomiting Pitavastatin Calcium ([Livalo] 1 Mg) 0 each PO DAILY [facility] Last Admin: 07/07/20 09:06 Dose: Not Given Documented by: Polyethylene Glycol (Miralax) 17 gm PO DAILY PRN PRN Reason: Constipation Last Admin: 07/07/20 11:36 Dose: 17 gm Documented by: Prednisone (Prednisone) 120 mg PO DAILY [facility] Last Admin: 07/07/20 08:53 Dose: 120 mg Documented by: Prednisone (Prednisone) 5 mg PO DAILY [facility] Last Admin: 07/07/20 08:52 Dose: 5 mg Documented by: Senna/Docusate Sodium (Senna Plus) 1 tab PO BID PRN PRN Reason: Constipation Last Admin: 07/06/20 20:57 Dose: 1 tab Documented by: Tbo-Filgrastim (Granix) 650 mcg SQ DAILY [facility] Last Admin: 07/07/20 08:54 Dose: 650 mcg Documented by: Zolpidem Tartrate (Ambien) 5 mg PO BEDTIME PRN PRN Reason: Sleep Last Admin: 07/04/20 01:28 Dose: 5 mg Documented by: Discontinued Medications Amlodipine Besylate (Norvasc) 5 mg PO DAILY [facility] Last Admin: 07/02/20 09:16 Dose: Not Given Documented by: Carvedilol (Coreg) 25 mg PO BID [facility] Last Admin: 07/02/20 08:51 Dose: 12.5 mg Documented by: Carvedilol (Coreg) 12.5 mg PO BID [facility] Last Admin: 07/03/20 11:33 Dose: Not Given Documented by: Sodium Chloride (Normal Saline) 1,000 mls @ 100 mls/hr IV ASDIRECTED [facility] Stop: 07/01/20 00:44 Last Admin: 06/30/20 21:40 Dose: 100 mls/hr Documented by: Cefepime HCl 1 gm/ Premix 50 mls @ 100 mls/hr IV Q12H [facility] Last Admin: 06/30/20 20:17 Dose: 100 mls/hr Documented by: Acyclovir 730 mg/ Sodium (Chloride) 264.6 mls @ 130 mls/hr IV Q8H [facility] Last Admin: 07/02/20 01:15 Dose: 130 mls/hr Documented by: Micafungin Sodium 100 mg/ (Sodium Chloride) 100 mls @ 100 mls/hr IV Q24H [facility] Last Admin: 07/01/20 17:09 Dose: 100 mls/hr Documented by: Lactated Ringer's (Ringers, Lactated) 1,000 mls @ 999 mls/hr IV BOLUS [facility] Stop: 07/02/20 17:15 Last Admin: 06/30/20 20:21 Dose: 999 mls/hr Documented by: Magnesium Sulfate (Magnesium Sulfate In Water Premix) 2 gm in 50 mls @ 25 mls/hr IV ONETIME ONE Stop: 06/30/20 19:59 Last Admin: 06/30/20 17:22 Dose: 25 mls/hr Documented by: Sodium Chloride (Normal Saline) 250 mls @ 50 mls/hr IV ASDIRECTED [facility] Magnesium Sulfate/Dextrose 1 (gm/ Premix) 100 mls @ 100 mls/hr IV ONETIME ONE Stop: 07/02/20 08:06 Last Admin: 07/02/20 08:37 Dose: 100 mls/hr Documented by: Magnesium Sulfate (Magnesium Sulfate In Water Premix) 2 gm in 50 mls @ 25 mls/hr IV ONETIME ONE Stop: 07/03/20 12:59 Last Admin: 07/03/20 11:28 Dose: 25 mls/hr Documented by: Sodium Chloride (Normal Saline) 250 mls @ 50 mls/hr IV ASDIRECTED [facility] Last Admin: 07/04/20 17:31 Dose: 50 mls/hr Documented by: Magnesium Sulfate 4 gm/ Premix 50 mls @ 12.5 mls/hr IV ONETIME ONE Stop: 07/04/20 11:52 Last Admin: 07/04/20 09:36 Dose: 12.5 mls/hr Documented by: Magnesium Sulfate 4 gm/ Premix 50 mls @ 12.5 mls/hr IV ONETIME ONE Stop: 07/06/20 14:49 Last Admin: 07/06/20 11:22 Dose: 12.5 mls/hr Documented by: Sodium Chloride (Normal Saline) 250 mls @ 100 mls/hr IV ASDIRECTED [facility] Stop: 07/06/20 23:00 Magnesium Sulfate (Magnesium Sulfate In Water Premix) 2 gm in 50 mls @ 25 mls/hr IV ONETIME ONE Stop: 07/07/20 10:14 Last Admin: 07/07/20 09:43 Dose: 25 mls/hr Documented by: Insulin Glargine (Lantus) 10 unit SUBCUT BIDAC [facility] Last Admin: 07/02/20 11:46 Dose: Not Given Documented by: Insulin Glargine (Lantus) 10 unit SUBCUT BID@0700,1700 [facility] Last Admin: 07/04/20 08:37 Dose: 6 units Documented by: Insulin Glargine (Lantus) 12 unit SUBCUT ONETIME ONE Stop: 07/06/20 09:31 Last Admin: 07/06/20 09:35 Dose: 12 units Documented by: Insulin Human Lispro (Humalog) 0 unit SUBCUT ONETIME ONE; Protocol Stop: 07/06/20 09:31 Last Admin: 07/06/20 09:34 Dose: 2 units Documented by: Losartan Potassium (Cozaar) 50 mg PO DAILY [facility] Last Admin: 07/02/20 09:16 Dose: Not Given Documented by: Magnesium Hydroxide (Milk Of Magnesia) 30 ml PO ONETIME ONE Stop: 07/07/20 06:01 Last Admin: 07/07/20 06:02 Dose: 30 ml Documented by: Non-Formulary Medication (Cyclosporine [Cyclosporine]) 600 mg PO DAILY [facility] Non-Formulary Medication (Cyclosporine [Cyclosporine]) 700 mg PO BEDTIME [facility] Non-Formulary Medication (Prednisone [Prednisone]) 125 mg PO DAILY [facility] Tbo-Filgrastim (Granix) 650 mcg SQ ONETIME ONE Stop: 07/06/20 12:01 Last Admin: 07/06/20 13:47 Dose: 650 mcg Documented by: - Exam Quality Assessment: Reports: DVT Prophylaxis. Denies: Supplemental Oxygen, Urine Catheter General: Reports: Alert, Oriented, Cooperative, No Acute Distress HEENT: Reports: Pupils Equal, Pupils Reactive, Mucous Membr. Moist/[place] Neck: Reports: Supple, Trachea Midline Lungs: Reports: Clear to Auscultation, Normal Respiratory Effort Cardiovascular: Reports: Regular Rate, Regular Rhythm GI/Abdominal Exam: Normal Bowel Sounds, Soft, Non-Tender, No Distention (Male) Exam: Deferred Rectal (Males) Exam: Deferred Back Exam: Reports: Normal Inspection, Full Range of Motion Extremities: Normal Inspection, Normal Range of Motion, Non-Tender, No Pedal Edema, Normal Capillary Refill Skin: Reports: Warm, Dry, Intact, Other (Very small petechiae on upper chest and back.) Neurological: Reports: No New Focal Deficit Psy/Mental Status: Reports: Alert, Normal Affect, Normal Mood
== END 2020-07-07 13:18 | disposition home or self-care (01) | DRG 871 ==
LOC: JD.MS 14:34
PROVIDERS: ADMIT Internal Medicine; ATTEND Internal Medicine
PROC: 30233N1 Transfusion of Nonautologous Red Blood Cells into Peripheral Vein, Percutaneous Approach (ICD-10-PCS; principal; 2020-06-30)
PROC: 30233R1 Transfusion of Nonautologous Platelets into Peripheral Vein, Percutaneous Approach (ICD-10-PCS; 2020-06-30)
PROC: 8E0ZXY6 Isolation (ICD-10-PCS; 2020-06-30)
DX: A41.52 Sepsis due to Pseudomonas (principal); J18.9 Pneumonia, unspecified organism; D61.9 Aplastic anemia, unspecified; D61.818 Other pancytopenia; A40.8 Other streptococcal sepsis; D70.9 Neutropenia, unspecified; Z86.16 Personal history of COVID-19; E83.42 Hypomagnesemia; E83.51 Hypocalcemia; E88.09 Other disorders of plasma-protein metabolism, not elsewhere classified; R73.9 Hyperglycemia, unspecified; I25.10 Atherosclerotic heart disease of native coronary artery without angina pectoris; E78.00 Pure hypercholesterolemia, unspecified; K90.0 Celiac disease; E66.01 Morbid (severe) obesity due to excess calories; Z79.52 Long term (current) use of systemic steroids; Z79.899 Other long term (current) drug therapy; Z88.8 Allergy status to other drugs, medicaments and biological substances; Z79.82 Long term (current) use of aspirin; I25.2 Old myocardial infarction; Z95.5 Presence of coronary angioplasty implant and graft
CPT/HCPCS: 36415; 36430; 71045; 71045-26; 80048; 80053; 80061; 80158; 81001; 82043; 82306; 82962; 83036; 83605; 83735; 84145; 85007; 85025; 85027; 85652; 86140; 86850; 86900; 86901; 86922; 87040; 87070; 87077; 87086; 87088; 87181; 87184; 87186; 87486; 87581; 87633; 87641; 87798; 87804; 93005; 93306; 94667; 97116-GP; 97162-GP; 99232; 99233; 99239; 99291; A9270-GY; J0133; J0360; J0692; J1447; J1815-GY; J2248; J3475; J7030; J7050; J7120; J7502; J7512; P9016; P9037

== ENCOUNTER 2020-07-12 04:26 | Emergency (ER) | payer MEDICARE, OTHER ==
[~2020-07-12 04:26] MED LIST: Tenecteplase 50 MG Kit ONE
[2020-07-12] MEDS ORDERED: Furosemide 100 MG/10 ML SDV ONE (04:34)
--- NOTE | 2020-07-12 04:40 | EDM.PDOC ---
ED HPI GENERAL MEDICAL PROBLEM - General Chief Complaint: Respiratory Problem Stated Complaint: [facility] Time Seen by Provider: 07/12/20 04:33 Source of Information: Reports: Patient, EMS History Limitations: Reports: Respiratory Distress - History of Present Illness INITIAL COMMENTS - FREE TEXT/NARRATIVE: This is a 74-year-old male. Apparently earlier this evening he started having increasing shortness of breath that got worse and worse until he finally comes to the ER early this morning. He is complaining of severe shortness of breath and at home use not on oxygen they put him on 4 L nasal cannula his pulse ox was anywhere from 88% to 92%. He has a history of cardiac problems and MD in the past but no history of congestive heart failure. He does have a history of aplastic anemia and he gets RBCs frequently. He also has a history of recent Covid with pneumonia. The EMS indicated that when he got up to walk to the stretcher he got extremely short of breath and nearly passed out. The patient's not complaining of chest pain at this time. - Related Data Allergies Allergy/AdvReac Type Severity Reaction Status Date / Time tamsulosin [From Flomax] Allergy Cannot Verified 06/10/20 13:19 Remember caffeine [From Diurex] AdvReac Unknown Cough Verified 06/30/20 15:55 magnesium salicylate AdvReac Unknown Cough Verified 06/30/20 15:55 [From Diurex] [id number]-[id number] Reductase AdvReac Unknown Leg Cramps Verified 06/30/20 15:55 Inhibitor hydrochlorothiazide AdvReac Cough Verified 06/30/20 15:55 rosuvastatin [From Crestor] AdvReac Leg Cramps Verified 06/30/20 15:55 simvastatin [From Zocor] AdvReac Leg Cramps Verified 06/30/20 15:55 Home Meds: Home Meds Doxazosin [Cardura] 4 mg PO BEDTIME 05/15/20 [History] cycloSPORINE [Cyclosporine] 600 mg PO DAILY 06/30/20 [History] cycloSPORINE [Cyclosporine] 700 mg PO BEDTIME 06/30/20 [History] carvediloL [Carvedilol] 12.5 mg PO BID 07/01/20 [History] predniSONE [Prednisone] 125 mg PO DAILY 07/01/20 [History] Cholecalciferol (Vitamin D3) [Vitamin D3] 1,000 unit PO DAILY 07/02/20 [History] Magnesium Oxide 400 mg PO BID #8 tablet 07/07/20 [Rx] Losartan [Cozaar] 25 mg PO DAILY 07/12/20 [History] Past Medical History Cardiovascular History: Reports: CAD, Hypertension, MD, Stents Other Cardiovascular History: Patient states he has never had high cholesterol, was on statins after the MD. Gastrointestinal History: Reports: Celiac Disease Other Gastrointestinal History: Patient gets diarrhea when consuming gluten, states he hasn't been diagnosed with celiacs. Hematologic History: Reports: Blood Transfusion(s), Other (See Below) Other Hematologic History: Aplastic anemia Oncologic (Cancer) History: Reports: Prostate - Infectious Disease History Infectious Disease History: Reports: Chicken Pox, Measles, Mumps, Novel Coronavirus, Shingles - Past Surgical History Cardiovascular Surgical History: Reports: Coronary Artery Stent Other Cardiovascular Surgeries/Procedures: stent Musculoskeletal Surgical History: Reports: Hip Replacement, Other (See Below) Other Musculoskeletal Surgeries/Procedures:: Left hip replacement. Social & Family History - Caffeine Use Caffeine Use: Reports: Coffee ED ROS GENERAL - Review of Systems Review Of Systems: See Below Reason Not Obtained: Patient is SOB and not able to talk well ED EXAM, GENERAL - Physical Exam Exam: See Below Exam Limited By: Respiratory Distress General Appearance: Alert, WD/WN, Moderate Distress Eye Exam: Bilateral Eye: Normal Inspection Ears: Normal External Exam Nose: Normal Inspection Throat/Mouth: Normal Lips, No Airway Compromise, Other (The patient is able to talk but his sentences are interrupted by his breathing) Head: Normocephalic Neck: Supple Respiratory/Chest: Respiratory Distress, Crackles, Rales, Other (Has crackles and rales in the bases especially but even and some in the anterior upper lungs.) Cardiovascular: Regular Rate, Rhythm, No Murmur, Tachycardia GI/Abdominal: Other (Abdomen is very protuberant, he denies any pain with palpation he does have a lot of bruising and ecchymosis across his lower abdomen noted.) Back Exam: Decreased Range of Motion Extremities: Pedal Edema, Other (He has at least 2+ edema in the feet going up to trace to the knees bilaterally) Neurological: Alert, Oriented Psychiatric: Anxious Skin Exam: Diaphoretic #1 Interpretation EKG Date: 07/12/20 Time: 04:55 EKG Interpretation Comments: EG shows a normal sinus rhythm rate of 62. There is a right bundle branch block noted and old inferior MD. No acute ST or T wave changes or elevation and no ischemia noted. Course - Vital Signs Last Recorded V/S: Last Vital Signs Temp 97.8 F 07/12/20 05:55 Pulse 66 07/12/20 06:50 Resp 29 H 07/12/20 06:50 BP 87/57 L 07/12/20 06:50 Pulse Ox 98 07/12/20 06:50 - Orders/Labs/Meds Orders: Active Orders 24 hr Category Date Time Status Mehta Catheter Insertion [Insert Urinary Catheter] [OM. Care 07/12/20 04:45 Ordered PC] Q24H CXR [Chest 1V Frontal] [CR] Stat Exams 07/12/20 04:35 Taken CULTURE BLOOD [BC] Stat Lab 07/12/20 05:40 Received CULTURE BLOOD [BC] Stat Lab 07/12/20 05:51 Received UA W/MICROSCOPIC [URIN] Stat Lab 07/12/20 04:35 Ordered BiPAP [RESPCARE] Urgent Oth 07/12/20 04:30 Active Blood Culture x2 Reflex Set [OM.PC] Stat Oth 07/12/20 05:20 Ordered Labs: Laboratory Tests 07/12/20 07/12/20 07/12/20 Range/Units 04:32 04:32 04:32 WBC 0.15 L* (4.23-9.07) K/mm3 RBC 3.03 L (4.63-6.08) M/mm3 Hgb 8.9 L (13.7-17.5) gm/dl Hct 26.5 L (40.1-51.0) % MCV 87.5 (79.0-92.2) fl MCH 29.4 (25.7-32.2) pg MCHC 33.6 (32.2-35.5) g/dl RDW Std Deviation 45.3 H (35.1-43.9) fL Plt Count 15 L* (163-337) K/mm3 MPV 8.5 L (9.4-12.3) fl Neut % (Auto) 0 L (34.0-67.9) % Lymph % (Auto) 100.0 H (21.8-53.1) % [place] % (Auto) 0.0 L (5.3-12.2) % Eos % (Auto) 0 L (0.8-7.0) Baso % (Auto) 0.0 L (0.1-1.2) % Neut # (Auto) 0.00 L (1.78-5.38) K/mm3 Lymph # (Auto) 0.15 L (1.32-3.57) K/mm3 [place] # (Auto) 0 L (0.30-0.82) K/mm3 Eos # (Auto) 0.00 L (0.04-0.54) K/mm3 Baso # (Auto) 0.00 L (0.01-0.08) K/mm3 Manual Slide Review Abnormal smear PT (9.7-12.0) SECONDS INR Sodium 137 (136-145) mEq/L Potassium 4.1 (3.5-5.1) mEq/L Chloride 100 (98-107) mEq/L Carbon Dioxide 23 (21-32) mEq/L Anion Gap 18.1 H (5-15) BUN 54 H (7-18) mg/dL Creatinine 2.7 H D (0.7-1.3) mg/dL Est Cr Clr Drug Dosing TNP Estimated GFR (MDRD) 23 (>60) mL/min BUN/Creatinine Ratio 20.0 H (14-18) Glucose 124 H (83-115) mg/dL Lactic Acid (0.4-2.0) mmol/L Calcium 9.4 (8.5-10.1) mg/dL Total Bilirubin 3.9 H (0.2-1.0) mg/dL AST 9 L (15-37) U/L ALT 37 (16-63) U/L Alkaline Phosphatase 48 (46-116) U/L Troponin I < 0.017 (0.00-0.056) ng/mL NT-Pro-B Natriuret Pep 30944 H (0-125) pg/mL Total Protein 5.8 L (6.4-8.2) g/dl Albumin 1.8 L (3.4-5.0) g/dl Globulin 4.0 gm/dL Albumin/Globulin Ratio 0.5 L (1-2) 07/12/20 07/12/20 Range/Units 04:32 04:45 WBC (4.23-9.07) K/mm3 RBC (4.63-6.08) M/mm3 Hgb (13.7-17.5) gm/dl Hct (40.1-51.0) % MCV (79.0-92.2) fl MCH (25.7-32.2) pg MCHC (32.2-35.5) g/dl RDW Std Deviation (35.1-43.9) fL Plt Count (163-337) K/mm3 MPV (9.4-12.3) fl Neut % (Auto) (34.0-67.9) % Lymph % (Auto) (21.8-53.1) % [place] % (Auto) (5.3-12.2) % Eos % (Auto) (0.8-7.0) Baso % (Auto) (0.1-1.2) % Neut # (Auto) (1.78-5.38) K/mm3 Lymph # (Auto) (1.32-3.57) K/mm3 [place] # (Auto) (0.30-0.82) K/mm3 Eos # (Auto) (0.04-0.54) K/mm3 Baso # (Auto) (0.01-0.08) K/mm3 Manual Slide Review PT 30.8 H (9.7-12.0) SECONDS INR 2.94 Sodium (136-145) mEq/L Potassium (3.5-5.1) mEq/L Chloride (98-107) mEq/L Carbon Dioxide (21-32) mEq/L Anion Gap (5-15) BUN (7-18) mg/dL Creatinine (0.7-1.3) mg/dL Est Cr Clr Drug Dosing Estimated GFR (MDRD) (>60) mL/min BUN/Creatinine Ratio (14-18) Glucose (83-115) mg/dL Lactic Acid 6.5 H* (0.4-2.0) mmol/L Calcium (8.5-10.1) mg/dL Total Bilirubin (0.2-1.0) mg/dL AST (15-37) U/L ALT (16-63) U/L Alkaline Phosphatase (46-116) U/L Troponin I (0.00-0.056) ng/mL NT-Pro-B Natriuret Pep (0-125) pg/mL Total Protein (6.4-8.2) g/dl Albumin (3.4-5.0) g/dl Globulin gm/dL Albumin/Globulin Ratio (1-2) Meds: Medications Discontinued Medications Generic Name Dose Route Start Last Admin Trade Name Nicolette PRN Reason Stop Dose Admin Furosemide Confirm 07/12/20 04:34 07/12/20 05:03 Lasix Administered 07/12/20 04:35 Not Given Dose 100 mg .ROUTE .STK-MED ONE Furosemide 60 mg 07/12/20 05:01 07/12/20 05:02 Lasix IVPUSH 07/12/20 05:02 60 mg NOW ONE Administration Dobutamine HCl/Dextrose Confirm 07/12/20 04:52 07/12/20 05:03 Dobutamine In D5w 250 Mg/250 Ml Administered 07/12/20 04:53 Not Given Dose 250 mg in 250 mls @ as directed .ROUTE .STK-MED ONE Dobutamine HCl/Dextrose 250 mg in 250 mls @ 15.241 mls/hr 07/12/20 05:15 07/12/20 06:41 Dobutamine In D5w 250 Mg/250 Ml IV 10 mcg/kg/min TITRATE PRIYA 76.204 mls/hr Titration Protocol 2 MCG/KG/MIN Norepinephrine Bitartrate 4 mg 250 mls @ 7.5 mls/hr 07/12/20 05:38 07/12/20 05:44 / Dextrose/Water IV 07/13/20 14:57 2 mcg/min STAT STA 7.5 mls/hr Administration Protocol 2 MCG/MIN Vancomycin HCl 2 gm/ Sodium 500 mls @ 250 mls/hr 07/12/20 05:47 07/12/20 06:08 Chloride IV 07/12/20 05:48 250 mls/hr ONETIME ONE Administration Cefepime HCl 2 gm/ Premix 50 mls @ 100 mls/hr 07/12/20 05:47 07/12/20 05:54 IV 07/12/20 06:16 100 mls/hr ONETIME ONE Administration - Radiology Interpretation Free Text/Narrative:: X-ray suggest an even more enlarged heart that was back on July 01. He does appear to have continued infiltrate in the right lower lobe and suggestion of so me mild congestive failure bilaterally. - Re-Assessments/Exams Free Text/Narrative Re-Assessment/Exam: 07/12/20 04:46 First arrived in the ER his pulse ox on 4 L like 87%. We placed him on BiPAP almost immediately the pulse ox is up to 91-95 % and then taught about 45% O2 his blood pressure is somewhat low systolic 60s and yet he is acting alert and interactive and wanting to sit up does not appear to be confused so I am not certain that is a accurate blood pressure for him. 07/12/20 04:52 Patient's blood pressure is about 64 systolic though he seems to be tolerating it well. I am going to start him on some dobutamine to help his heart contract better and support that as well as bleeding bring his blood pressure up were looking for a blood pressure titrated to about 90 systolic and will hold it there. 07/12/20 05:46 spoke to the pharmacist nurse transitional and she has adjusted the dose of vancomycin for his weight and his creatinine to 2 g and the cefepime adjusted to his weight and the creatinine of also 2 g. 07/12/20 05:[address] Huizar the steam heating installer at [facility] and will start him on a norepinephrine drip and give him some vancomycin and cefepime. Transport him to [facility] as soon as we feel he is stable. This entire time the patient has been awake and alert and talking with this. His pulse ox is running at 94% pulse is 65. Pressure prior to the norepinephrine was 58 systolic with a MAP of 47. 07/12/20 06:03 The Levophed drip has brought his systolic blood pressure to 88. Patient is feeling better and feeling like he is breathing better with the BiPAP. The x- ray from July 01 and the one from today has been sent down to [facility]. Started the cefepime and vancomycin in the ER. I believe the cefe pime will be finished by the time the ambulance arrives and then we will start the vancomycin for his trip to [place]. 07/12/20 08:07 Critical care time was 2 hours Departure - Departure Time of Disposition: 05:50 Disposition: DC/Tfer to [facility] 02 Condition: Critical Clinical Impression: Cardiomegaly, Thrombocytopenia, Renal insufficiency, Elevated lactic acid level, Prothrombin time increased Hypotension Qualifiers: Hypotension type: unspecified hypotension type Qualified Code(s): I95.9 - Hypotension, unspecified Sepsis Qualifiers: Sepsis type: sepsis due to unspecified organism Sepsis acute organ dysfunction status: without acute organ dysfunction Qualified Code(s): A41.9 - Sepsis, unspecified organism Congestive heart failure Qualifiers: Heart failure type: unspecified Heart failure chronicity: acute Qualified Code(s): I50.9 - Heart failure, unspecified Neutropenia Qualifiers: Neutropenia type: unspecified Qualified Code(s): D70.9 - Neutropenia, unspecified Anemia Qualifiers: Anemia type: unspecified type Qualified Code(s): D64.9 - Anemia, unspecified - Discharge Information Referrals: Christopher Melgoza MD [Primary Care Provider] - Sepsis Event Note (ED) - Focused Exam Vital Signs: Vital Signs Temp Pulse Resp BP Pulse Ox 07/12/20 06:50 66 29 H 87/57 L 98 07/12/20 06:19 64 31 H 73/26 L 97 07/12/20 05:55 97.8 F 65 37 H 88/40 L 96 07/12/20 04:56 96.5 F L 63 29 H 62/42 L 84 L ED Communication - ED Communication Date/Time Date: 07/12/20 Time Called: 05:50 - Discussed Case With (1) Discussed Case With (1): Admitting Provider Person/s Notified (1): Dr. Morton (Greased except the patient for further evaluation and treatment) - My Orders Last 24 Hours: My Active Orders 07/12/20 04:30 BiPAP [RESPCARE] Urgent 07/12/20 04:35 CXR [Chest 1V Frontal] [CR] Stat UA W/MICROSCOPIC [URIN] Stat 07/12/20 04:45 Mehta Catheter Insertion [Insert Urinary Catheter] [OM.PC] Q24H 07/12/20 05:20 Blood Culture x2 Reflex Set [OM.PC] Stat 07/12/20 05:40 CULTURE BLOOD [BC] Stat 07/12/20 05:51 CULTURE BLOOD [BC] Stat - Assessment/Plan Last 24 Hours: My Active Orders 07/12/20 04:30 BiPAP [RESPCARE] Urgent 07/12/20 04:35 CXR [Chest 1V Frontal] [CR] Stat UA W/MICROSCOPIC [URIN] Stat 07/12/20 04:45 Mehta Catheter Insertion [Insert Urinary Catheter] [OM.PC] Q24H 07/12/20 05:20 Blood Culture x2 Reflex Set [OM.PC] Stat 07/12/20 05:40 CULTURE BLOOD [BC] Stat 07/12/20 05:51 CULTURE BLOOD [BC] Stat
[2020-07-12] MEDS ORDERED: DOBUTamine/Dextrose 5%-Water 250 MG/250 ML BAG ONE (04:52)
[2020-07-12] MEDS ORDERED: Furosemide 100 MG/10 ML SDV IVPUSH ONE (05:01)
[2020-07-12] MEDS ORDERED: DOBUTamine/Dextrose 5%-Water 250 MG/250 ML BAG IV SCH (05:15)
[2020-07-12] MEDS ORDERED: Norepinephrine 4 MG in Dextrose 5% in Water 246 ML IV STA ×2 (05:38)
[2020-07-12] MEDS ORDERED: Cefepime 2 GM in Premix Bag 1 BAG IV ONE (05:47)
[2020-07-12] MEDS ORDERED: Vancomycin 2 GM in Sodium Chloride 0.9% 500 ML IV ONE (05:47)
--- NOTE | 2020-07-12 11:08 | CR ---
Chest: Portable view of the chest was obtained. Comparison: Prior chest imaging the 07/01/20 and 06/30/20. Increased density within both lung bases is seen. Findings on the right side are stable. Findings on the left side are an interval change. Heart is enlarged. Upper lungs are clear. Bony structures are grossly intact. Impression: 1. Bibasilar areas of increased density presumably due to pneumonia. Findings on the right side are stable and finding on the left side has increased from prior study. 2. Stable cardiomegaly. Diagnostic code #3
== END 2020-07-12 06:59 ==
LOC: JD.ED 04:26
DX: A41.9 Sepsis, unspecified organism (principal); I11.0 Hypertensive heart disease with heart failure; I50.9 Heart failure, unspecified; D70.9 Neutropenia, unspecified; D69.6 Thrombocytopenia, unspecified; I95.9 Hypotension, unspecified; R74.01 Elevation of levels of liver transaminase levels; R79.1 Abnormal coagulation profile; R00.0 Tachycardia, unspecified; I25.10 Atherosclerotic heart disease of native coronary artery without angina pectoris; I25.2 Old myocardial infarction; I45.10 Unspecified right bundle-branch block; Z88.8 Allergy status to other drugs, medicaments and biological substances; Z79.899 Other long term (current) drug therapy
CPT/HCPCS: 36415; 51702; 71045; 80053; 83605; 83880; 84484; 85025; 85610; 87040; 87077; 87181; 87184; 87186; 93005; 94660; 96365; 96367; 96368; 96375; 99285; J0692; J1250; J1940; J3370; J7040; J7060; 93010; 99291; 99292